=== PATIENT | male | born 1995 | race Caucasian/White ===

== ENCOUNTER 2019-11-20 17:00 | Emergency (ER) | payer OTHER, SELFPAY ==
[2019-11-20 17:14] VITALS: BP 125/78; PULSE 105; RESP 16; TEMP 36.4; O2SAT 99
--- NOTE | 2019-11-20 18:19 | ED.WOUNDLAC ---
HPI - Wound/Laceration General Chief Complaint: Wound/Laceration Stated Complaint: Infection Source: patient and RN notes reviewed Mode of arrival: ambulatory Limitations: no limitations History of Present Illness HPI narrative: The patient, on several medications for mood, presents with skin eruption. Patient states he has a shorter, couple day history of inflamed macule at the top of his gluteal crease. No prior rash, fever, discharge, tenesmus; symptoms are mild and improved partially after he tried to express fluid from it. Discussed possible causes including superficial folliculitis versus a deeper pilonidal cyst and will treat conservatively without incising at this early time. Related Data Home Medications Medication Instructions Recorded Confirmed clonazepam 0.5 mg PO DAILY 11/20/19 11/20/19 quetiapine 100 mg PO DAILY 11/20/19 11/20/19 venlafaxine 75 mg PO DAILY 11/20/19 11/20/19 zolpidem 10 mg PO DAILY 11/20/19 11/20/19 Allergies Allergy/AdvReac Type Severity Reaction Status Date / Time No Known Allergies Allergy Unknown Unverified 11/03/18 12:18 Review of Systems Review of Systems: Narrative: General/Constitutional: No weight loss,fever Eyes: N0: Redness,discharge Ears/Nose/Throat: No: Epistaxis,ear discharge Respiratory: Denies: Hemoptysis Gastrointestinal: No Vomiting, Bleeding-rectal Skin: No Lumps, eruption Neurologic: No Focal Weakness,Sz Hematologic: Denies: Petechiae/Purpura Psychiatric: No: Suicida ideationl All Other Systems: Reviewed and Negative PMFSH Comments At time of signature, agree with nursing past medical, surgical, social and family history. There is no relevant family history pertinent to the presenting complaint Exam Narrative: Exam Narrative: General Appearance: Well-nourished, Normocephalic Eye: PERRLA, Conjunctiva clear Mouth/Throat: Normal appearing, Supple Respiratory: Airway patent, No respiratory distress Musculoskeletal: Moves all extremities, Non tender Skin: Warm, Dry smaller rhiannon-sized macule at top of gluteal crease with slight surrounding redness; no abscess/fluctuance/induration Neurological: A&O x3, Normal affect Course Vital Signs Vital signs: Vital Signs Temperature 97.5 F L 11/20/19 17:14 Pulse Rate 105 H 11/20/19 17:14 Respiratory Rate 16 11/20/19 17:14 Blood Pressure 125/78 11/20/19 17:14 Pulse Oximetry 99 11/20/19 17:14 Temperature 97.5 F L 11/20/19 17:14 Pulse Rate 105 H 11/20/19 17:14 Respiratory Rate 16 11/20/19 17:14 Blood Pressure 125/78 11/20/19 17:14 Pulse Oximetry 99 11/20/19 17:14 Discharge Plan Discharge Clinical Impression: Folliculitis Patient Disposition: Home, Self-Care Condition: Stable Instructions: Antibiotic Form, Pilonidal Cyst (ED), Folliculitis (ED) Prescriptions: New mupirocin 2 % ointment 1 applic TOPICAL TID Qty: 30 RF: 0 clindamycin HCl 300 mg capsule 300 mg PO Q6H Qty: 21 RF: 0 No Action venlafaxine 75 mg capsule,extended release 24hr 75 mg PO DAILY RF: 0 clonazepam 0.5 mg tablet 0.5 mg PO DAILY RF: 0 quetiapine 100 mg tablet 100 mg PO DAILY RF: 0 zolpidem 10 mg tablet 10 mg PO DAILY RF: 0 Interventions: Discharge Disposition Last Done: 11/20/19 17:25 Follow-up/Referrals: PHYSICIAN NOT ON STAFF,NONSTAFF [Primary Care Provider] - Discharge Date/Time: 11/20/19 17:25
== END 2019-11-20 17:25 | disposition home or self-care (01) ==
PROVIDERS: Emergency Provider Emergency Medicine
DX: L73.9 Follicular disorder, unspecified (principal); F31.9 Bipolar disorder, unspecified; F41.9 Anxiety disorder, unspecified
CPT/HCPCS: 99213; G0463

== ENCOUNTER 2019-11-24 17:35 | Emergency (ER) | payer OTHER, SELFPAY ==
[2019-11-24 17:40] VITALS: BP 113/81; PULSE 106; RESP 16; TEMP 36.9; O2SAT 99
--- NOTE | 2019-11-24 17:46 | ED.EYEPROB ---
HPI - Eye Problem General Chief complaint: Eye Problems Stated complaint: redness left eye Time Seen by Provider: 11/24/19 17:46 Source: patient and RN notes reviewed Mode of arrival: ambulatory Limitations: no limitations History of Present Illness HPI Narrative: 24-year-old male presents with concern for left eye redness, discharge, irritation. Denies wearing contact lenses, denies eye pain or vision changes. Denies any intervention for his problem chief complaint: eye redness Related Data Home Medications Medication Instructions Recorded Confirmed clonazepam 0.5 mg PO DAILY 11/20/19 11/24/19 quetiapine 100 mg PO DAILY 11/20/19 11/24/19 venlafaxine 75 mg PO DAILY 11/20/19 11/24/19 zolpidem 10 mg PO DAILY 11/20/19 11/24/19 Allergies Allergy/AdvReac Type Severity Reaction Status Date / Time No Known Allergies Allergy Unknown Verified 11/24/19 17:48 Review of Systems Review of Systems: Narrative: CONSTITUTIONAL: Denies malaise, chills, sweats, or fever. EYES: Denies visual changes. Reports left eye redness, purulent discharge. ENT: Denies rhinorrhea, congestion, sinus pain, otalgia or sore throat. RESPIRATORY: Denies cough or dyspnea. SKIN: Denies rash or itching. NEUROLOGIC: Denies headache. All systems reviewed & are unremarkable except as noted in HPI and below PMFSH Comments At time of signature, agree with nursing past medical, surgical, social and family history. There is no relevant family history pertinent to the presenting complaint Exam Narrative: Exam Narrative: GENERAL: Well-appearing, well-nourished, and in no acute distress. HEAD: Normocephalic, atraumatic. EYES: PERRLA and EOMI. No nystagmus. Left eye conjunctive and sclera clear. Right eye conjunctive and sclera injected, drainage noted ENT: Nares clear. Mucous membranes moist. Oropharynx without erythema or lesions. Tonsils not enlarged and without exudate. NECK: Supple. CHEST: No respiratory distress. Speaks in full sentences. HEART: Regular rate and rhythm SKIN: Warm, dry, no rash. NEURO: Alert and oriented x3. PSYCH: Normal mood and affect Course Course Emergency Course: Patient is aware of diagnosis, understands and agrees to treatment plan. Anticipatory guidance given. Patient agrees to follow-up as directed and is aware of reasons to seek care at the emergency department. Portions of this record may have been created with voice recognition software Vital Signs Vital signs: Vital Signs Temperature 98.5 F 11/24/19 17:40 Pulse Rate 106 H 11/24/19 17:40 Respiratory Rate 16 11/24/19 17:40 Blood Pressure 113/81 11/24/19 17:40 Pulse Oximetry 99 11/24/19 17:40 Temperature 98.5 F 11/24/19 17:40 Pulse Rate 106 H 11/24/19 17:40 Respiratory Rate 16 11/24/19 17:40 Blood Pressure 113/81 11/24/19 17:40 Pulse Oximetry 99 11/24/19 17:40 Reviewed. MDM - Eye Problem MDM Narrative Medical decision making narrative: Consideration of the following conditions may be warranted for the presenting problem, they are not final diagnoses: Bacterial conjunctivitis, allergic conjunctivitis, viral conjunctivitis, foreign body, blepharitis, chalazion, hordeolum, corneal abrasion. Exam findings show no acute concerns or changes; patient is non-toxic appearing and is in no distress. Patient is appropriate for outpatient treatment and follow-up. Critical Care Time Critical Care Time Critical Care Time: No Discharge Plan Discharge Clinical Impression: Conjunctivitis Qualifiers: Conjunctivitis type: acute Acute conjunctivitis type: bacterial Laterality: left Qualified Code(s): H10.32 - Unspecified acute conjunctivitis, left eye Patient Disposition: Home, Self-Care Condition: Stable Instructions: Conjunctivitis (ED) Additional Instructions: Do not touch or rub your eye. Use a warm or cool washcloth on your eye for comfort Use eyedrops as directed Practice good handwashing and hygiene to prevent spread
== END 2019-11-24 18:01 | disposition home or self-care (01) ==
PROVIDERS: Emergency Provider Nurse Practitioner
DX: H10.32 Unspecified acute conjunctivitis, left eye (principal); F41.9 Anxiety disorder, unspecified; F31.9 Bipolar disorder, unspecified
CPT/HCPCS: 99213; G0463

== ENCOUNTER 2020-06-03 11:10 | Emergency (ER) | payer OTHER, SELFPAY ==
[2020-06-03 11:40] VITALS: BP 112/90; PULSE 91; RESP 12; TEMP 36.8; O2SAT 97
--- NOTE | 2020-06-03 12:06 | ED.URI ---
HPI - URI/Sore Throat General Chief Complaint: Upper Respiratory Infection Stated Complaint: sore throat Source: patient and RN notes reviewed Limitations: no limitations History of Present Illness HPI Narrative: The patient, who is on several medications for mood, presents with sore throat. Patient states he has half week history of mild scratchy sore throat. No fever measured, CP, loss of taste/smell, S OB, earache, rash, V/D. Symptoms are mild, worse with swallowing Related Data Home Medications Medication Instructions Recorded Confirmed clonazepam 0.5 mg PO DAILY 11/20/19 06/03/20 quetiapine 100 mg PO DAILY 11/20/19 06/03/20 Allergies Allergy/AdvReac Type Severity Reaction Status Date / Time No Known Allergies Allergy Unknown Verified 06/03/20 11:34 Review of Systems Review of Systems: Narrative: General/Constitutional: No weight loss,fever Eyes: N0: Redness,discharge Ears/Nose/Throat: No: Epistaxis,ear discharge Respiratory: Denies: Hemoptysis Gastrointestinal: No Vomiting, Bleeding-rectal Skin: No Lumps, eruption Neurologic: No Focal Weakness,Sz Hematologic: Denies: Petechiae/Purpura Psychiatric: No: Suicida ideationl All Other Systems: Reviewed and Negative PMFSH Comments At time of signature, agree with nursing past medical, surgical, social and family history. There is no relevant family history pertinent to the presenting complaint Exam Narrative: Exam Narrative: General Appearance: Well appearing, Well nourished EYE: PERRLA, Conjunctiva clear Ears: Auditory canal normal, TM normal Nose: Rhinorrhea, Mucousal erythema Mouth/Throat: MM moist, Uvula midline, Pharyngeal erythema Neck: Supple, No adenopathy Respiratory: No respiratory distress, Breath sounds equal, Clear to auscultation Cardiovascular: No JVD Musculoskeletal: Non tender, Normal strength Skin: Warm, Dry Neurological: A&O x3, CN II-XII intact Psychiatric: Normal mood, Normal affect Course Vital Signs Vital signs: Vital Signs Temperature 98.2 F 06/03/20 11:40 Pulse Rate 91 06/03/20 11:40 Respiratory Rate 12 06/03/20 11:40 Blood Pressure 112/90 06/03/20 11:40 Pulse Oximetry 97 06/03/20 11:40 Temperature 98.2 F 06/03/20 11:40 Pulse Rate 91 06/03/20 11:40 Respiratory Rate 12 06/03/20 11:40 Blood Pressure 112/90 06/03/20 11:40 Pulse Oximetry 97 06/03/20 11:40 MDM - URI/Sore Throat Lab Data Labs: Lab Results 06/03/20 Range/Units 12:07 POC SARS CoV-2 Ag Negative (Negative) Strep Screen Presumptive Negative *(Reference Range: Negative)* Discharge Plan Discharge Clinical Impression: Pharyngitis Qualifiers: Pharyngitis/tonsillitis etiology: unspecified etiology Qualified Code(s): J02.9 - Acute pharyngitis, unspecified Patient Disposition: Home, Self-Care Condition: Stable Instructions: Antibiotic Form, Pharyngitis (ED) Prescriptions: New azithromycin 250 mg tablet See Rx Instructions .ROUTE .COMPLEX Qty: 6 RF: 0 Lidocaine Viscous 2 % solution 5 ml MUCOUS MEM QID PRN (Reason: pain) Qty: 100 RF: 0 No Action clonazepam 0.5 mg tablet 0.5 mg PO DAILY RF: 0 quetiapine 100 mg tablet 100 mg PO DAILY RF: 0 Follow-up/Referrals: PHYSICIAN,[facility] [Primary Care Provider] -
== END 2020-06-03 12:27 | disposition home or self-care (01) ==
PROVIDERS: Emergency Provider Emergency Medicine
DX: J02.9 Acute pharyngitis, unspecified (principal); Z20.822 Contact with and (suspected) exposure to COVID-19; F31.9 Bipolar disorder, unspecified; F41.9 Anxiety disorder, unspecified
CPT/HCPCS: 87081; 87426; 87880; 99213; C9803; G0463

== ENCOUNTER 2020-07-27 17:53 | Emergency (ER) | payer OTHER, SELFPAY ==
--- NOTE | ~2020-07-27 | XR_ITS ---
EXAMINATION: XR chest 2V DATE: 07/27/2020 18:08 INDICATION: Shortness of breath. Difficulty sleeping. TECHNIQUE: PA and lateral views of the chest were obtained. COMPARISON: None FINDINGS: The lungs are clear with no focal airspace opacities, pulmonary edema, pleural effusion or pneumothor ax. The cardiomediastinal silhouette is normal. Mild thoracic spondylosis. IMPRESSION: 1. No acute cardiopulmonary disease. Reviewed, dictated and finalized at location A.
[2020-07-27 17:56] VITALS: BP 105/70; PULSE 77; RESP 18; TEMP 36.7; O2SAT 98
--- NOTE | 2020-07-27 17:56 | ED.GENADULT ---
HPI - General Adult General Chief complaint: Unspecified Stated complaint: not able to sleep/difficulty breathing Source: patient Limitations: no limitations History of Present Illness HPI narrative: The patient, who has a history of substance abuse and bipolar disorder, presents with insomnia. Patient states and records review indicates he is received prescriptions for Seroquel, Suboxone, Zyprexa this month. Patient states he has had insomnia the last couple days associated with mild evening shortness of breath, and specifically requests refill for Seroquel and something for sleep. He comments his last use was over a month ago, primarily hydrocodone tablets [though he has used heroin in the remote past]. Insomnia symptoms are mild, unrelieved with OTC preparations like melatonin, he s out of clonazepam. No suicidal/homicidal ideation, flight of ideas, guilt, weight loss. Patient advised to see his regular doctors, and a small dose will be provided till then Related Data Home Medications Medication Instructions Recorded Confirmed clonazepam 0.5 mg PO DAILY 11/20/19 06/03/20 quetiapine 100 mg PO DAILY 11/20/19 06/03/20 buprenorphine-naloxone film 07/27/20 olanzapine mg 07/27/20 Allergies Allergy/AdvReac Type Severity Reaction Status Date / Time No Known Allergies Allergy Unknown Verified 06/03/20 11:34 Review of Systems Review of Systems: Narrative: General/Constitutional: No weight loss,fever Eyes: N0: Redness,discharge Ears/Nose/Throat: No: Epistaxis,ear discharge Respiratory: Denies: Hemoptysis Gastrointestinal: No Vomiting, Bleeding-rectal Skin: No Lumps, eruption Neurologic: No Focal Weakness,Sz Hematologic: Denies: Petechiae/Purpura Psychiatric: No: Suicida ideationl All Other Systems: Reviewed and Negative [facility] Comments At time of signature, agree with nursing past medical, surgical, social and family history. There is no relevant family history pertinent to the presenting complaint Exam Narrative: Exam Narrative: General Appearance: Well appearing, No distress EYE: PERRLA, Conjunctiva clear Ears: External ear normal Nose: Normal nose Mouth/Throat: Normal appearing, Normal lips Neck: Supple Respiratory: Airway patent, No respiratory distress, CTA Cardiovascular: RRR Abdomen: Soft, Non-tender, Musculoskeletal: Full ROM Skin: Warm, Dry Neurological: A&O x3, CN II-X intact Psychiatric: Normal mood, Normal affect Course Vital Signs Vital signs: Vital Signs Temperature 98.1 F 07/27/20 17:56 Pulse Rate 77 07/27/20 17:56 Respiratory Rate 18 07/27/20 17:56 Blood Pressure 105/70 07/27/20 17:56 Pulse Oximetry 98 07/27/20 17:56 Temperature 98.1 F 07/27/20 18:01 Pulse Rate 77 07/27/20 18:01 Respiratory Rate 18 07/27/20 18:01 Blood Pressure 105/70 07/27/20 18:01 Pulse Oximetry 98 07/27/20 18:01 Medical Decision Making Vital Signs Vital Signs: Vital Signs Temperature 98.1 F 07/27/20 17:56 Pulse Rate 77 07/27/20 17:56 Respiratory Rate 18 07/27/20 17:56 Blood Pressure 105/70 07/27/20 17:56 Pulse Oximetry 98 07/27/20 17:56 Temperature 98.1 F 07/27/20 18:01 Pulse Rate 77 07/27/20 18:01 Respiratory Rate 18 07/27/20 18:01 Blood Pressure 105/70 07/27/20 18:01 Pulse Oximetry 98 07/27/20 18:01 Discharge Plan Discharge Clinical Impression: Insomnia, Hx of bipolar disorder Patient Disposition: Home, Self-Care Condition: Stable Instructions: Insomnia (ED) Prescriptions: New quetiapine [Seroquel] 100 mg tablet 100 mg PO DAILY Qty: 30 RF: 1 temazepam [Restoril] 7.5 mg capsule 7.5 mg PO HS Qty: 14 RF: 0 No Action clonazepam 0.5 mg tablet 0.5 mg PO DAILY RF: 0 quetiapine 100 mg tablet 100 mg PO DAILY RF: 0 olanzapine 10 mg tablet RF: 0 buprenorphine-naloxone 8-2 mg film RF: 0 Follow-up/Referrals: UNKNOWN,DOCTOR [Primary Care Provider]
[2020-07-27 18:01] VITALS: BP 105/70; PULSE 77; RESP 18; TEMP 36.7; O2SAT 98
== END 2020-07-27 18:22 | disposition home or self-care (01) ==
PROVIDERS: Emergency Provider Emergency Medicine
DX: G47.00 Insomnia, unspecified (principal); F31.9 Bipolar disorder, unspecified; F41.9 Anxiety disorder, unspecified
CPT/HCPCS: 71046; 99213; G0463

== ENCOUNTER 2020-08-10 10:25 | Observation (INO) | payer BC, MEDICAID, SELFPAY ==
[2020-08-10] VITALS (17 sets, daily range): BP systolic 109–142; BP diastolic 68–101; PULSE 71–90; RESP 7–11; TEMP 36.2–36.6; O2SAT 98–100; BMI 20.2
--- NOTE | ~2020-08-10 | CT_ITS ---
EXAMINATION: CT brain wo con DATE: 08/10/2020 12:04 INDICATION: Dysarthria. TECHNIQUE: Computed tomography (CT) of the head was performed without intravenous contrast. The mA wa s adjusted according to patient size. Iterative reconstruction technique was employed. The dose-lengt h product was 681.00 mGy-cm. COMPARISON: None FINDINGS: There is no intracranial hemorrhage, acute infarction, or abnormal intracranial mass lesion . The ventricles are normal in size. The paranasal sinuses are clear. The orbits are normal. The mast oid air cells are normal. IMPRESSION: 1. Normal brain. Reviewed, dictated and finalized at location B. IMPRESSION: 1. Normal brain.
--- NOTE | 2020-08-10 10:38 | ECG_ITS ---
Measurements Intervals [place] Rate: 88 P: 19 MD: 173 QRS: 72 QRSD: 93 T: 28 QT: 330 QTc: 399 Interpretive Statements SINUS RHYTHM BASELINE ARTIFACT- III, V4-V5 NORMAL ECG Electronically Signed On 08-10-2020 10:59:57 CDT by Dugra Kirk D.O.
--- NOTE | 2020-08-10 10:45 | PC.NURSE ---
Pt had emesis of greenish liquid with IV initiation. No pill fragments observed.
[2020-08-10 10:54] LABS: Alveolar/Arterial O2 Gradient 17.9 mmHg; Base Excess ABG -0.7 mEq/l (+/-2.0); Fractional Inspired Oxygen 21 %; HCO3 ABG 25.3 mEq/l (22.0-26.0); Oxygen Content ABG 19.4 %vol (16.0-22.0); Oxygen Saturation ABG 94.6 % (95.0-100.0); Oxyhemoglobin 93.1 % THb (90.0-100.0); PCO2 ABG 46.6 mmHg (35.0-45.0); PO2 FiO2 Ratio Arterial Blood 3.62 %; Total Hemoglobin 14.8 g/dL (12.0-18.0); pH ABG 7.352 (7.350-7.450)
[2020-08-10 10:55] LABS: Device ROOM AIR; Modified Allen's Test Pass; Site Drawn RIGHT RADIAL
[2020-08-10 10:56] LABS: Basophils Percent Auto 0.7 % (0.2-1.2); Eosinophils Absolute Auto 0.1 K/mm3 (0-0.3); Hematocrit 41.7 % (42.0-52.0); Hemoglobin 14.2 g/dL (14.0-18.0); Immature Granulocyte Absolute 0.02 K/mm3 (0.00-0.031); Immature Granulocyte Percent A 0.3 % (0-0.5); Lymphocytes Absolute Auto 1.84 K/mm3 (0.9-3.2); Lymphocytes Percent Auto 30.7 % (18.3-44.2); Mean Corpuscular HGB Conc 34.1 g/dl (32-36); Mean Corpuscular Hemoglobin 30.7 pg (26-34); Mean Corpuscular Volume 90.1 fl (80-100); Monocytes Absolute Auto 0.5 K/mm3 (0.1-0.6); Monocytes Percent Auto 8.5 % (2.6-8.5); Neutrophils Absolute Auto 3.5 K/mm3 (1.3-6.7); Neutrophils Percent Auto 57.8 % (45.5-73.1); Platelet Count Result 293 k/mm3 (150-375); Red Blood Count 4.63 M/mm3 (4.6-6.20); Red Cell Distribution Width 12.6 % (11.5-14.5)
--- NOTE | 2020-08-10 11:00 | PC.NURSE ---
Spoke with Shira from Poison Control - treat symptoms. Peak may go as high as 72 hours
--- NOTE | 2020-08-10 11:00 | ED.OVERDOSE ---
HPI - Overdose General Chief Complaint: Overdose Stated Complaint: OD History of Present Illness HPI Narrative: Patient is a 24-year-old male who presents ER after ingesting approximately 32 tablets of carbamazepine 200 mg extended release. Reports about 2 AM he started taking 5 pills every hour. Reports he wanted to get high. Reports he is never taken pills like this to get high previously. Patient has history of bipolar disorder. He reports that his grandmother is currently dying and on hospice he is very anxious about this and that is another reason he began to take the pills. Denies any attempt to take his own life or any previous attempt to take his own life. Patient contacted family who called 911 because he was slurring his speech this morning and could not move his left leg. He is not able to move his leg but is still very slurry when he speaks. Related Data Home Medications Medication Instructions Recorded Confirmed quetiapine 100 mg PO DAILY 11/20/19 08/10/20 acamprosate 333 mg PO TID 08/10/20 08/10/20 buprenorphine-naloxone 1 film BUCCAL BID 08/10/20 08/11/20 carbamazepine 200 mg PO BID 08/10/20 08/10/20 gabapentin 300 mg PO TID 08/10/20 08/10/20 hydroxyzine HCl 25 mg PO BID 08/10/20 08/10/20 olanzapine 15 mg PO DAILY 08/10/20 08/10/20 propranolol 20 mg PO TID 08/10/20 08/10/20 Allergies Allergy/AdvReac Type Severity Reaction Status Date / Time No Known Allergies Allergy Unknown Verified 08/10/20 11:06 Review of Systems Review of Systems: All systems reviewed & are unremarkable except as noted in HPI and below Constitutional: Constitutional: Denies chills and Denies fever(s) ENT: Denies nasal congestion and Denies sore throat Cardiovascular: Cardiovascular: Denies chest pain and Denies radiating jaw, neck or arm pain Respiratory: Respiratory: Denies cough, Denies dyspnea and Denies wheezing Psychiatric: Psychiatric: Reports anxiety, Reports depression, Denies homicidal ideation and Denies suicidal ideation [facility] Past Medical History Medical History (Updated 08/11/20 @ 23:12 by Aleksander Galarza MD) Alcoholism Bipolar 1 disorder Polysubstance abuse Schizoaffective disorder Surgical History Surgical History (Updated 08/10/20 @ 15:08 by Britany Radford NP) History of facial surgery Jaw reconstruction No pertinent past surgical history Family History Family History (Updated 08/10/20 @ 15:09 by Britany Radford NP) Father Drug abuse Mother Depression Social History Social History (Updated 08/10/20 @ 15:12 by Britany Radford NP) Social History: The patient is single. The patient was back and forth between his mom and dad's house. The patient is disabled due to his mental illness. The patient does not smoke is lifelong nonsmoker. The patient is a full code. He does not have any children. The patient has a history of alcohol abuse. He has a history of polysubstance abuse. The patient last drank approximately 1 week ago. Smoking packs per day: 1 Smoking cigarettes per day: 20.0 Smoking status: Current every day smoker Alcohol intake: unknown Substance use: unknown Gender identity (if verbalized by the patient): Male Spiritual care concerns: No Exam Narrative: Exam Narrative: GENERAL: Well-appearing, well-nourished, and in no acute distress. HEAD: Normocephalic, atraumatic. EYES: PERRL and EOMI. ENT: Mucous membranes moist. CHEST: Clear to auscultation. No respiratory distress. HEART: Regular rate and rhythm. Normal peripheral pulses. ABDOMEN: Soft, nontender, nondistended. EXTREMITIES: Normal range of motion. No edema. SKIN: Warm, dry, no rash. NEURO: Slurred speech. Cranial nerves II through XII otherwise intact. Normal strength and movement of upper and lower extremities. Alert and oriented x3. PSYCH: Denies SI/HI. Patient is forthcoming with information. Not responding to internal stimuli.. Course Vital Signs Vital signs: Vital Signs
[2020-08-10] MEDS: PROMETHAZINE HCL 25 MG/ML AMPUL 12.5 MG IV PUSH ×3 (11:01→21:42)
[2020-08-10] MEDS: SODIUM CHLORIDE 0.9% IV 1,000 ML 999 ML IV CONT (11:04)
[2020-08-10 11:06] LABS: Acetaminophen < 10 ug/mL (10-30); Alanine Aminotransferase 16 U/L (4-50); Albumin Level 4.7 g/dL (3.5-5.1); Alkaline Phosphatase 89 U/L (38-126); Anion Gap 5 mmol/L (8-16); Aspartate Amino Transferase 26 U/L (17-59); Bilirubin,Total 0.3 mg/dL (0.2-1.3); Blood Urea Nitrogen 17 mg/dL (9-20); Calcium 9.5 mg/dL (8.4-10.2); Carbon Dioxide 32 mmol/L (22-30); Chloride 99 mmol/L (98-107); Estimated CRCL calculation 138 ml/min; Estimated Glomerular Filt Rate > 60; Ethanol < 10 mg/dL (<10); Glucose 127 mg/dL (75-110); INR 0.9; Potassium 4.2 mmol/L (3.4-5.0); Prothrombin Time 12.8 Seconds (11.1-14.7); Salicylate < 1.0 mg/dL (2-20); Sodium 136 mmol/L (137-145)
[2020-08-10 11:07] LABS: Partial Thromboplastin Time 29.9 SECONDS (22.3-36.8)
--- NOTE | 2020-08-10 11:17 | PC.NURSE ---
Per Poison Control personnel, do not suggest activated charcoal at this time. Recommend awaiting tegretol level.
[2020-08-10 11:52] LABS: Add Urine Microscopic? YES; Appearance Urine Clear (Clear); Bilirubin Urine Negative (Negative); Blood Urine 1+ (Negative); Color Urine Yellow (Yellow); Glucose Urine UA Negative (Negative); Ketones Urine Negative (Negative); Leukocyte Esterase Ur Negative LEU/UL (Negative); Mucus Urine Rare /lpf; Nitrate Urine Negative (Negative); Protein Urine Negative (Negative); RBC Urine 21-50 /hpf (0-2); Specific Grav Ur 1.024 (1.001-1.035); Urobilinogen Urine Negative mg/dL (<2.0); WBC Urine 0-3 /hpf
--- NOTE | 2020-08-10 12:19 | PC.NURSE ---
Pt returns from CT. Easily arousable but remains extremely drowsy. Awakens himself with snoring occasionally. Denies nausea. Mother at bedside updated on care.
[2020-08-10 12:25] LABS: Amphetamine Screen Urine Negative (Negative); Barbiturate Screen Urine Negative (Negative); Benzodiazepines Screen Urine Negative (Negative); Cannabinoid Screen Urine Negative (Negative); Cocaine Screen Urine Negative (Negative); Methadone Screen Urine Negative (Negative); Opiate Screen Urine Negative (Negative); Phencyclidine Screen Urine Negative (Negative)
--- NOTE | 2020-08-10 12:33 | PC.NURSE ---
Admission orders received. Awaiting bed assignment.
--- NOTE | 2020-08-10 12:47 | PC.NURSE ---
Continue to await bed assignment. Pt asleep on stretcher. Easily arousable, but unable to stay awake for more than a few minutes. Pt's speech becoming more slurred and difficult to understand.
[2020-08-10] MEDS: LACTATED RINGERS 1,000 ML 125 ML IV CONT ×2 (12:50→19:57)
--- NOTE | 2020-08-10 13:30 | PC.NURSE ---
MAYA Garg for Hospitalist, at bedside for evaluation.
--- NOTE | 2020-08-10 13:55 | PC.NURSE ---
Per MAYA Garg, mother does not wish crisis contacted for personal reasons and relationship with them.
--- NOTE | 2020-08-10 14:43 | PC.NURSE ---
Per [facility], monitor sodium, as overdose can cause hyponatremia. Monitor BUN and Creatinine as levels can be altered as well with tegretol overdoses.
--- NOTE | 2020-08-10 14:53 | PM.IMHP ---
H&P: HPI History of Present Illness Date/Time: 08/10/20 14:53Thiosito is a 24-year-old female patient who has a history of alcoholism, narotic abuse, schizoaffective bipolar disorder, generalized anxiety, and methamphetamine abuse. The patient has had multiple medication changes over the last few months. The patient has gone to [facility] in the past for drugs and alcohol rehab. The patient was on Seroquel then taken off and then he was placed back on Seroquel. The patient has been dealing with a very ill grandmother that has been upsetting him and the patient has not been sleeping very well over the last couple nights. The patient is disabled due to his mental diseases. The patient resides with his parents. The patient stays with his mom some days and then lives with his dad other days. His mother noticed that he started drinking alcohol again this past week ,she noticed that some of the bottles were empty. The patient's mother made him his get rid of the alcohol bottles. The patient's mother was giving him his medications daily and he around her trust so she allowed him to take his own medication once again. The patient had overdosed on and diazepam in the past and is no longer prescribe this. Looks like the patient may be on hydroxyzine for his anxiety. The mother noticed that he has been more anxious recently due to his grandmother's illness. The patient had been ingesting approximately 32 tablets of carbamazepine 200 mg extended release. He started taking them at 2:00 a.m. and took 5 pills every hour. The patient told his mother that he was just trying to get high and get some sleep. The family contacted 911 because he was slurring speech this morning and could move his left leg. Carbamazepine level was drawn and sent out. I spoke with Dr. Guillaume the psychiatrist who stated if the patient is willing to be admitted to to she inpatient when he is medically stable he will accept the patient I spoke with the mother who is in agreement. The patient is too lethargic to answer questions at this time. The patient is being admitted to ICU as observation status on 08/10/2020. Chief Complaint: Overdose Review of Systems Review of Systems: All systems reviewed & are unremarkable except as noted in HPI and below Constitutional: Constitutional: Reports as per HPI and Reports no additional constitutional complaints Eyes: Eyes: Reports as per HPI and Reports no additional eye complaints ENT: Reports system reviewed and no additional complaints, except as documented and Reports Normal hearing present Cardiovascular: Cardiovascular: Reports no additional cardiovascular complaints Respiratory: Respiratory: Reports no additional respiratory complaints and Reports no additional respiratory complaints Gastrointestinal: Gastrointestinal: Reports as per HPI and Reports no additional gastrointestinal complaints Musculoskeletal: Musculoskeletal: Reports no additional musculoskeletal complaints Integumentary/Breasts: Skin/Breast: Reports system reviewed and no additional complaints, except as docu and Reports as per HPI Neurologic: Reports system reviewed and no additional complaints, except as documented, Reports as per HPI and Reports Normal hearing present Psychiatric: Psychiatric: Reports no additional psychiatric complaints and Reports as per HPI Endocrine: Endocrine: Reports no additional endocrine complaints Hematologic/Lymphatic: Hematologic/Lymphatic: Reports no additional hematologic/lymphatic complaints Allergic/Immunologic: Allergic/Immunologic: Reports no additional allergic/immunologic complaints [facility] Past Medical History Medical History (Updated 08/10/20 @ 15:08 by Britany Radford NP) Alcoholism Bipolar 1 disorder Polysubstance abuse Schizoaffective disorder Surgical History Surgical History (Updated 08/10/20 @ 15:08 by Britany Radford NP) History of facial surgery Jaw reconstruction No pertinent past surgical history
--- NOTE | 2020-08-10 15:29 | ADMGEN ---
This patient, Sidney Gold, was admitted to Intensive Care Unit-11 at 1510. Patient/family oriented to hospital policies and general routines including ID bracelet, bed and alarms, visiting hours, pain management, procedures, bathroom and other care routines, personal items, smoking policy, room service/diet, and visiting hours. Information on how to activate the Rapid Response Team has been discussed. Patient/Family are encouraged to report perceived risks to care and to ask questions if they do not understand what they are told or what they should do.
--- NOTE | 2020-08-10 16:11 | PC.NURSE ---
Gave patients mom Ana Maria bottle of carbamazepime bottle to take home.
--- NOTE | 2020-08-10 18:20 | PC.NURSE ---
Poison control called at 1814, talked to Stephanie, gave lab values over phone and vital signs. Poison control has no interventions to be done at this time.
--- NOTE | 2020-08-10 23:07 | PC.NURSE ---
Call from poison control center at 2244 pm. Spoke to Stephanie who was requesting updates on patient status. Vitals and labs reviewed. To continue monitoring symptoms as well as serum sodium and BUN/ creatinine. Carbamazepine/ Tegretol levels still pending in toxicology. Stephanie recommends obtaining a second serum Tegretol level to compare level trends.
--- NOTE | 2020-08-10 23:20 | PC.NURSE ---
Spoke with Britany Radford NP at 2300 about poison controls recommendation for repeat Tegretol level. Tegretol level order and to be collected.
[2020-08-11] VITALS (8 sets, daily range): BP systolic 96–102; BP diastolic 39–71; PULSE 60–71; RESP 8–18; TEMP 36.3–36.8; O2SAT 91–100
[2020-08-11] MEDS: LACTATED RINGERS 1,000 ML 125 ML IV CONT ×2 (03:12→12:38)
[2020-08-11 04:35] LABS: Basophils Percent Auto 0.6 % (0.2-1.2); Eosinophils Absolute Auto 0.1 K/mm3 (0-0.3); Hematocrit 35.1 % (42.0-52.0); Immature Granulocyte Absolute 0.01 K/mm3 (0.00-0.031); Immature Granulocyte Percent A 0.2 % (0-0.5); Lymphocytes Absolute Auto 1.35 K/mm3 (0.9-3.2); Mean Corpuscular HGB Conc 34.2 g/dl (32-36); Mean Corpuscular Hemoglobin 30.5 pg (26-34); Mean Corpuscular Volume 89.1 fl (80-100); Mean Platelet Volume 8.9 fl (7.4-10.4); Monocytes Absolute Auto 0.4 K/mm3 (0.1-0.6); Monocytes Percent Auto 7.2 % (2.6-8.5); Platelet Count Result 204 k/mm3 (150-375); Red Blood Count 3.94 M/mm3 (4.6-6.20); Red Cell Distribution Width 12.1 % (11.5-14.5); White Blood Count 4.8 K/mm3 (4.5-10.0)
[2020-08-11 04:45] LABS: Alanine Aminotransferase 12 U/L (4-50); Albumin Level 3.9 g/dL (3.5-5.1); Alkaline Phosphatase 64 U/L (38-126); Anion Gap 3 mmol/L (8-16); Aspartate Amino Transferase 19 U/L (17-59); Bilirubin,Total 0.3 mg/dL (0.2-1.3); Blood Urea Nitrogen 12 mg/dL (9-20); Calcium 8.8 mg/dL (8.4-10.2); Carbon Dioxide 29 mmol/L (22-30); Chloride 102 mmol/L (98-107); Estimated CRCL calculation 139 ml/min; Estimated Glomerular Filt Rate > 60; Glucose 92 mg/dL (75-110); Magnesium 1.8 mg/dL (1.6-2.3); Potassium 3.9 mmol/L (3.4-5.0); Sodium 134 mmol/L (137-145)
[2020-08-11 05:51] LABS: Thyroid Stimulating Hormone Reflex 0.201 uIU/mL (0.465-4.68)
[2020-08-11 08:19] LABS: Free T4 Free Thyroxine Reflex 0.63 ng/dL (0.78-2.19)
[2020-08-11] MEDS: ENOXAPARIN 40 MG/0.4 ML SYRINGE SUB-Q (08:53)
--- NOTE | 2020-08-11 10:47 | PCNSR ---
On 08/11/20, the student, Anita Asencio, provided care and completed [facility] documentation on this patient. I have reviewed the student's documentation and agree with the findings.
--- NOTE | 2020-08-11 13:18 | PC.NURSE ---
[place] Poison control called at 914, update given, they stated when doctor states pt is medically stable to transfer to other facility that that is ok with them
--- NOTE | 2020-08-11 14:35 | PM.TDS ---
Transfer Discharge Sum: Prov Provider Date of admission: 08/10/20 12:33 Primary care physician: Maranda Carlos, PA Admitting clinician: Danis Mckeon MD Consults: 08/10/20 Care Coordination Consult Routine Comment: accepted to [facility] and patient when stable Reason for Consult:: Other Attending physician on discharge: Brent Mckeon Discharging clinician: Brent Mckeon Anticipated date of transfer: 08/11/20 Receiving physician/facility: [facility] DS: Admitting Diagnosis Admitting Diagnosis Admitting Diagnosis: Carbamazepine overdose DS: Discharge Diagnosis Discharge Diagnosis (1) Overdose: Code(s): T50.901A - Poisoning by unspecified drugs, medicaments and biological substances, accidental (unintentional), initial encounter Status: Acute (2) Schizoaffective disorder: Code(s): F25.9 - Schizoaffective disorder, unspecified Status: Chronic (3) Alcoholism: Code(s): F10.20 - Alcohol dependence, uncomplicated Status: Chronic (4) Polysubstance abuse: Code(s): F19.10 - Other psychoactive substance abuse, uncomplicated Status: Chronic (5) Bipolar 1 disorder: Code(s): F31.9 - Bipolar disorder, unspecified Status: Acute Transfer Discharge Sum: Med Medications Active and Home Medications: Home Medications quetiapine 100 mg PO DAILY 11/20/19 [History Confirmed 08/10/20] temazepam [Restoril] 7.5 mg PO HS #14 cap 07/27/20 [Rx Confirmed 08/10/20] acamprosate 333 mg PO TID 08/10/20 [History Confirmed 08/10/20] buprenorphine-naloxone 1 film BUCCAL BID 08/10/20 [History Confirmed 08/11/20] carbamazepine 200 mg PO BID 08/10/20 [History Confirmed 08/10/20] gabapentin 300 mg PO TID 08/10/20 [History Confirmed 08/10/20] hydroxyzine HCl 25 mg PO BID 08/10/20 [History Confirmed 08/10/20] olanzapine 15 mg PO DAILY 08/10/20 [History Confirmed 08/10/20] propranolol 20 mg PO TID 08/10/20 [History Confirmed 08/10/20] Active Medications Acetaminophen (Acetaminophen 325 Mg Tablet) 650 mg PO Q4H PRN PRN Reason: Mild Pain (1-3) or Fever Enoxaparin Sodium (Enoxaparin 40 Mg/0.4 Ml Syringe) 40 mg SUB-Q DAILY [facility] Last Admin: 08/11/20 08:53 Dose: 40 mg Documented by: Lactated Ringer's (Lr - Lactated Ringers Iv) 1,000 mls @ 125 mls/hr IV CONT .Q8H [facility] Last Admin: 08/11/20 12:38 Dose: 125 mls/hr Documented by: Promethazine HCl (Promethazine Hcl 25 Mg/Ml Ampul) 12.5 mg IV PUSH Q6H PRN PRN Reason: Nausea Last Admin: 08/10/20 21:42 Dose: 12.5 mg Documented by: Transfer Discharge Sum: Hosp Hospital Course Hospital course: Sidney Gold is a 24 year old male who presents ED after ingesting approximately 32 tablets of carbamazepine 200 mg extended release. Reports about 2 AM he started taking 5 pills every hour. Reports he wanted to get high. He reports that his grandmother is currently dying and on hospice he is very anxious about this and that is another reason he began to take the pills. Denies any attempt to take his own life or any previous attempt to take his own life. Patient contacted family who called 911 because he was slurring his speech. In the ED, he was hemodynamically stable. EKG was normal. CBC, PT/PTT, and CMP were within normal limits with the exception elevated bicarb 32, glucose 127 and sodium 136. ABG showed 7.35/46.6/76 on RA. UA showed 1+ blood in 21-50 red cells but this was a catheter specimen., acetaminophen and alcohol level are negative. Carbamazepine level is pending. Brain CT was read as normal. Patient was started on IV fluids. He was admitted for further care to the ICU. Poison control was contacted. Patient remained hemodynamically stable. Sodium dropped to 134 but his bicarb and glucose levels normalized. LFTs remain normal. His TSH was low at 0.2 with a free T4 low at 0.63 of unclear significance. This will need to be repeated as an outpatient. Patient had clinical improvement. He had some
--- NOTE | 2020-08-11 16:30 | PC.NURSE ---
Pt transferred via with [employer] transporting to [facility]', report given to RN there, personal belongings sent with pt's mother, mother ledt same time pt did, 161
[2020-08-11 17:04] LABS: SARS-CoV-2 RNA PCR Negative
--- NOTE | 2020-08-12 11:19 | PC.NURSE ---
COVID negative. Dr. Mckeon aware.
[2020-08-12 20:34] LABS: GGT 40 U/L (3-70)
[2020-08-15 09:21] LABS: Carbamazepine Tegretol 15.3 mcg/mL (4.0-12.0)
[2020-08-15 09:21] LABS: Carbamazepine Tegretol 24.4 mcg/mL (4.0-12.0)
--- NOTE | 2020-08-16 15:20 | PC.NURSE ---
Carbamezpine- 15.3. NML is 4-12.
--- NOTE | 2020-08-20 12:40 | PC.NURSE ---
GGT is 40. Dr. Mckeon aware.
--- NOTE | 2020-08-24 14:58 | PC.NURSE ---
Carbamezapine Levels faxed to PCP- PORTILLO Dalton.
== END 2020-08-11 16:22 ==
LOC: ANHED 11:00 → ANHICU 13:57
PROVIDERS: Nurse Practitioner; Admitting Provider Internal Medicine; Emergency Provider Emergency Medicine; PCP Physician Assistant; Visit Provider Internal Medicine
DX: T50.901A Poisoning by unspecified drugs, medicaments and biological substances, accidental (unintentional), initial encounter (principal); F25.9 Schizoaffective disorder, unspecified; F10.20 Alcohol dependence, uncomplicated; F31.9 Bipolar disorder, unspecified; R47.81 Slurred speech; Z20.822 Contact with and (suspected) exposure to COVID-19; R53.83 Other fatigue; F41.8 Other specified anxiety disorders; F17.210 Nicotine dependence, cigarettes, uncomplicated
CPT/HCPCS: 36415; 36600; 51701; 70450; 80053; 80156; 80307; 81001; 82805; 82977; 83605; 83735; 84439; 84443; 85025; 85610; 85730; 93005; 96361; 96372; 96374; 96376; 99285; C9803; G0378; J1650; J2405; J2550; J7030; J7120; U0003; U0005

== ENCOUNTER 2020-11-16 18:28 | Emergency (ER) | payer BC, MEDICAID, SELFPAY ==
--- NOTE | 2020-11-16 18:32 | ED.GENADULT ---
HPI - General Adult General Chief complaint: Unspecified Stated complaint: cardenas/nausea/fatigue Time Seen by Provider: 11/16/20 18:36 Source: patient and RN notes reviewed Mode of arrival: ambulatory Limitations: no limitations History of Present Illness HPI narrative: 25-year-old male with history of substance abuse, overdose, bipolar disorder, schizoaffective disorder presents with concern for 1 week history of headache, nausea, fatigue. Reports he had been taking Suboxone for narcotic and alcohol withdrawal. Reports he stopped taking the medication without the advice of his doctor. Reports he does not have any of the medication remaining. He reports since he stopped the medication he has been having headache, nausea, fatigue. He denies abdominal pain, vomiting, diarrhea, body aches, chills, sweats, fever. Reports he has a prescribing doctor, however does not have a current appointment. He denies any suicidal thoughts or ideations. MD complaint: Nausea, headache, fatigue Related Data Home Medications Medication Instructions Recorded Confirmed quetiapine 100 mg PO DAILY 11/20/19 08/10/20 acamprosate 333 mg PO TID 08/10/20 08/10/20 buprenorphine-naloxone 1 film BUCCAL BID 08/10/20 08/11/20 carbamazepine 200 mg PO BID 08/10/20 08/10/20 gabapentin 300 mg PO TID 08/10/20 08/10/20 hydroxyzine HCl 25 mg PO BID 08/10/20 08/10/20 olanzapine 15 mg PO DAILY 08/10/20 08/10/20 propranolol 20 mg PO TID 08/10/20 08/10/20 Allergies Allergy/AdvReac Type Severity Reaction Status Date / Time No Known Allergies Allergy Unknown Verified 08/10/20 11:06 Review of Systems Review of Systems: CONSTITUTIONAL: Denies malaise, chills, sweats, or fever. Reports fatigue EYES: Denies visual changes, redness, or discharge. ENT: Denies rhinorrhea, congestion, sinus pain, otalgia or sore throat. CARDIOVASCULAR: Denies chest pain, palpitations, or edema. RESPIRATORY: Denies cough or dyspnea. GASTROINTESTINAL: Denies abdominal pain, vomiting, diarrhea. Reports nausea SKIN: Denies rash or itching. MUSCULOSKELETAL: Denies back pain, joint pain, or myalgia. NEUROLOGIC: Denies numbness, weakness. Reports headache. PSYCHIATRIC: Denies suicidal thoughts or ideations All systems reviewed & are unremarkable except as noted in HPI and below PMFSH Past Medical History Medical History (Updated 11/16/20 @ 18:44 by Parul Toledo NP) Alcoholism Bipolar 1 disorder Polysubstance abuse Schizoaffective disorder Surgical History Surgical History (Updated 08/10/20 @ 15:08 by Britany Radford NP) History of facial surgery Jaw reconstruction No pertinent past surgical history Family History Family History (Updated 08/10/20 @ 15:09 by Britany Radford NP) Father Drug abuse Mother Depression Social History Social History (Updated 08/10/20 @ 15:12 by Britany Radford NP) Social History: The patient is single. The patient was back and forth between his mom and dad's house. The patient is disabled due to his mental illness. The patient does not smoke is lifelong nonsmoker. The patient is a full code. He does not have any children. The patient has a history of alcohol abuse. He has a history of polysubstance abuse. The patient last drank approximately 1 week ago. Smoking packs per day: 1 Smoking cigarettes per day: 20.0 Smoking status: Current every day smoker Alcohol intake: unknown Substance use: unknown Gender identity (if verbalized by the patient): Male Spiritual care concerns: No Comments At time of signature, agree with nursing past medical, surgical, social and family history. There is no relevant family history pertinent to the presenting complaint Exam Narrative: GENERAL: Well-appearing, well-nourished, and in no acute distress. HEAD: Normocephalic, atraumatic. EYES: PERRLA, conjunctivae clear, and EOMI. No nystagmus. ENT: Nares clear. Mucous membranes moist. TM pearly jones with sharp light reflex bilaterally;
[2020-11-16 18:33] VITALS: BP 110/63; PULSE 92; RESP 16; TEMP 36.6; O2SAT 98
[2020-11-16 18:37] VITALS: BP 110/63; PULSE 92; RESP 16; TEMP 36.6; O2SAT 98
== END 2020-11-16 18:49 | disposition home or self-care (01) ==
PROVIDERS: Emergency Provider Nurse Practitioner
DX: R11.2 Nausea with vomiting, unspecified (principal); F31.9 Bipolar disorder, unspecified; F25.9 Schizoaffective disorder, unspecified; F17.210 Nicotine dependence, cigarettes, uncomplicated
CPT/HCPCS: 99213; G0463

== ENCOUNTER 2020-12-19 18:51 | Emergency (ER) | payer BC, MEDICAID, SELFPAY ==
--- NOTE | ~2020-12-19 | XR_ITS ---
XR chest 1V portable DATE: 12/19/2020 21:11 INDICATION: Chest pain. Heroin overdose. TECHNIQUE: Portable supine AP view on 12/19/2020 at 2107 hours COMPARISON: 07/27/2020 PA and lateral chest FINDINGS: Heart size is normal. There are patchy infiltrates scattered throughout both lung montoya suggesting bilateral pneumonia. No pleural effusion or pneumothorax. IMPRESSION: Scattered patchy bilateral pulmonary infiltrates suggesting extensive bilateral pneumonia Reviewed, dictated and finalized at location A. IMPRESSION: Scattered patchy bilateral pulmonary infiltrates suggesting extensi ve bilateral pneumonia
--- NOTE | 2020-12-19 18:53 | ECG_ITS ---
Measurements Intervals [place] Rate: 92 P: 12 IN: 149 QRS: 62 QRSD: 89 T: 43 QT: 342 QTc: 425 Interpretive Statements SINUS RHYTHM BASELINE ARTIFACT- I, III, AVR, AVL, AVF NORMAL ECG Electronically Signed On 12-20-2020 6:03:05 CDT by Durga Kirk D.O.
[2020-12-19 18:54] VITALS: BP 111/82; PULSE 102; RESP 20; TEMP 36.4; O2SAT 95
[2020-12-19 19:11] LABS: Basophils Percent Auto 0.4 % (0.2-1.2); Eosinophils Percent Auto 0.3 % (0-4.4); Hematocrit 40.1 % (42.0-52.0); Hemoglobin 13.5 g/dL (14.0-18.0); Immature Granulocyte Absolute 0.03 K/mm3 (0.00-0.031); Immature Granulocyte Percent A 0.3 % (0-0.5); Lymphocytes Absolute Auto 0.62 K/mm3 (0.9-3.2); Lymphocytes Percent Auto 6.1 % (18.3-44.2); Mean Corpuscular HGB Conc 33.7 g/dl (32-36); Mean Corpuscular Hemoglobin 31.1 pg (26-34); Mean Corpuscular Volume 92.4 fl (80-100); Mean Platelet Volume 8.7 fl (7.4-10.4); Monocytes Absolute Auto 0.4 K/mm3 (0.1-0.6); Monocytes Percent Auto 4.3 % (2.6-8.5); Neutrophils Absolute Auto 9.1 K/mm3 (1.3-6.7); Neutrophils Percent Auto 88.6 % (45.5-73.1); Platelet Count Result 318 k/mm3 (150-375); Red Blood Count 4.34 M/mm3 (4.6-6.20); Red Cell Distribution Width 12.4 % (11.5-14.5); White Blood Count 10.2 K/mm3 (4.5-10.0)
[2020-12-19 19:12] VITALS: RESP 16
[2020-12-19 19:29] LABS: Alanine Aminotransferase 16 U/L (4-50); Alkaline Phosphatase 102 U/L (38-126); Anion Gap 11 mmol/L (8-16); Aspartate Amino Transferase 22 U/L (17-59); Bilirubin,Total 0.3 mg/dL (0.2-1.3); Blood Urea Nitrogen 7 mg/dL (9-20); Calcium 9.7 mg/dL (8.4-10.2); Carbon Dioxide 27 mmol/L (22-30); Chloride 96 mmol/L (98-107); Estimated CRCL calculation 181 ml/min; Estimated Glomerular Filt Rate > 60; Glucose 163 mg/dL (65-110); Potassium 3.5 mmol/L (3.4-5.0); Sodium 134 mmol/L (137-145)
[2020-12-19 19:30] LABS: Acetaminophen < 10 ug/mL (10-30); Ethanol < 10 mg/dL (<10); Salicylate < 1.0 mg/dL (2-20)
[2020-12-19 19:35] LABS: Add Urine Microscopic? NO; Appearance Urine Clear (Clear); Bilirubin Urine Negative (Negative); Blood Urine Negative (Negative); Color Urine Straw (Yellow); Glucose Urine UA Negative (Negative); Ketones Urine Negative (Negative); Leukocyte Esterase Ur Negative LEU/UL (Negative); Nitrate Urine Negative (Negative); Protein Urine Negative (Negative); Specific Grav Ur 1.005 (1.001-1.035); Urobilinogen Urine Negative mg/dL (<2.0)
[2020-12-19 19:50] LABS: Amphetamine Screen Urine Negative (Negative); Barbiturate Screen Urine Negative (Negative); Benzodiazepines Screen Urine Negative (Negative); Cannabinoid Screen Urine Negative (Negative); Cocaine Screen Urine Negative (Negative); Methadone Screen Urine Negative (Negative); Opiate Screen Urine Negative (Negative); Phencyclidine Screen Urine Negative (Negative)
--- NOTE | 2020-12-19 20:41 | ED.GENADULT ---
HPI - General Adult General Chief complaint: Overdose <Ingrid Montgomery PA-C - Last Filed: 12/19/20 22:02> Stated complaint: chest pain, sob <Ingrid Montgomery PA-C - Last Filed: 12/19/20 22:02> Time Seen by Provider: 12/19/20 19:13 <Ingrid Montgomery PA-C - Last Filed: 12/19/20 22:02> Source: patient <Ingrid Montgomery PA-C - Last Filed: 12/19/20 22:02> Mode of arrival: ambulatory <Ingrid Montgomery PA-C - Last Filed: 12/19/20 22:02> Limitations: no limitations <Ingrid Montgomery PA-C - Last Filed: 12/19/20 22:02> History of Present Illness HPI narrative: Patient presents to the emergency department for evaluation after using heroin and speed over the past 3 days. Patient states it has been multiple hours since his last usage. Patient states that he normally takes Suboxone but has not taken it today. He denies using alcohol. Patient states earlier today he felt as if his heart was squeezing. Patient denies any symptoms at this time besides feeling anxious. Patient came to the emergency department stating that he feared he would from using heroin via intranasally and speED. Patient cannot give exact time primarily he used the drugs however he states it has been many hours ago. Patient denies any chest pain at this time. Patient denies any short of breath. <Ingrid Montgomery PA-C - Last Filed: 12/19/20 22:02> Related Data Home medications: Home Medications Medication Instructions Recorded Confirmed quetiapine 100 mg PO DAILY 11/20/19 08/10/20 acamprosate 333 mg PO TID 08/10/20 08/10/20 buprenorphine-naloxone 1 film BUCCAL BID 08/10/20 08/11/20 carbamazepine 200 mg PO BID 08/10/20 08/10/20 gabapentin 300 mg PO TID 08/10/20 08/10/20 hydroxyzine HCl 25 mg PO BID 08/10/20 08/10/20 olanzapine 15 mg PO DAILY 08/10/20 08/10/20 propranolol 20 mg PO TID 08/10/20 08/10/20 <Ingrid Montgomery PA-C - Last Filed: 12/19/20 22:02> Allergies/adverse reactions: Allergies Allergy/AdvReac Type Severity Reaction Status Date / Time No Known Allergies Allergy Unknown Verified 08/10/20 11:06 <Ingrid Montgomery PA-C - Last Filed: 12/19/20 22:02> Review of Systems Review of Systems: CONSTITUTIONAL: Denies fever, chills, or sweats. EYES: Denies visual changes, redness, or discharge. ENT: Denies rhinorrhea, congestion, sore throat, or otalgia. CARDIOVASCULAR: Denies chest pain, palpitations, or edema. RESPIRATORY: Denies cough or dyspnea. GASTROINTESTINAL: Denies abdominal pain, nausea, vomiting, or diarrhea. GENITOURINARY: Denies dysuria or hematuria. SKIN: Denies rash or itching. MUSCULOSKELETAL: Denies back pain, joint pain, or myalgia. NEUROLOGIC: Denies headache, numbness, dizziness, or weakness. PSYCHIATRIC: Reports anxiety and fear denies depression. <Ingrid Montgomery PA-C - Last Filed: 12/19/20 22:02> [facility] Past Medical History Medical History: Medical History (Updated 12/19/20 @ 21:36 by Ingrid Montgomery PA-C) Alcoholism Bipolar 1 disorder Polysubstance abuse Schizoaffective disorder <Ingrid Montgomery PA-C - Last Filed: 12/19/20 22:02> Surgical History Surgical History: Surgical History (Updated 08/10/20 @ 15:08 by Britany Radford NP) History of facial surgery Jaw reconstruction No pertinent past surgical history <Ingrid Montgomery PA-C - Last Filed: 12/19/20 22:02> Family History Family History: Family History (Updated 08/10/20 @ 15:09 by Britany Radford NP) Father Drug abuse Mother Depression <Ingrid Montgomery PA-C - Last Filed: 12/19/20 22:02> Social History Social History: Social History (Updated 08/10/20 @ 15:12 by Britany Radford NP) Social History: The patient is single. The patient was back and forth between his mom and dad's house. The patient is disabled due to his mental illness. The patient does not smoke is lifelong nonsmoker. The patient is a full code. He does not have any children. The patient has a history of alc
--- NOTE | 2020-12-19 20:46 | ECG_ITS ---
Measurements Intervals [place] Rate: 104 P: ND: 0 QRS: 73 QRSD: 89 T: 39 QT: 313 QTc: 413 Interpretive Statements SINUS TACHYCARDIA BASELINE ARTIFACT- I, II, III, AVR, AVL, AVF, V5-V6 BORDERLINE ECG Electronically Signed On 12-20-2020 10:55:15 CDT by Durga Kirk D.O.
[2020-12-19 21:17] VITALS: BP 126/88; PULSE 81; RESP 16; O2SAT 99
[2020-12-19] MEDS: DOXYCYCLINE HYCLATE 100 MG TABLET PO (22:46)
[2020-12-19 22:56] VITALS: BP 122/93; PULSE 97; RESP 16; O2SAT 100
[2020-12-20 19:00] LABS: SARS-CoV-2 RNA PCR Negative
== END 2020-12-19 23:03 | disposition home or self-care (01) ==
PROVIDERS: Family Medicine; Physician Assistant; Emergency Provider General Practice
DX: F19.10 Other psychoactive substance abuse, uncomplicated (principal); J18.9 Pneumonia, unspecified organism; F31.9 Bipolar disorder, unspecified; F25.9 Schizoaffective disorder, unspecified; Z20.822 Contact with and (suspected) exposure to COVID-19; Z79.899 Other long term (current) drug therapy
CPT/HCPCS: 36415; 71045; 80053; 80307; 81003; 84443; 85025; 93005; 99283; A9270; C9803; U0003; U0005

== ENCOUNTER 2020-12-22 19:14 | Emergency (ER) | payer BC, MEDICAID, SELFPAY ==
[2020-12-22 19:24] VITALS: BP 112/84; PULSE 93; RESP 16; TEMP 36.4; O2SAT 100
--- NOTE | 2020-12-22 19:39 | ED.GENADULT ---
HPI - General Adult General Chief complaint: Nausea/Vomiting/Diarrhea Stated complaint: SICK Source: patient Mode of arrival: ambulatory Limitations: no limitations History of Present Illness HPI narrative: Patient is a 25-year-old male who presents to the ER via POV for evaluation of nausea and vomiting that has been present for 3 days. Additionally, he reports chills, shortness of breath, and decreased appetite. He states he has had 4-5 episodes of 2 days of vomiting undigested food. He reports nausea to be mild. Denies taking OTC meds for symptoms. Nothing improves or worsen symptoms. Of note, patient reports he was diagnosed with pneumonia. 3 days ago at [facility]. He states he was getting antibiotics at that time and has been taking them as prescribed. Related Data Home Medications Medication Instructions Recorded Confirmed quetiapine 100 mg PO DAILY 11/20/19 08/10/20 acamprosate 333 mg PO TID 08/10/20 08/10/20 buprenorphine-naloxone 1 film BUCCAL BID 08/10/20 08/11/20 carbamazepine 200 mg PO BID 08/10/20 08/10/20 gabapentin 300 mg PO TID 08/10/20 08/10/20 hydroxyzine HCl 25 mg PO BID 08/10/20 08/10/20 olanzapine 15 mg PO DAILY 08/10/20 08/10/20 propranolol 20 mg PO TID 08/10/20 08/10/20 Allergies Allergy/AdvReac Type Severity Reaction Status Date / Time No Known Allergies Allergy Unknown Verified 08/10/20 11:06 Review of Systems Review of Systems: Denies past abdominal medical history. Pertinent negatives fever, sweats, malaise, poor p.o. intake, change in appetite, recent weight loss, lymphadenopathy, headache, sore throat, cough, nasal congestion, nasal drainage, negative sinus problems, dizziness, LOC, urinary sxs, back/flank pain, extremity paresthesias, blood in stool, diarrhea, constipation, belching, bloating, dry mouth, heartburn, jaundice, vomiting blood, and testicular pain. [facility] Past Medical History Medical History Alcoholism Bipolar 1 disorder Polysubstance abuse Schizoaffective disorder Surgical History Surgical History History of facial surgery Jaw reconstruction No pertinent past surgical history Family History Family History Father Drug abuse Mother Depression Social History Social History Social History: The patient is single. The patient was back and forth between his mom and dad's house. The patient is disabled due to his mental illness. The patient does not smoke is lifelong nonsmoker. The patient is a full code. He does not have any children. The patient has a history of alcohol abuse. He has a history of polysubstance abuse. The patient last drank approximately 1 week ago. Smoking packs per day: 1 Smoking cigarettes per day: 20.0 Smoking status: Current every day smoker Alcohol intake: unknown Substance use: unknown Gender identity (if verbalized by the patient): Male Spiritual care concerns: No Comments I have reviewed and agree with the patient's past medical, surgical, social, and family hx as documented by the RN. There is no relevant family history pertinent to the presenting complaint. Exam Narrative: GENERAL: Well-appearing, well-nourished, and in no acute distress. HEAD: Normocephalic, atraumatic. No sinus tenderness or facial swelling appreciated. EYES: PERRLA and EOMI. No evidence of erythema, swelling, or drainage. ENT: Bilateral external ears and ear canals normal. Bilateral TMs are normal.No TM perforation. Nares clear, no rhinorrhea or epistaxis. Bilateral turbinates without erythema/ swelling. Mucous membranes moist and pink. Uvula is midline without erythema and swelling. No evidence of petechial rash, cobblestoning, lesions, ulcers, erythema, swelling, exudates, peritonsillar abscess, tent
== END 2020-12-22 19:39 | disposition short-term general hospital (02) ==
PROVIDERS: Emergency Provider Nurse Practitioner Family
DX: R11.2 Nausea with vomiting, unspecified (principal); F17.210 Nicotine dependence, cigarettes, uncomplicated; F31.9 Bipolar disorder, unspecified; F20.9 Schizophrenia, unspecified
CPT/HCPCS: 99213; G0463

== ENCOUNTER 2021-03-02 17:42 | Emergency (ER) | payer BC, MEDICAID, SELFPAY ==
--- NOTE | 2021-03-02 18:03 | ED.MALEGU ---
HPI - Male Genitourinary General Chief complaint: Urogenital-Male Stated complaint: SWELLING Time Seen by Provider: 03/02/21 18:29 Source: patient and RN notes reviewed Mode of arrival: ambulatory Limitations: no limitations History of Present Illness HPI Narrative: 25-year-old male presents with concern for swelling of the shaft of the penis. He reports it started yesterday. He reports he used a lotion on the area yesterday that he has never used before. He denies any painful urination, burning with urination, difficulty urinating, testicular redness, pain, swelling, fever, body aches, chills, sweats. Denies discharge from the penis. Denies similar problems like this in the past. He denies injury or trauma to the penis. Reports it is not painful unless he touches it. MD Complaint: other (Penile swelling) Related Data Home Medications Medication Instructions Recorded Confirmed quetiapine 100 mg PO DAILY 11/20/19 08/10/20 acamprosate 333 mg PO TID 08/10/20 08/10/20 buprenorphine-naloxone 1 film BUCCAL BID 08/10/20 08/11/20 carbamazepine 200 mg PO BID 08/10/20 08/10/20 gabapentin 300 mg PO TID 08/10/20 08/10/20 hydroxyzine HCl 25 mg PO BID 08/10/20 08/10/20 olanzapine 15 mg PO DAILY 08/10/20 08/10/20 propranolol 20 mg PO TID 08/10/20 08/10/20 Allergies Allergy/AdvReac Type Severity Reaction Status Date / Time No Known Allergies Allergy Unknown Verified 03/02/21 17:59 Review of Systems Review of Systems: CONSTITUTIONAL: Denies malaise, chills, sweats, or fever. GASTROINTESTINAL: Denies abdominal pain, nausea, vomiting, diarrhea, bloody, or mucous stools. GENITOURINARY: Denies dysuria, frequency, urgency or hematuria. Denies testicular swelling, pain, redness. Reports swelling of the shaft of the penis SKIN: Denies rash or itching. MUSCULOSKELETAL: Denies myalgia. All systems reviewed & are unremarkable except as noted in HPI and below PMFSH Past Medical History Medical History Alcoholism Bipolar 1 disorder Polysubstance abuse Schizoaffective disorder Surgical History Surgical History History of facial surgery Jaw reconstruction No pertinent past surgical history Family History Family History Father Drug abuse Mother Depression Social History Social History Social History: The patient is single. The patient was back and forth between his mom and dad's house. The patient is disabled due to his mental illness. The patient does not smoke is lifelong nonsmoker. The patient is a full code. He does not have any children. The patient has a history of alcohol abuse. He has a history of polysubstance abuse. The patient last drank approximately 1 week ago. Smoking packs per day: 1 Smoking cigarettes per day: 20.0 Smoking status: Current every day smoker Alcohol intake: unknown Substance use: unknown Gender identity (if verbalized by the patient): Male Spiritual care concerns: No Comments At time of signature, agree with nursing past medical, surgical, social and family history. There is no relevant family history pertinent to the presenting complaint Exam Narrative: GENERAL: Well-appearing, well-nourished, and in no acute distress. HEAD: Normocephalic EYES: PERRLA, sclera clear ENT: Mucous membranes moist. NECK: Supple. No lymphadenopathy. CHEST: No respiratory distress. Speaks in full sentences. HEART: Regular rate and rhythm. ABDOMEN: Soft, nontender, nondistended, normal active bowel sounds, no palpable masses. SKIN: Warm, dry, no visible rash. NEURO: Alert and oriented x3. PSYCH: Normal mood and affect : Penis: Yes circumcised and Yes edematous Meatus: meatus normal Scrotum: scrotum normal Testes: Testes normal Male genitals images: 1. Pe
[2021-03-02 18:08] VITALS: BP 102/66; PULSE 122; RESP 18; TEMP 36.2; O2SAT 98
== END 2021-03-02 19:00 | disposition home or self-care (01) ==
PROVIDERS: Emergency Provider Nurse Practitioner; PCP Family Medicine
DX: N48.89 Other specified disorders of penis (principal); F17.210 Nicotine dependence, cigarettes, uncomplicated
CPT/HCPCS: 99213; G0463

== ENCOUNTER 2021-05-06 01:46 | Emergency (ER) | payer BC, MEDICAID, SELFPAY ==
--- NOTE | ~2021-05-06 | XR_ITS ---
EXAMINATION: XR chest 2V DATE: 05/06/2021 02:22 INDICATION: Cough. Anxiety. TECHNIQUE: Frontal and lateral views of the chest were obtained. COMPARISON: Chest single view 12/19/2020 FINDINGS: The chest demonstrates clear lungs without pneumonia, pleural effusion, or pneumothorax. Th e heart size is normal. IMPRESSION: 1. No acute cardiopulmonary disease. Reviewed, dictated and finalized at location [facility]. [employer]
[2021-05-06 01:50] VITALS: BP 138/100; PULSE 110; RESP 18; TEMP 36.9; O2SAT 99
--- NOTE | 2021-05-06 01:57 | ECG_ITS ---
Measurements Intervals [place] Rate: 107 P: 13 [place]: 144 QRS: 81 QRSD: 88 T: 45 QT: 310 QTc: 415 Interpretive Statements SINUS TACHYCARDIA ABNORMAL ECG Electronically Signed On 05-06-2021 6:50:09 INFECTIOUS DISEASE TECHNICIAN by Durga Kirk D.O.
--- NOTE | 2021-05-06 02:02 | ED.CHESTPAIN ---
HPI - Chest Pain General Chief Complaint: Anxiety Stated Complaint: Anxiety, chest pain Time Seen by Provider: 05/06/21 02:00 Source: patient Mode of arrival: ambulatory Limitations: no limitations History of Present Illness HPI narrative: Patient is a 25-year-old male complaining of left-sided chest pain, sharp, 7 out of 10, nonradiating accompanied by shortness of breath started 1 hour prior to arrival. Patient admits to feeling anxious tonight, sudden onset. Patient states that he has a history of anxiety and takes Klonopin for it, but did not take any tonight. Patient denies any abdominal pain, nausea, vomiting, diaphoresis, fever or chills. Related Data Home Medications Medication Instructions Recorded Confirmed quetiapine 100 mg PO DAILY 11/20/19 08/10/20 acamprosate 333 mg PO TID 08/10/20 08/10/20 buprenorphine-naloxone 1 film BUCCAL BID 08/10/20 08/11/20 carbamazepine 200 mg PO BID 08/10/20 08/10/20 gabapentin 300 mg PO TID 08/10/20 08/10/20 hydroxyzine HCl 25 mg PO BID 08/10/20 08/10/20 olanzapine 15 mg PO DAILY 08/10/20 08/10/20 propranolol 20 mg PO TID 08/10/20 08/10/20 Allergies Allergy/AdvReac Type Severity Reaction Status Date / Time No Known Allergies Allergy Unknown Verified 05/06/21 02:06 Review of Systems Review of Systems: All systems reviewed & are unremarkable except as noted in HPI and below Constitutional: Constitutional: Denies body ache(s), Denies chills, Denies excessive sweating, Denies fatigue, Denies fever(s), Denies headache(s), Denies lethargy, Denies malaise, Denies weakness and Denies weight loss Eyes: Eyes: Denies blurry vision, Denies change in vision and Denies loss of vision ENT: Denies dizziness, Denies ear discharge, Denies headache(s), Denies lip swelling, Denies epistaxis, Denies nasal congestion, Denies neck pain, Denies throat swelling and Denies tongue swelling Cardiovascular: Cardiovascular: Denies chest pain, Denies chest pain at rest, Denies chest pain with activity, Denies diaphoresis, Denies rapid heart rate, Denies edema, Denies irregular heart rhythm, Denies lightheadedness, Denies palpitations, Denies dyspnea and Denies dyspnea on exertion Respiratory: Respiratory: Denies chest congestion, Denies cough, Denies hemoptysis, Denies dyspnea and Denies dyspnea on exertion Gastrointestinal: Gastrointestinal: Denies abdominal pain, Denies melena, Denies hematochezia, Denies diarrhea, Denies nausea, Denies vomiting and Denies hematemesis Musculoskeletal: Musculoskeletal: Denies abnormal gait, Denies deformity, Denies joint swelling, Denies limited range of motion, Denies neck pain and Denies numbness Neurologic: Denies Abnormal speech present, Denies abnormal gait, Denies confusion, Denies dizziness, Denies headache(s), Denies focal weakness, Denies loss of vision, Denies numbness, Denies Other visual disturbances, Denies Sensory deficit (Neuro) and Denies weakness Psychiatric: Psychiatric: Denies confusion, Denies depression, Denies auditory hallucinations, Denies homicidal ideation and Denies suicidal ideation Endocrine: Endocrine: Denies cold intolerance, Denies excessive sweating, Denies fatigue, Denies heat intolerance and Denies palpitations Hematologic/Lymphatic: Hematologic/Lymphatic: Denies easy bleeding and Denies easy bruising Allergic/Immunologic: Allergic/Immunologic: Denies lip swelling, Denies throat swelling and Denies tongue swelling PMFSH Past Medical History Medical History Alcoholism Bipolar 1 disorder Polysubstance abuse Schizoaffective disorder Surgical History Surgical History History of facial surgery Jaw reconstruction No pertinent past surgical history Family History Family History Father Drug abuse Mother Depression Social History Social History (Reviewed 05/06/21 @ 02:0
[2021-05-06 02:19] LABS: Basophils Absolute Auto 0.1 K/mm3 (0.0-0.1); Basophils Percent Auto 0.6 % (0.2-1.2); Eosinophils Absolute Auto 0.2 K/mm3 (0-0.3); Eosinophils Percent Auto 1.7 % (0-4.4); Hematocrit 37.7 % (42.0-52.0); Hemoglobin 12.7 g/dL (14.0-18.0); Immature Granulocyte Absolute 0.04 K/mm3 (0.00-0.031); Immature Granulocyte Percent A 0.4 % (0-0.5); Lymphocytes Absolute Auto 1.66 K/mm3 (0.9-3.2); Lymphocytes Percent Auto 14.6 % (18.3-44.2); Mean Corpuscular HGB Conc 33.7 g/dl (32-36); Mean Corpuscular Hemoglobin 30.1 pg (26-34); Mean Corpuscular Volume 89.3 fl (80-100); Mean Platelet Volume 8.4 fl (7.4-10.4); Monocytes Absolute Auto 0.9 K/mm3 (0.1-0.6); Monocytes Percent Auto 7.7 % (2.6-8.5); Neutrophils Absolute Auto 8.5 K/mm3 (1.3-6.7); Platelet Count Result 284 k/mm3 (150-375); Red Blood Count 4.22 M/mm3 (4.6-6.20); Red Cell Distribution Width 12.9 % (11.5-14.5); White Blood Count 11.4 K/mm3 (4.5-10.0)
[2021-05-06 02:43] LABS: Anion Gap 7 mmol/L (8-16); Blood Urea Nitrogen 12 mg/dL (9-20); Calcium 9.2 mg/dL (8.4-10.2); Carbon Dioxide 27 mmol/L (22-30); Chloride 101 mmol/L (98-107); Estimated CRCL calculation 176 ml/min; Estimated Glomerular Filt Rate > 60; Glucose 112 mg/dL (65-110); Sodium 135 mmol/L (137-145)
[2021-05-06 02:48] LABS: D Dimer 0.27 ug/mL (<0.48)
[2021-05-06 02:55] LABS: Troponin I < 0.012 ng/mL (0.000-0.034)
[2021-05-06 03:27] VITALS: BP 144/99; PULSE 105; RESP 14; O2SAT 100
== END 2021-05-06 03:53 | disposition home or self-care (01) ==
PROVIDERS: Emergency Provider Emergency Medicine; PCP Family Medicine
DX: R07.89 Other chest pain (principal); F41.9 Anxiety disorder, unspecified; F31.9 Bipolar disorder, unspecified; F25.9 Schizoaffective disorder, unspecified; R00.0 Tachycardia, unspecified
CPT/HCPCS: 36415; 71046; 80048; 84484; 85025; 85380; 93005; 99284

== ENCOUNTER 2021-06-03 18:46 | Emergency (ER) | payer BC, OTHER, SELFPAY ==
--- NOTE | 2021-06-03 19:08 | ED.GENADULT ---
HPI - General Adult General Chief complaint: Headache Stated complaint: HEADACHE/L FACIAL NUMBNESS Time Seen by Provider: 06/03/21 18:54 Source: patient and RN notes reviewed Mode of arrival: ambulatory Limitations: no limitations History of Present Illness HPI narrative: Patient presents today complaining of left-sided facial numbness and states that his head feels weird. Symptoms have been present for the past 2 hours. States that the numbness on his face is to the left side of his mouth. The numbness is intermittent. He also states that he has intermittent numbness to this area at baseline due to previous jaw reconstruction surgery after it was broken. Patient denies any headache or pain to his head right now, but states he is unable to describe the sensation that he is feeling. He denies any numbness or tingling to any other part of his body. Denies dizziness, vision changes, nausea or vomiting, chest pain or shortness of breath, abdominal pain, chills or sweats, recent illness, weakness. Patient does have significant mental health history that is significant for anxiety. He has tried no treatment or medications prior to arrival. MD complaint: Left facial numbness Related Data Home Medications Medication Instructions Recorded Confirmed quetiapine 100 mg PO DAILY 11/20/19 08/10/20 acamprosate 333 mg PO TID 08/10/20 08/10/20 buprenorphine-naloxone 1 film BUCCAL BID 08/10/20 08/11/20 carbamazepine 200 mg PO BID 08/10/20 08/10/20 gabapentin 300 mg PO TID 08/10/20 08/10/20 hydroxyzine HCl 25 mg PO BID 08/10/20 08/10/20 olanzapine 15 mg PO DAILY 08/10/20 08/10/20 propranolol 20 mg PO TID 08/10/20 08/10/20 Allergies Allergy/AdvReac Type Severity Reaction Status Date / Time No Known Allergies Allergy Unknown Verified 05/06/21 02:06 Review of Systems Review of Systems: CONSTITUTIONAL: Denies body aches, fever, chills, or sweats. EYES: Denies visual changes, redness, or discharge. ENT: Denies rhinorrhea, congestion, sore throat, or otalgia. CARDIOVASCULAR: Denies chest pain, palpitations, or edema. RESPIRATORY: Denies cough or dyspnea. GASTROINTESTINAL: Denies abdominal pain, nausea, vomiting, or diarrhea. GENITOURINARY: Denies dysuria or hematuria. SKIN: Denies rash, itching, or wounds. MUSCULOSKELETAL: Denies back pain, joint pain, or myalgia. NEUROLOGIC: Denies headache,tingling, or weakness.+ Intermittent numbness to left face PSYCH: Denies depression or anxiety. [facility] Past Medical History Medical History (Updated 06/03/21 @ 19:16 by Annmarie Joseph, MELISSA, ) Alcoholism Anxiety Bipolar 1 disorder Polysubstance abuse Schizoaffective disorder Surgical History Surgical History History of facial surgery Jaw reconstruction No pertinent past surgical history Family History Family History Father Drug abuse Mother Depression Social History Social History Social History: The patient is single. The patient was back and forth between his mom and dad's house. The patient is disabled due to his mental illness. The patient does not smoke is lifelong nonsmoker. The patient is a full code. He does not have any children. The patient has a history of alcohol abuse. He has a history of polysubstance abuse. The patient last drank approximately 1 week ago. Smoking packs per day: 1 Smoking cigarettes per day: 20.0 Smoking status: Current every day smoker Alcohol intake: unknown Substance use: unknown Gender identity (if verbalized by the patient): Male Spiritual care concerns: No Comments At time of signature, I have reviewed and agree with nursing past medical, surgical, social and family history unless otherwise noted. Please see nursing chart for further information. There is no relevant family history pertinent
[2021-06-03 19:09] VITALS: BP 116/93; PULSE 121; RESP 18; TEMP 36.1; O2SAT 97
== END 2021-06-03 19:16 | disposition home or self-care (01) ==
PROVIDERS: Emergency Provider Nurse Practitioner
DX: F41.9 Anxiety disorder, unspecified (principal); F31.9 Bipolar disorder, unspecified; F20.9 Schizophrenia, unspecified
CPT/HCPCS: 99211; G0463

== ENCOUNTER 2021-06-28 14:02 | Emergency (ER) | payer OTHER, SELFPAY ==
[2021-06-28 14:05] VITALS: BP 112/66; PULSE 81; RESP 16; TEMP 37; O2SAT 100
--- NOTE | 2021-06-28 14:21 | ED.WOUNDLAC ---
HPI - Wound/Laceration General Chief Complaint: Wound/Laceration Stated Complaint: left thumb lac Time Seen by Provider: 06/28/21 14:40 Source: patient and RN notes reviewed Mode of arrival: ambulatory Limitations: no limitations History of Present Illness HPI narrative: 25-year-old male presents concern for injury to the first digit of his left hand. He reports he cut himself with scissors just prior to arrival. He denies decree sensation, strength, range of motion in the hand. In a separate complaint he reports nasal congestion. Reports he is taken [id number] medications without relief. He denies fever, chills, body aches, sweats, cough, shortness of breath. Related Data Home Medications Medication Instructions Recorded Confirmed carbamazepine 200 mg PO BID 08/10/20 08/10/20 gabapentin 300 mg PO TID 08/10/20 08/10/20 olanzapine 15 mg PO DAILY 08/10/20 08/10/20 amitriptyline 06/28/21 clonazepam 06/28/21 trazodone 06/28/21 Allergies Allergy/AdvReac Type Severity Reaction Status Date / Time No Known Allergies Allergy Unknown Verified 06/28/21 14:24 Review of Systems Review of Systems: CONSTITUTIONAL: Denies malaise, chills, sweats, or fever. HEENT: Nasal congestion, rhinorrhea. Denies sore throat, sinus pain, ear pain. SKIN: Reports injury to the first digit of left hand MUSCULOSKELETAL: Denies muscle skeletal pain NEUROLOGIC: Denies numbness, weakness All systems reviewed & are unremarkable except as noted in HPI and below PMFSH Past Medical History Medical History (Updated 06/28/21 @ 14:59 by Parul Toledo NP) Alcoholism Anxiety Bipolar 1 disorder Polysubstance abuse Schizoaffective disorder Surgical History Surgical History History of facial surgery Jaw reconstruction No pertinent past surgical history Family History Family History Father Drug abuse Mother Depression Social History Social History Social History: The patient is single. The patient was back and forth between his mom and dad's house. The patient is disabled due to his mental illness. The patient does not smoke is lifelong nonsmoker. The patient is a full code. He does not have any children. The patient has a history of alcohol abuse. He has a history of polysubstance abuse. The patient last drank approximately 1 week ago. Smoking packs per day: 1 Smoking cigarettes per day: 20.0 Smoking status: Current every day smoker Alcohol intake: unknown Substance use: unknown Gender identity (if verbalized by the patient): Male Spiritual care concerns: No Comments At time of signature, agree with nursing past medical, surgical, social and family history. There is no relevant family history pertinent to the presenting complaint Exam Narrative: GENERAL: Well-appearing, well-nourished, and in no acute distress. HEAD: Normocephalic EYES: PERRLA, conjunctivae clear NECK: Supple. CHEST: Speaks in full sentences. No respiratory distress. HEART: Regular rate and rhythm. Normal and equal peripheral pulses. EXTREMITIES: First digit of left hand has normal strength and sensation. 5/5 strength with digit flexion, extension. Range of motion normal. Normal thumb opposition. Good capillary refill and radial pulse. Distal capillary refill less than 3 seconds. SKIN: Warn, dry, intact, pink. Skin avulsion of the first digit on the left hand approximately 2-1/2 cm x 0.5 cm NEURO: Alert and oriented x3. PSYCH: Normal mood and affect Course Course Emergency Course: Hemostasis achieved using Surgicel and pressure. Anticipatory guidance given. Patient is aware of diagnosis, understands and agrees to treatment plan. Anticipatory guidance given. Patient agrees to follow-up as directed and is aware of reasons to seek care at the emergency depar
== END 2021-06-28 16:42 | disposition home or self-care (01) ==
PROVIDERS: Emergency Provider Nurse Practitioner
DX: S61.002A Unspecified open wound of left thumb without damage to nail, initial encounter (principal); W27.2XXA Contact with scissors, initial encounter; F17.210 Nicotine dependence, cigarettes, uncomplicated; F20.9 Schizophrenia, unspecified; F31.9 Bipolar disorder, unspecified
CPT/HCPCS: 12001; 99212; G0463

== ENCOUNTER 2022-10-18 10:14 | Emergency (ER) | payer OTHER, SELFPAY ==
--- NOTE | 2022-10-18 10:22 | ED.URI ---
HPI - URI/Sore Throat General Chief Complaint: Unspecified Stated Complaint: CAN'T SLEEP/SOB Time Seen by Provider: 10/18/22 10:22 Source: patient and RN notes reviewed History of Present Illness HPI Narrative: Patient is a 27-year-old male who presents to urgent care with complaints of insomnia for approximately 2-3 days. Patient is bipolar and has schizophrenic disorder. Patient states that he has been out of his clonazepam for the last couple days and does not have an appointment with his psychologist until tomorrow afternoon. Patient has consistently filled his psych medications with his last fill of 90 day clonazepam and August. Patient does to appear very anxious and slightly manic. Complaining of some shortness of breath and high anxiety. Patient does not have thoughts of harming himself or others. No other acute complaints. Patient aware of the plan of care. Some parts of this dictation were generated by voice recognition software and may contain typographical and/or grammatical inaccuracies. Related Data Home Medications Medication Instructions Recorded Confirmed carbamazepine 200 mg 200 mg PO BID 08/10/20 10/18/22 tablet,extended release,12 hr gabapentin 300 mg capsule 300 mg PO TID 08/10/20 10/18/22 olanzapine 15 mg tablet 15 mg PO DAILY 08/10/20 10/18/22 amitriptyline 25 mg tablet 25 mg PO TID 06/28/21 10/18/22 clonazepam 0.5 mg tablet 0.5 mg PO TID 06/28/21 10/18/22 naloxone 4 mg/actuation nasal spray 4 mg intranasal PRN PRN Opioid 10/18/22 10/18/22 Reversal Allergies Allergy/AdvReac Type Severity Reaction Status Date / Time No Known Allergies Allergy Unknown Verified 10/18/22 10:18 Review of Systems Review of Systems: CONSTITUTIONAL: Denies fever, chills, or sweats. EYES: Denies visual changes, redness, or discharge. ENT: Denies rhinorrhea, congestion, sore throat, or otalgia. CARDIOVASCULAR: Reports palpitations and chest tightness RESPIRATORY: Denies cough or dyspnea. GASTROINTESTINAL: Denies abdominal pain, nausea, vomiting, or diarrhea. GENITOURINARY: Denies dysuria or hematuria. SKIN: Denies rash or itching. MUSCULOSKELETAL: Denies back pain, joint pain, or myalgia. NEUROLOGIC: Denies headache, numbness, or weakness. PYSCH: reports of increased anxiety and stress All other systems reviewed are negative, except as documented in HPI. [facility] Past Medical History Medical History (Updated 10/18/22 @ 10:31 by MELISSA Walker) Alcoholism Anxiety Bipolar 1 disorder Polysubstance abuse Schizoaffective disorder Surgical History Surgical History History of facial surgery Jaw reconstruction No pertinent past surgical history Family History Family History Father Drug abuse Mother Depression Social History Social History Social History: The patient is single. The patient was back and forth between his mom and dad's house. The patient is disabled due to his mental illness. The patient does not smoke is lifelong nonsmoker. The patient is a full code. He does not have any children. The patient has a history of alcohol abuse. He has a history of polysubstance abuse. The patient last drank approximately 1 week ago. Smoking packs per day: 1 Smoking cigarettes per day: 20.0 Smoking status: Current every day smoker Alcohol intake: unknown Substance use: unknown Gender identity (if verbalized by the patient): Male Spiritual care concerns: No Comments At the time of my signature, I reviewed and agree with the nursing past medical, surgical, social, and family history. There is no relevant family history pertinent to the patient complaint. Exam Narrative: GENERAL: This is a well-nourished, well-developed patient. Very anxious, flat affect HEAD: normocephalic, atraumatic. EYES: P
[2022-10-18 10:23] VITALS: BP 104/86; PULSE 111; RESP 16; TEMP 37.3; O2SAT 98
== END 2022-10-18 10:35 | disposition home or self-care (01) ==
PROVIDERS: Emergency Provider Nurse Practitioner Family
DX: G47.00 Insomnia, unspecified (principal); F31.9 Bipolar disorder, unspecified; F25.0 Schizoaffective disorder, bipolar type; F17.210 Nicotine dependence, cigarettes, uncomplicated
CPT/HCPCS: 99213; G0463

== ENCOUNTER 2022-11-29 13:20 | Emergency (ER) | payer OTHER, SELFPAY ==
--- NOTE | 2022-11-29 13:21 | ED.NAVMDI ---
HPI - Nausea/Vomiting/Diarrhea General Chief complaint: Nausea/Vomiting/Diarrhea Stated complaint: STOMACH PAIN/VOMITING/NAUSEA Time Seen by Provider: 11/29/22 13:21 Source: patient and RN notes reviewed History of Present Illness HPI Narrative: Patient is a 27-year-old male who presents to urgent care with complaints of nausea, vomiting, abdominal discomfort. Patient has severe anxiety and has taken his medications today. Patient states that it started 3 days ago and he has been unable to keep down anything this morning with his last episode of vomiting after eating an apple and drinking a protein shake. Patient denies any chronic abdominal issues. Denies any urinary symptoms. No other acute complaints. Patient is visibly anxious. Patient aware of the plan of care. Some parts of this dictation were generated by voice recognition software and may contain typographical and/or grammatical inaccuracies. Related Data Home Medications Medication Instructions Recorded Confirmed carbamazepine 200 mg 200 mg PO BID 08/10/20 11/29/22 tablet,extended release,12 hr gabapentin 300 mg capsule 300 mg PO TID 08/10/20 11/29/22 olanzapine 15 mg tablet 15 mg PO DAILY 08/10/20 11/29/22 clonazepam 0.5 mg tablet 0.5 mg PO TID 06/28/21 11/29/22 naloxone 4 mg/actuation nasal spray 4 mg intranasal PRN PRN Opioid 10/18/22 11/29/22 Reversal amitriptyline 25 mg tablet 25 mg PO TID 11/29/22 11/29/22 Allergies Allergy/AdvReac Type Severity Reaction Status Date / Time No Known Allergies Allergy Unknown Verified 11/29/22 13:22 Review of Systems Review of Systems: CONSTITUTIONAL: Denies fever, chills, or sweats. EYES: Denies visual changes, redness, or discharge. ENT: Denies rhinorrhea, congestion, sore throat, or otalgia. CARDIOVASCULAR: Denies chest pain, palpitations, or edema. RESPIRATORY: Denies cough or dyspnea. GASTROINTESTINAL: Reports without abdominal discomfort, nausea and vomiting GENITOURINARY: Denies dysuria or hematuria. SKIN: Denies rash or itching. MUSCULOSKELETAL: Denies back pain, joint pain, or myalgia. NEUROLOGIC: Denies headache, numbness, or weakness. PSYCHIATRIC: Chronic anxiety All other systems reviewed are negative, except as documented in HPI. [facility] Past Medical History Medical History (Updated 11/29/22 @ 13:31 by DASIA WalkerP) Alcoholism Anxiety Bipolar 1 disorder Polysubstance abuse Schizoaffective disorder Surgical History Surgical History History of facial surgery Jaw reconstruction No pertinent past surgical history Family History Family History Father Drug abuse Mother Depression Social History Social History Social History: The patient is single. The patient was back and forth between his mom and dad's house. The patient is disabled due to his mental illness. The patient does not smoke is lifelong nonsmoker. The patient is a full code. He does not have any children. The patient has a history of alcohol abuse. He has a history of polysubstance abuse. The patient last drank approximately 1 week ago. Smoking packs per day: 1 Smoking cigarettes per day: 20.0 Smoking status: Current every day smoker Alcohol intake: unknown Substance use: unknown Gender identity (if verbalized by the patient): Male Spiritual care concerns: No Comments At the time of my signature, I reviewed and agree with the nursing past medical, surgical, social, and family history. There is no relevant family history pertinent to the patient complaint. Exam Narrative: GENERAL: This is a well-nourished, well-developed patient, appears to be under extreme anxiety/stress HEAD: normocephalic, atraumatic. EYES: PERRL. Sclera clear/white. Vision is grossly intact. EARS: External ears normal NOSE: External
[2022-11-29 13:25] VITALS: BP 134/79; PULSE 115; RESP 20; TEMP 36.8; O2SAT 100
== END 2022-11-29 13:35 | disposition left against medical advice (07) ==
PROVIDERS: Emergency Provider Nurse Practitioner Family
DX: R10.30 Lower abdominal pain, unspecified (principal); F41.9 Anxiety disorder, unspecified; R11.2 Nausea with vomiting, unspecified; F17.210 Nicotine dependence, cigarettes, uncomplicated; F31.9 Bipolar disorder, unspecified; F25.9 Schizoaffective disorder, unspecified
CPT/HCPCS: 99213; G0463

== ENCOUNTER 2022-11-29 17:47 | Emergency (ER) | payer OTHER, SELFPAY ==
[2022-11-29] VITALS (7 sets, daily range): BP systolic 99–142; BP diastolic 60–89; PULSE 69–101; RESP 14–18; TEMP 36.3–36.8; O2SAT 95–100
--- NOTE | ~2022-11-29 | CT_ITS ---
EXAMINATION: CT abdomen pelvis w con DATE: 11/29/2022 19:39 INDICATION: abdominal pain TECHNIQUE: Computed tomography (CT) of the abdomen and pelvis was performed with 100 mL Omnipaque-350 intravenous contrast. Automated exposure control and iterative reconstruction technique were employe d. The dose-length product was 437.82 mGy-cm. COMPARISON: 12/27/2017. FINDINGS: Considerable motion artifact affecting the large and small bowel in the mid and lower abdomen. Lower thorax: Unremarkable Liver: Normal. Biliary/Gallbladder: Gallbladder is normal. No bile duct dilation. Pancreas: No mass or duct dilation. Spleen: Normal. Adrenals:No mass. Kidneys: No mass, stone, or hydronephrosis. GI tract: No small or large bowel dilation. Appendix not confidently visualized. However, no acute in flammatory process detected in the right lower quadrant. Mesentery/Peritoneum: No ascites, mass, or free air. Retroperitoneum: No mass. Pelvis: Pelvic organs are within normal limits. Soft Tissues: Soft tissues and body wall unremarkable. Bones: IMPRESSION: No acute abdominopelvic process detected. Reviewed, dictated and finalized at location K.
[2022-11-29 19:03] LABS: Basophils Percent Auto 0.2 % (0.2-1.2); Eosinophils Percent Auto 0.1 % (0-4.4); Hematocrit 45.3 % (42.0-52.0); Immature Granulocyte Absolute 0.08 K/mm3 (0.00-0.031); Immature Granulocyte Percent A 0.6 % (0-0.5); Lymphocytes Absolute Auto 0.94 K/mm3 (0.9-3.2); Lymphocytes Percent Auto 6.9 % (18.3-44.2); Mean Corpuscular HGB Conc 33.1 g/dl (32-36); Mean Corpuscular Hemoglobin 28.3 pg (26-34); Mean Corpuscular Volume 85.5 fl (80-100); Mean Platelet Volume 10.5 fl (7.4-10.4); Monocytes Absolute Auto 0.5 K/mm3 (0.1-0.6); Monocytes Percent Auto 3.6 % (2.6-8.5); Neutrophils Absolute Auto 12.2 K/mm3 (1.3-6.7); Neutrophils Percent Auto 88.6 % (45.5-73.1); Platelet Count Result 295 k/mm3 (150-375); Red Cell Distribution Width 14.2 % (11.5-14.5); White Blood Count 13.7 K/mm3 (4.5-10.0)
[2022-11-29 19:04] LABS: Appearance Urine Clear (Clear); Bacteria Urine None Seen /hpf; Bilirubin Urine Negative (Negative); Blood Urine Negative (Negative); Color Urine Dark Yellow (Yellow); Glucose Urine UA Negative (Negative); Ketones Urine 1+ mg/dL (Negative); Leukocyte Esterase Ur Negative LEU/UL (Negative); Nitrate Urine Negative (Negative); Non Pathogenic Casts 0-2; Protein Urine Trace mg/dL (Negative); RBC Urine 0-2 /hpf (0-2); Squamous Epithelial Cell Urine None seen /hpf (Few); Urobilinogen Urine 0.2 mg/dL (<2.0); WBC Urine 0-5 /hpf; pH Urine 6.5 (5.0-9.0)
[2022-11-29 19:13] LABS: Alanine Aminotransferase 22 U/L (6-50); Albumin Level 5.3 g/dL (3.5-5.1); Alkaline Phosphatase 80 U/L (38-126); Anion Gap 15 mmol/L (8-16); Aspartate Amino Transferase 24 U/L (17-59); Bilirubin,Total 0.7 mg/dL (0.2-1.3); Blood Urea Nitrogen 21 mg/dL (9-20); Calcium 10.1 mg/dL (8.4-10.2); Carbon Dioxide 26 mmol/L (22-30); Chloride 98 mmol/L (98-107); Estimated CRCL calculation 141 ml/min; Estimated Glomerular Filt Rate > 60; Glucose 118 mg/dL (65-110); Lipase 81 U/L (23-300); Sodium 139 mmol/L (137-145)
[2022-11-29 19:14] LABS: Add Urine Microscopic? YES; Specific Grav Ur 1.038 (1.001-1.035)
[2022-11-29] MEDS: SODIUM CHLORIDE 0.9% IV 1,000 ML 999 ML IV CONT ×2 (19:39→19:43)
[2022-11-29] MEDS: PROCHLORPERAZINE EDISYLATE 10 MG/2 ML VIAL IV PUSH (19:41)
--- NOTE | 2022-11-29 19:53 | ED.GENADULT ---
HPI - General Adult General Chief complaint: Nausea/Vomiting/Diarrhea Stated complaint: N/V Time Seen by Provider: 11/29/22 19:10 History of Present Illness HPI narrative: Patient 27-year-old gentleman who presents emergency department with chief complaint of nausea and vomiting and abdominal pain. Patient reports for the last 3 days he has had multiple episodes of nausea and vomiting patient reports he is unable to keep anything down the patient denies diarrhea and reports his last bowel movement was today patient reports he has pain throughout the abdomen reports aching-like pain. Related Data Home Medications Medication Instructions Recorded Confirmed carbamazepine 200 mg 200 mg PO BID 08/10/20 11/29/22 tablet,extended release,12 hr gabapentin 300 mg capsule 300 mg PO TID 08/10/20 11/29/22 olanzapine 15 mg tablet 15 mg PO DAILY 08/10/20 11/29/22 clonazepam 0.5 mg tablet 0.5 mg PO TID 06/28/21 11/29/22 naloxone 4 mg/actuation nasal spray 4 mg intranasal PRN PRN Opioid 10/18/22 11/29/22 Reversal amitriptyline 25 mg tablet 25 mg PO TID 11/29/22 11/29/22 Allergies Allergy/AdvReac Type Severity Reaction Status Date / Time No Known Allergies Allergy Unknown Verified 11/29/22 13:22 Review of Systems Review of Systems: A 10 system review of systems was completed on the patient and is negative except for what is stated in the HPI. Nursing and ancillary documentation was reviewed. [facility] Past Medical History Medical History Alcoholism Anxiety Bipolar 1 disorder Polysubstance abuse Schizoaffective disorder Surgical History Surgical History History of facial surgery Jaw reconstruction No pertinent past surgical history Family History Family History Father Drug abuse Mother Depression Social History Social History Social History: The patient is single. The patient was back and forth between his mom and dad's house. The patient is disabled due to his mental illness. The patient does not smoke is lifelong nonsmoker. The patient is a full code. He does not have any children. The patient has a history of alcohol abuse. He has a history of polysubstance abuse. The patient last drank approximately 1 week ago. Smoking packs per day: 1 Smoking cigarettes per day: 20.0 Smoking status: Current every day smoker Alcohol intake: unknown Substance use: unknown Gender identity (if verbalized by the patient): Male Spiritual care concerns: No Exam Narrative: GENERAL: Well-appearing, well-nourished, and in no acute distress. HEAD: Normocephalic, atraumatic. EYES: PERRLA and EOMI. ENT: Nares clear, no rhinorrhea or epistaxis. Dry mucous membranes. NECK: Supple. CHEST: Clear to auscultation. No respiratory distress. HEART: Regular rate and rhythm. No murmur heard. Normal peripheral pulses. ABDOMEN: Soft, diffusely tender to palpation, nondistended, normal active bowel sounds. EXTREMITIES: Normal range of motion. No edema. SKIN: Warm, dry, no rash. NEURO: No focal deficits. Alert and oriented x3. PSYCH: Normal mood and affect. Course Vital Signs Vital signs: Vital Signs Temperature 36.6 C 11/29/22 17:48 Pulse Rate 81 11/29/22 17:48 Respiratory Rate 18 11/29/22 17:48 Blood Pressure 117/78 11/29/22 17:48 Pulse Oximetry 95 11/29/22 17:48 Temperature 36.3 C L 11/29/22 19:20 Pulse Rate 96 11/29/22 20:39 Respiratory Rate 15 11/29/22 19:20 Blood Pressure 125/81 11/29/22 20:39 Pulse Oximetry 100 11/29/22 19:20 Medical Decision Making Vital Signs Vital Signs: Vital Signs Temperature 36.6 C 11/29/22 17:48 Pulse Rate 81 11/29/22 17:48 Respiratory Rate 18 11/29/22 17:48 Blood Pressu
[2022-11-29] MEDS: KETOROLAC 30 MG/ML VIAL (*BKC) IV PUSH (21:12)
== END 2022-11-29 22:38 | disposition home or self-care (01) ==
PROVIDERS: Emergency Medicine; Emergency Provider Emergency Medicine
DX: R11.2 Nausea with vomiting, unspecified (principal); R10.9 Unspecified abdominal pain; F17.210 Nicotine dependence, cigarettes, uncomplicated; Z79.899 Other long term (current) drug therapy
CPT/HCPCS: 36415; 74177; 80053; 81001; 83690; 85025; 85055; 96361; 96374; 96375; 99284; J0780; J1885; J7030; Q9967

== ENCOUNTER 2023-04-26 16:24 | Emergency (ER) | payer OTHER, SELFPAY ==
[2023-04-26 16:40] VITALS: BP 113/86; PULSE 92; RESP 16; TEMP 36.6; O2SAT 100
--- NOTE | 2023-04-26 16:41 | ED.GENADULT ---
HPI - General Adult General Chief complaint: Upper Respiratory Infection Stated complaint: Bodyache Time Seen by Provider: 04/26/23 16:41 Source: patient, RN notes reviewed and old records reviewed Mode of arrival: ambulatory Limitations: no limitations History of Present Illness HPI narrative: 27-year-old male presents to the [facility] with complaints of body aches for new unknown amount of time. Patient is a poor historian. Patient reporting that he is occasionally short of breath has been going on for approximately 4 days. Offered a chest x-ray, patient declined stating ?I just need my meds refilled. Patient requesting his Klonopin, explained to patient that we cannot write for this medication. Patient walked out of exam room, left clinic Patient has poor hygiene, appears very anxious. Has a history of bipolar disorder Onset (ago): day(s) (3-4) Treatments prior to arrival: none Related Data Home Medications Medication Instructions Recorded Confirmed clonazepam 0.5 mg tablet 0.5 mg PO TID 06/28/21 04/26/23 amitriptyline 25 mg tablet 25 mg PO TID 11/29/22 04/26/23 Allergies Allergy/AdvReac Type Severity Reaction Status Date / Time No Known Allergies Allergy Unknown Verified 04/26/23 16:35 Review of Systems Review of Systems: All systems reviewed & are unremarkable except as noted in HPI and below Constitutional: Constitutional: Reports as per HPI and Reports body ache(s) Eyes: Eyes: Reports no additional eye complaints ENT: Reports system reviewed and no additional complaints, except as documented Cardiovascular: Cardiovascular: Reports no additional cardiovascular complaints, Denies chest pain and Denies dyspnea Respiratory: Respiratory: Reports as per HPI, Reports no additional respiratory complaints, Denies chest congestion, Denies cough and Reports dyspnea Gastrointestinal: Gastrointestinal: Reports no additional gastrointestinal complaints, Denies abdominal pain, Denies nausea and Denies vomiting Musculoskeletal: Musculoskeletal: Reports no additional musculoskeletal complaints Integumentary/Breasts: Skin/Breast: Reports system reviewed and no additional complaints, except as docu Neurologic: Reports system reviewed and no additional complaints, except as documented Psychiatric: Psychiatric: Reports no additional psychiatric complaints Allergic/Immunologic: Allergic/Immunologic: Reports no additional allergic/immunologic complaints PMFSH Past Medical History Medical History Alcoholism Anxiety Bipolar 1 disorder Polysubstance abuse Schizoaffective disorder Surgical History Surgical History History of facial surgery Jaw reconstruction No pertinent past surgical history Family History Family History Father Drug abuse Mother Depression Social History Social History Social History: The patient is single. The patient was back and forth between his mom and dad's house. The patient is disabled due to his mental illness. The patient does not smoke is lifelong nonsmoker. The patient is a full code. He does not have any children. The patient has a history of alcohol abuse. He has a history of polysubstance abuse. The patient last drank approximately 1 week ago. Smoking packs per day: 1 Smoking cigarettes per day: 20.0 Smoking status: Current every day smoker Alcohol intake: unknown Substance use: unknown Gender identity (if verbalized by the patient): Male Spiritual care concerns: No Comments At the time of my signature, I reviewed and agree with the nursing past medical, surgical, social, and family history. There is no relevant family history pertinent to the patient complaint. Exam Const: General: cooperative, no acute distress, well developed, nasreen
== END 2023-04-26 17:05 | disposition left against medical advice (07) ==
PROVIDERS: Emergency Provider Nurse Practitioner
DX: R52 Pain, unspecified (principal); Z20.822 Contact with and (suspected) exposure to COVID-19; F41.9 Anxiety disorder, unspecified; F17.210 Nicotine dependence, cigarettes, uncomplicated
CPT/HCPCS: 87426; 87804; 99213; G0463

== ENCOUNTER 2023-11-07 19:52 | Inpatient (IN) | payer OTHER, SELFPAY ==
[2023-11-07] VITALS (15 sets, daily range): BP systolic 87–109; BP diastolic 56–82; PULSE 69–87; RESP 10–21; TEMP 36.6–36.8; O2SAT 85–98
--- NOTE | ~2023-11-07 | CT_ITS ---
CT brain wo con Ordering provider: Brent Borges MD History: 28 years Male with . altered mental status . Comparison: None. Technique: CT of the head without contrast. Radiation reduction technique utilized. DLP is 681 mGy-cm. FINDINGS: BRAIN PARENCHYMA AND CSF SPACES: No midline shift, mass effect or hemorrhage. The brain parenchyma a nd CSF spaces are otherwise normal. VISUALIZED PARANASAL SINUSES: Left maxillary sinus disease. MASTOIDS: Well aerated. BONES: The bones appear intact. SOFT TISSUES: Visualized nasopharynx is normal. Superficial soft tissues are normal. IMPRESSION: No acute intracranial findings. Reviewed, dictated and finalized at location A.
--- NOTE | ~2023-11-07 | US_ITS ---
EXAMINATION: US renal BI DATE: 11/08/2023 15:09 INDICATION: Acute renal failure. TECHNIQUE: Multiple ultrasound grayscale images of the kidneys were obtained. COMPARISON: CT abdomen and pelvis 11/07/23 FINDINGS: The right kidney measures 11.2 x 4.7 x 6.1 cm. The left kidney measures 14.0 x 5.5 x 4.6 cm. The kidn eys demonstrate normal parenchymal echogenicity. There is no hydronephrosis. There is bilateral perin ephric edema. The bladder is normal. There is echogenic urine in the bladder. IMPRESSION: 1. Normal kidney sizes. No hydronephrosis. Reviewed, dictated and finalized at location A.
--- NOTE | ~2023-11-07 | CT_ITS ---
CT abdomen pelvis wo con Ordering provider: Brent Borges MD History: 28 years Male with . abdominal pain . Comparison: November 29 2022 Technique: CT abdomen and pelvis without IV and without oral contrast. Automated exposure control and iterative reconstruction technique were employed. The dose-length product was 500.61 mGy-cm. Findings: VISUALIZED LOWER CHEST: Pneumonia in the left, lingula and right lower lobe more on the left. UPPER ABDOMINAL ORGANS: Liver: Normal. Gallbladder: Normal. Spleen: Normal. Stomach/duodenum: Normal. Pancreas: Normal. Adrenals: Normal. Kidneys: Normal. PELVIC ORGANS: The bladder is normal. BOWEL AND MESENTERY: Colon: No evidence of diverticulitis. No evidence of appendicitis. Small Bowel: Normal. No obstruction. Peritoneum/mesentery: No free air or free fluid. No mesenteric lymphadenopathy. RETROPERITONEUM: Normal aorta. No retroperitoneal lymphadenopathy. MUSCULOSKELETAL: Superficial soft tissues: The superficial soft tissues are normal. Bones: Normal spine. IMPRESSION: 1. No evidence of appendicitis, diverticulitis or intestinal obstruction. 2. Bilateral lower lobe pneumonia more on the left side. Reviewed, dictated and finalized at location A.
--- NOTE | ~2023-11-07 | XR_ITS ---
Portable chest x-ray Comparison: 11/07/2023 Clinical History: Pneumonia Findings: There is extensive patchy consolidation of the left lung, especially left lower lobe. Righ t lung clear. Cardiomediastinal silhouette is stable. Bones and soft tissues are unremarkable. Impression: Patchy pneumonia throughout the left lung, especially left lower lobe. Right lung clear. Reviewed, dictated and finalized at location . Impression: Patchy pneumonia throughout the left lung, especially left lower lobe. Right lung clear.
--- NOTE | ~2023-11-07 | XR_ITS ---
XR chest 1V portable Ordering provider: Brent Borges MD History: 28 years Male with . weakness . Comparison: May 06, 2021 FINDINGS: MEDIASTINUM: The cardiac silhouette is not enlarged. LUNGS: No effusions or pneumothorax. Multiple patchy opacities seen in the left lung upper and lower lobe and to a lesser extent in the right upper lobe suggestive of pneumonia. Follow-up advised. OTHER: No free air under the diaphragm. IMPRESSION: Left upper and lower lobe pneumonia. Atypical and viral pneumonia should be considered. Reviewed, dictated and finalized at location A. IMPRESSION: Left upper and lower lobe pneumonia. Atypical and viral pneumonia should be con sidered.
--- NOTE | 2023-11-07 19:57 | ECG_ITS ---
Test Date: 2023-11-07 20:17:35 Measurements Intervals [place] Rate: 73 P: 262 MD: 158 QRS: 100 QRSD: 87 T: 55 QT: 337 QTc: 373 Interpretive Statements SINUS RHYTHM WITHIN NORMAL LIMITS No previous ECG available for comparison Electronically Signed On 11-08-2023 07:14:01 CDT by Ousmane Talamantes M.D.
--- NOTE | 2023-11-07 20:00 | ED.GENADULT ---
HPI - General Adult General Chief complaint: Altered Mental Status Stated complaint: drug use Time Seen by Provider: 11/07/23 19:56 History of Present Illness HPI narrative: Patient 28-year-old gentleman who presents emergency department with chief complaint of weakness. Patient was on the bike trail trying to go from [facility] to [facility] feel patient states that he got very weak and had a difficult time walking and called EMS when EMS arrived they thought he was drowsy and gave him Narcan the patient reports that he feels weak all over Related Data Home Medications Medication Instructions Recorded Confirmed clonazepam 0.5 mg tablet 0.5 mg PO TID 06/28/21 11/08/23 gabapentin 300 mg capsule 300 mg PO TID 11/08/23 11/08/23 olanzapine 15 mg tablet 15 mg PO DAILY 11/08/23 11/08/23 trazodone 50 mg tablet 50 mg PO DAILY 11/08/23 11/08/23 Allergies Allergy/AdvReac Type Severity Reaction Status Date / Time No Known Allergies Allergy Unknown Verified 04/26/23 16:35 Review of Systems Review of Systems: A 10 system review of systems was completed on the patient and is negative except for what is stated in the HPI. Nursing and ancillary documentation was reviewed. [facility] Past Medical History Medical History (Updated 11/08/23 @ 07:10 by Brent Borges MD) Alcoholism Anxiety Bipolar 1 disorder Heroin abuse Methamphetamine abuse Polysubstance abuse Schizoaffective disorder Surgical History Surgical History (Updated 11/08/23 @ 00:50 by Na Malone DO) History of facial surgery Jaw reconstruction Family History Family History Father Drug abuse Mother Depression Social History Social History (Updated 11/08/23 @ 00:57 by Na Malone DO) Social History: The patient is single. The patient was back and forth between his mom and dad's house. The patient is disabled due to his mental illness. He does not have any children. The patient has a history of alcohol abuse. He has a history of polysubstance abuse. Code status: Full code With surrogate decision maker: Parents Smoking packs per day: 1 Smoking cigarettes per day: 20.0 Smoking status: Never smoker Alcohol intake: current Substance use: current Substance use type: amphetamines Gender identity (if verbalized by the patient): Male Spiritual care concerns: No Exam Narrative: GENERAL: Well-appearing, well-nourished, and in no acute distress. HEAD: Normocephalic, atraumatic. EYES: PERRLA and EOMI. ENT: Nares clear, no rhinorrhea or epistaxis. Mucous membranes moist. NECK: Supple. CHEST: Clear to auscultation. No respiratory distress. HEART: Regular rate and rhythm. No murmur heard. Normal peripheral pulses. ABDOMEN: Soft, nontender, nondistended, normal active bowel sounds. EXTREMITIES: Normal range of motion. No edema. SKIN: Warm, diaphoretic, no rash. NEURO: No focal deficits. Alert and oriented x3. PSYCH: Normal mood and affect. Course Vital Signs Vital signs: Vital Signs Temperature 36.6 C 11/07/23 19:54 Pulse Rate 79 11/07/23 19:54 Respiratory Rate 20 11/07/23 19:54 Blood Pressure 89/74 L 11/07/23 19:54 Pulse Oximetry 86 L 11/07/23 19:54 Oxygen Delivery Room Air 11/07/23 19:54 Oxygen Flow Rate 3 11/07/23 19:54 Temperature 36.3 C L 11/08/23 06:11 Pulse Rate 94 11/08/23 06:11 Respiratory Rate 18 11/08/23 06:11 Blood Pressure 101/64 11/08/23 06:11 Pulse Oximetry 98 11/08/23 06:11 Oxygen Delivery Nasal Cannula 11/08/23 04:00 Oxygen Flow Rate 2 11/08/23 04:00 Medical Decision Making Vital Signs Vital Signs: Vital Signs Temperature 36.6 C 11/07/23 19:54 Pulse Rate 79 11/07/23 19:54 Respiratory Rate 20 11/07/23 19:54 Blood Pressure 89/74 L 11/07/23 19:54 Pulse Oximetry 86 L 11/07/23 19:54 Oxygen Delivery Room Air 11/07/23 19:54 Oxy
[2023-11-07 21:00] LABS: Basophils Percent Auto 0.2 % (0.2-1.2); Eosinophils Absolute Auto 3.6 K/mm3 (0-0.3); Eosinophils Percent Auto 19.6 % (0-4.4); Hematocrit 52.1 % (42.0-52.0); Hemoglobin 16.6 g/dL (14.0-18.0); Immature Granulocyte Absolute 0.07 K/mm3 (0.00-0.031); Immature Granulocyte Percent A 0.4 % (0-0.5); Lymphocytes Absolute Auto 0.65 K/mm3 (0.9-3.2); Lymphocytes Percent Auto 3.5 % (18.3-44.2); Mean Corpuscular HGB Conc 31.9 g/dl (32-36); Mean Corpuscular Hemoglobin 29.3 pg (26-34); Mean Corpuscular Volume 91.9 fl (80-100); Mean Platelet Volume 9.2 fl (7.4-10.4); Monocytes Absolute Auto 0.9 K/mm3 (0.1-0.6); Neutrophils Absolute Auto 13.3 K/mm3 (1.3-6.7); Neutrophils Percent Auto 71.3 % (45.5-73.1); Platelet Count Result 387 k/mm3 (150-375); Red Blood Count 5.67 M/mm3 (4.6-6.20); Red Cell Distribution Width 13.4 % (11.5-14.5); White Blood Count 18.6 K/mm3 (4.5-10.0)
[2023-11-07] MEDS: SODIUM CHLORIDE 0.9% IV 1,000 ML 999 ML IV CONT ×3 (21:02→21:45)
--- NOTE | 2023-11-07 21:07 | ECG_ITS ---
Test Date: 2023-11-07 21:10:25 Measurements Intervals [place] Rate: 67 P: 0 AK: 0 QRS: 101 QRSD: 94 T: 50 QT: 361 QTc: 382 Interpretive Statements ECTOPIC ATRIAL RHYTHM WITH PACS RIGHT AXIS DEVIATION [QRS AXIS > 100] ABNORMAL ECG Compared to ECG 11/07/2023 20:17:35 ECTOPIC, NON SINUS ATRIAL RHYTHM REPLACES SINUS RHYTHM Electronically Signed On 11-08-2023 07:16:56 CDT by Ousmane Talamantes M.D.
[2023-11-07 21:15] LABS: Ethanol < 10 mg/dL (<10)
[2023-11-07 21:16] LABS: Lactic Acid Reflex 6.1 mmol/L (0.7-2.0)
[2023-11-07 21:17] LABS: Albumin Level 5.2 g/dL (3.5-5.1); Alkaline Phosphatase 69 U/L (38-126); Anion Gap 20 mmol/L (4-12); Bilirubin,Total 0.7 mg/dL (0.2-1.3); Blood Urea Nitrogen 29 mg/dL (9-20); Calcium 7.7 mg/dL (8.4-10.2); Carbon Dioxide 22 mmol/L (22-30); Chloride 98 mmol/L (98-107); Estimated CRCL calculation 34 ml/min; Estimated Glomerular Filt Rate 26; Glucose 97 mg/dL (65-110); Magnesium 2.1 mg/dL (1.6-2.3); Potassium 7.2 mmol/L (3.4-5.0); Sodium 140 mmol/L (137-145)
[2023-11-07 21:18] LABS: Alanine Aminotransferase 752 U/L (6-50); Aspartate Amino Transferase 1235 U/L (17-59); INR 1.1; Prothrombin Time 14.2 Seconds (11.1-14.7)
[2023-11-07 21:19] LABS: Partial Thromboplastin Time 28.9 Seconds (22.3-36.8)
[2023-11-07] MEDS: NALOXONE HCL 0.4 MG/ML VIAL IV PUSH (21:22)
[2023-11-07 21:32] LABS: NT Pro B Type Natriuretic Pept 6260 pg/mL (19.9-100); Troponin I 0.154 ng/mL (0.000-0.034)
[2023-11-07] MEDS: SODIUM ZIRCONIUM CYCLOSILICATE 10 GM POWD.PACK PO (21:35)
[2023-11-07 21:44] LABS: Creatine Kinase > 16000 U/L (55-170)
[2023-11-07 21:46] LABS: Add Urine Microscopic? YES; Appearance Urine Cloudy (Clear); Bacteria Urine None Seen /hpf; Bilirubin Urine Negative (Negative); Blood Urine 3+ (Negative); Color Urine Dark Yellow (Yellow); Glucose Urine UA Negative (Negative); Ketones Urine Negative (Negative); Leukocyte Esterase Ur Negative LEU/UL (Negative); Need Manual Microscopic Reviewed; Nitrate Urine Negative (Negative); Protein Urine 2+ mg/dL (Negative); Specific Grav Ur 1.022 (1.001-1.035); Squamous Epithelial Cell Urine None Seen /hpf (Few); WBC Urine 0-5 /hpf (0-3); pH Urine 5.5 (5.0-9.0)
[2023-11-07] MEDS: SODIUM BICARBONATE 8.4% 50 MEQ/50 ML SYRINGE IV PUSH (21:46)
[2023-11-07 21:48] LABS: Alveolar/Arterial O2 Gradient 223.7 mmHg; Base Excess ABG -9.8 mEq/l (+/-2.0); Fractional Inspired Oxygen 48 %; HCO3 ABG 17.1 mEq/l (22.0-26.0); Oxygen Content ABG 17.1 %vol (16.0-22.0); Oxygen Saturation ABG 91.9 % (95.0-100.0); PCO2 ABG 40.9 mmHg (35.0-45.0); PO2 ABG 72.3 mmHg (80.0-100.0); PO2 FiO2 Ratio Arterial Blood 1.51 %; Total Hemoglobin 14.1 g/dL (12.0-18.0)
[2023-11-07 21:50] LABS: Device HIGH FLOW NASAL CANN; Modified Allen's Test Pass; Oxyhemoglobin 86.1 % THb (90.0-100.0); Site Drawn RIGHT RADIAL; pH ABG 7.239 (7.350-7.450)
[2023-11-07 21:56] LABS: Barbiturate Screen Urine Negative (Negative); Benzodiazepines Screen Urine Negative (Negative)
[2023-11-07] MEDS: CALCIUM GLUCONATE 1,000 MG/10 ML VIAL 1000 MG IV PUSH (21:56)
[2023-11-07 21:59] LABS: Cannabinoid Screen Urine Negative (Negative); Cocaine Screen Urine Negative (Negative); Methadone Screen Urine Negative (Negative); Opiate Screen Urine Negative (Negative); Phencyclidine Screen Urine Negative (Negative)
[2023-11-07 22:19] LABS: Amphetamine Screen Urine Positive (Negative)
[2023-11-07] MEDS: SODIUM BICARBONATE 8.4% 150 MEQ in DEXTROSE 5% 1,000 ML 950 ML 100 MEQ IV CONT (22:42)
[2023-11-07] MEDS: INSULIN HUMAN REGULAR (*BKC) 100 UNITS/ML 10 UNITS IV PUSH (23:12)
[2023-11-07] MEDS: DEXTROSE 50% 25 GM/50 ML SYRINGE IV PUSH (23:13)
[2023-11-07] MEDS: cefTRIAXone 2 GM/NS 100 ML 2 GM/100 ML BAG IVPB (23:41)
[2023-11-07 23:43] LABS: Influenza A QL RT-PCR Negative (Negative); Influenza B QL RT-PCR Negative (Negative); RSV RNA, RT-PCR Negative (Negative); SARS-CoV-2 RNA PCR Negative (Negative)
[2023-11-07 23:55] LABS: Reflex Lactic Acid Yes or No Add Lactic
[2023-11-07 23:56] LABS: Anion Gap 11 mmol/L (4-12); Blood Urea Nitrogen 28 mg/dL (9-20); Calcium 6.5 mg/dL (8.4-10.2); Carbon Dioxide 23 mmol/L (22-30); Chloride 102 mmol/L (98-107); Estimated CRCL calculation 39 ml/min; Estimated Glomerular Filt Rate 30; Glucose 185 mg/dL (65-110); Potassium 6.3 mmol/L (3.4-5.0); Sodium 136 mmol/L (137-145)
[2023-11-08] VITALS (14 sets, daily range): BP systolic 97–137; BP diastolic 62–111; PULSE 84–108; RESP 10–22; TEMP 36.2–36.6; O2SAT 92–98; BMI 21.5; BMI 20.9
--- NOTE | 2023-11-08 | ECHO_ITS ---
Patient Info Name: Sidney Gold Age: 28 years : 1995 Gender: Male Ht: 74 in Wt: 163 lbs BSA: 1.96 m2 HR: 94 bpm BP: 106 / 79 mmHg Heart Rhythm: Sinus Rhythm Technical Quality: Good Exam Date: 11/08/2023 9:11 AM Exam Location: Echo Lab Patient Status: Inpatient Admit Date: 11/07/2023 Staff Ordering Physician: Na Malone DO Features Editor: Tamiko Kimble RDCS Attending Provider: Na Malone DO Referring Physician: Faisal DOVER; Exam Type: CA echo doppler color flow Study Info Indications - elevated troponin Complete two-dimensional, color flow and Doppler transthoracic echocardiogram is performed. Summary 1. Complete two-dimensional, color flow and Doppler transthoracic echocardiogram is performed. 2. Normal 2D/Doppler echocardiogram. Left Ventricle Left ventricular chamber dimension is normal. Left ventricular systolic function is normal, estimated at 55-60%. The left ventricular diastolic function is normal. Right Ventricle Right ventricular chamber dimension is normal. Left Atria Left atrial chamber dimension is normal. Right Atria Right atrial chamber dimension is normal. Aortic Valve The aortic valve is normal. Pulmonic Valve The pulmonic valve is normal. Mitral Valve The mitral valve has normal leaflets. Tricuspid Valve The tricuspid valve leaflets are normal. Pericardium/Pleural The pericardium appears normal. Aorta The aortic root size at the sinus of Valsalva is normal. Left Ventricular Outflow Tract Name Value Normal LVOT 2D LVOT Diameter 1.8 cm LVOT Doppler LVOT Peak Gradient 5 mmHg LVOT Mean Gradient 4 mmHg LVOT VTI 27 cm LVOT VTI/AV VTI Ratio 1.2 LVOT Stroke Volume 73 ml LVOT CO 6.3 l/min LVOT CI 3.2 l/min/m2 Pulmonic Valve Name Value Normal PV Doppler PV Peak Gradient 3 mmHg Mitral Valve Name Value Normal MV Doppler MV Decel [place] 412 cm/s2 MV PHT 58 ms MV Area (PHT) 3.8 cm2 4.0-5.0 MV Regurgitation Doppler MR Peak Gradient 18 mmHg MV Diastolic Function MV E Peak Velocity 82 cm/s MV A Peak Velocity 59 cm/s MV E/A 1.4 MV Decel Time
[2023-11-08 00:03] LABS: MRSA (PCR) DETECTED (NOT DETECTE)
[2023-11-08] MEDS: AZITHROMYCIN 500 MG/NS 250 ML 500 MG/250 ML BAG 250 MG IVPB ×2 (00:07→20:47)
--- NOTE | 2023-11-08 00:44 | PM.IMHP ---
H&P: HPI History of Present Illness Date/Time: 11/08/23 02:30 Chief Complaint: Altered mental status Narrative: 28-year-old male with past medical history of alcoholism, a narcotic abuse, methamphetamine abuse, schizoaffective disorder, bipolar disorder and generalized anxiety who presented to the ER after being found altered on a local bike trail. The patient was found sitting on a bench by the bike trail with pinpoint pupils. He received 0.4 of Narcan in the field without improvement in his level of confusion. The patient admitted to using fentanyl or heroin yesterday. The patient's urine drug screen positive for amphetamines. The patient is alert oriented x3 currently. Speech is slow. He has a flat affect. He reports that he does not know when he last used drugs. He is restless in scratching at his skin. He has multiple areas of pinpoint lesions on his extremities. He reports that he lost some time and does not know the exact events of what happened today. He reports that his legs hurt terribly. He states that he was walking in [place] and tripped and broke his legs. However the patient is able to pick his legs up off the bed in kicks them up and down freely. He is requesting pain medications for his severe leg pain. On exam patient bladder was markedly distended. The patient had greater than 650 mL on bladder scan and was able to void about 550 mL. He denies any dysuria. He is a poor historian. Source of information obtained from ER physician report, review of past medical records and patient report. The patient received 3 L normal saline in the ER. He was started on a sodium bicarb drip at 150 mL an hour. He also received Rocephin, azithromycin, vancomycin and Flagyl was added. CT of the abdomen pelvis demonstrated bilateral lower lobe pneumonias, chest x-ray demonstrated upper lobe pneumonia, blood cultures were obtained. MRSA screen was positive. Labs demonstrated acute kidney injury, marked rhabdomyolysis, transaminitis and acute hyperkalemia. The patient received low, sodium bicarb, calcium in the ER due to hyperkalemia. Repeat labs demonstrated persistent hyperkalemia and I subsequently ordered repeat hyperkalemia treatment protocol. Patient was hypoxic on arrival to the ER and initially was requiring 6 L of oxygen. Oxygen has subsequently been weaned down to 2 L. Review of Systems Review of Systems: 12 systems were reviewed with pertinent positives and negatives per HPI. Except as documented in the HPI, all other systems were reviewed and are negative. [facility] Past Medical History Medical History (Updated 11/08/23 @ 03:54 by Na Malone DO) Alcoholism Anxiety Bipolar 1 disorder Heroin abuse Methamphetamine abuse Polysubstance abuse Schizoaffective disorder Surgical History Surgical History (Updated 11/08/23 @ 00:50 by Na Malone DO) History of facial surgery Jaw reconstruction Family History Family History Father Drug abuse Mother Depression Social History Social History (Updated 11/08/23 @ 00:57 by Na Malone DO) Social History: The patient is single. The patient was back and forth between his mom and dad's house. The patient is disabled due to his mental illness. He does not have any children. The patient has a history of alcohol abuse. He has a history of polysubstance abuse. Code status: Full code With surrogate decision maker: Parents Smoking packs per day: 1 Smoking cigarettes per day: 20.0 Smoking status: Never smoker Alcohol intake: current Substance use: current Substance use type: amphetamines Gender identity (if verbalized by the patient): Male Spiritual care concerns: No Meds Home Medications and Allergies Home Medications Medication Instructions Recorded Confirmed Type clonazepam 0.5 mg tablet 0.5 mg PO TID 06/28/21 11/08/23 History gabapentin 300 m
[2023-11-08] MEDS: ALBUTEROL SULFATE NEB 2.5 MG/3 ML INH 15 MG INHALATION (00:53)
[2023-11-08 01:19] LABS: Lactic Acid 1.6 mmol/L (0.7-2.0)
[2023-11-08] MEDS: INSULIN HUMAN REGULAR (*BKC) 100 UNITS/ML 10 UNITS IV PUSH (01:31)
[2023-11-08] MEDS: DEXTROSE 50% 25 GM/50 ML SYRINGE IV PUSH (01:32)
[2023-11-08] MEDS: CALCIUM GLUCONATE 1,000 MG/10 ML VIAL 1000 MG IV PUSH (01:32)
[2023-11-08] MEDS: SODIUM BICARBONATE 8.4% 50 MEQ/50 ML SYRINGE IV PUSH (01:32)
[2023-11-08 01:44] LABS: Troponin I 0.068 ng/mL (0.000-0.034)
--- NOTE | 2023-11-08 02:00 | ADMGEN ---
This patient, Sidney Gold, was admitted to Intensive Care Unit-5. Patient/family oriented to hospital policies and general routines including ID bracelet, bed and alarms, visiting hours, pain management, procedures, bathroom and other care routines, personal items, smoking policy, room service/diet, and visiting hours. Information on how to activate the Rapid Response Team has been discussed. Patient/Family are encouraged to report perceived risks to care and to ask questions if they do not understand what they are told or what they should do.
[2023-11-08] MEDS: VANCOMYCIN 1,250 MG/NS 250 ML 1,250 MG/250 ML BAG 166.67 MG IVPB (02:19)
[2023-11-08] MEDS: metroNIDAZOLE 500 MG/ISO 100ML 500 MG/100 ML BAG 100 MG IVPB ×2 (02:33→09:34)
[2023-11-08 04:53] LABS: Basophils Percent Auto 0.1 % (0.2-1.2); Hematocrit 36.8 % (42.0-52.0); Hemoglobin 12.2 g/dL (14.0-18.0); Immature Granulocyte Absolute 0.07 K/mm3 (0.00-0.031); Immature Granulocyte Percent A 0.4 % (0-0.5); Lymphocytes Absolute Auto 0.61 K/mm3 (0.9-3.2); Lymphocytes Percent Auto 3.7 % (18.3-44.2); Mean Corpuscular HGB Conc 33.2 g/dl (32-36); Mean Corpuscular Hemoglobin 29.8 pg (26-34); Mean Corpuscular Volume 89.8 fl (80-100); Mean Platelet Volume 9.6 fl (7.4-10.4); Monocytes Absolute Auto 0.8 K/mm3 (0.1-0.6); Neutrophils Absolute Auto 15.1 K/mm3 (1.3-6.7); Neutrophils Percent Auto 90.8 % (45.5-73.1); Platelet Count Result 244 k/mm3 (150-375); Red Cell Distribution Width 13.7 % (11.5-14.5); White Blood Count 16.7 K/mm3 (4.5-10.0)
[2023-11-08 05:14] LABS: Alanine Aminotransferase 553 U/L (6-50); Albumin Level 3.1 g/dL (3.5-5.1); Alkaline Phosphatase 49 U/L (38-126); Anion Gap 8 mmol/L (4-12); Bilirubin,Total 0.3 mg/dL (0.2-1.3); Blood Urea Nitrogen 28 mg/dL (9-20); Calcium 7.3 mg/dL (8.4-10.2); Carbon Dioxide 28 mmol/L (22-30); Chloride 102 mmol/L (98-107); Estimated CRCL calculation 51 ml/min; Estimated Glomerular Filt Rate 39; Glucose 139 mg/dL (65-110); Potassium 4.3 mmol/L (3.4-5.0); Sodium 138 mmol/L (137-145)
[2023-11-08 05:15] LABS: Lactic Acid Reflex 2.4 mmol/L (0.7-2.0)
[2023-11-08 05:22] LABS: Aspartate Amino Transferase 988 U/L (17-59)
[2023-11-08 05:38] LABS: Creatine Kinase > 16000 U/L (55-170)
[2023-11-08 05:49] LABS: Hepatitis B Surface Antigen Negative (Negative); Thyroid Stimulating Hormone Reflex 0.442 uIU/mL (0.465-4.68)
[2023-11-08 05:55] LABS: HAV RESULT Negative (Negative); Hepatitis B Core IgM Result Negative (Negative)
[2023-11-08 06:07] LABS: Hepatitis C Virus Antibody Negative (Negative)
[2023-11-08 06:38] LABS: Free T4 Free Thyroxine Reflex 1.08 ng/dL (0.78-2.19)
[2023-11-08] MEDS: OLANZapine 5 MG TABLET 15 MG PO (09:34)
[2023-11-08] MEDS: THIAMINE HCL 200 MG/2 ML VIAL 100 MG IV PUSH (09:34)
[2023-11-08] MEDS: GABAPENTIN 300 MG CAPSULE PO ×3 (09:34→17:42)
[2023-11-08] MEDS: SODIUM BICARBONATE 8.4% 150 MEQ in DEXTROSE 5% 1,000 ML 950 ML 100 MEQ IV CONT ×2 (09:35→17:41)
[2023-11-08] MEDS: PIPERACILLIN/TAZ 4.5G/NS 100ML 4.5 GM/100 ML BAG IVPB ×2 (11:49→17:49)
--- NOTE | 2023-11-08 12:32 | P.CONNP_ITS ---
Assessment and Plan Assessment and plan (1) Acute kidney injury: Code(s): N17.9 - Acute kidney failure, unspecified Status: Acute Assessment and Plan: * due to several issues: * rhabdomyolysis * possible prerenal factors * polysubstance abuse * relative hypotension * improvement in renal function/creatinine noted * s/p aggressive IVF resuscitation * reasonable urine output noted * follow trend of repeat labs and UOP (2) Acute hyperkalemia: Code(s): E87.5 - Hyperkalemia Status: Acute Assessment and Plan: * better at this time * secondary to metabolic acidosis, MAURO/ARF and rhabdomyolysis * s/p medical management * follow repeat K+ levels (3) Rhabdomyolysis: Code(s): M62.82 - Rhabdomyolysis Status: Acute Assessment and Plan: * as noted by serial CPKs > 16,000 * on IVFs * follow CPK levels * consider switching to normal saline if CO2 levels continue to rise (4) Pneumonia: Code(s): J18.9 - Pneumonia, unspecified organism Status: Acute Assessment and Plan: * as noted by admission imaging * suspicion falls on possible aspiration given admission history * follow culture data * on antibiotics * respiratory status relatively stable (5) Lactic acidosis: Code(s): E87.20 - Acidosis, unspecified Status: Acute Assessment and Plan: * due to hypovolemia, hypotension, and rhabo * trending down with IVFs * follow repeat levels (6) Transaminitis: Code(s): R74.01 - Elevation of levels of liver transaminase levels Status: Acute Assessment and Plan: * due to hypovolemia/hypotension, polysubstance abuse, alcoholism, shock liver * appear to be trending down * follow repeat labs (7) Polysubstance abuse: Code(s): F19.10 - Other psychoactive substance abuse, uncomplicated Status: Chronic Assessment and Plan: * urine tox screen was positive for amphetamines * known history of heroin and opiate abuse * responded to Narcan when givenby EMS as well as in ER * stable mentation I will continue follow patient with you while he remains hospitalized and make further recommendations as deemed necessary. Thank you for allowing me to participate in the care of this patient. History of Present Illness Reason for Consult Consult date: 11/08/23 Reason for consult: acute renal failure Chief Complaint Chief complaint: Rhabdomyolysis, Pneumonia, Hyperkalemia History of Present Illness Narrative: All the information that I obtained is from review of the electronic medical record as well as discussion with the physicians/nurses involved in the patient's care as the patient is unable to provide me much history as to the events that led to his admission to the hospital. The patient is a 28-year-old male with a past medical history as outlined below who presented to [facility] Emergency room with altered mental status. The patient apparently was [place] He was noted to have altered mental status as well and is unclear how long he was on the bench before he was noticed. EMS was called and on their arrival, administer Narcan given the patient's history with some improvement in his level of consciousness. The patient reported that he recently used Fentanyl and or heroin. He was subsequently transported to the emergency room for further assessment. Upon arrival to the emergency room, his mental status was still fluctuating and he wa
--- NOTE | 2023-11-08 12:32 | PM.CNNEP ---
Assessment and Plan Assessment and plan (1) Acute kidney injury: Code(s): N17.9 - Acute kidney failure, unspecified Status: Acute Assessment and Plan: due to several issues: rhabdomyolysis possible prerenal factors polysubstance abuse relative hypotension improvement in renal function/creatinine noted s/p aggressive IVF resuscitation reasonable urine output noted follow trend of repeat labs and UOP (2) Acute hyperkalemia: Code(s): E87.5 - Hyperkalemia Status: Acute Assessment and Plan: better at this time secondary to metabolic acidosis, MAURO/ARF and rhabdomyolysis s/p medical management follow repeat K+ levels (3) Rhabdomyolysis: Code(s): M62.82 - Rhabdomyolysis Status: Acute Assessment and Plan: as noted by serial CPKs > 16,000 on IVFs follow CPK levels consider switching to normal saline if CO2 levels continue to rise (4) Pneumonia: Code(s): J18.9 - Pneumonia, unspecified organism Status: Acute Assessment and Plan: as noted by admission imaging suspicion falls on possible aspiration given admission history follow culture data on antibiotics respiratory status relatively stable (5) Lactic acidosis: Code(s): E87.20 - Acidosis, unspecified Status: Acute Assessment and Plan: due to hypovolemia, hypotension, and rhabo trending down with IVFs follow repeat levels (6) Transaminitis: Code(s): R74.01 - Elevation of levels of liver transaminase levels Status: Acute Assessment and Plan: due to hypovolemia/hypotension, polysubstance abuse, alcoholism, shock liver appear to be trending down follow repeat labs (7) Polysubstance abuse: Code(s): F19.10 - Other psychoactive substance abuse, uncomplicated Status: Chronic Assessment and Plan: urine tox screen was positive for amphetamines known history of heroin and opiate abuse responded to Narcan when givenby EMS as well as in ER stable mentation I will continue follow patient with you while he remains hospitalized and make further recommendations as deemed necessary. Thank you for allowing me to participate in the care of this patient. History of Present Illness Reason for Consult Consult date: 11/08/23 Reason for consult: acute renal failure Chief Complaint Chief complaint: Rhabdomyolysis, Pneumonia, Hyperkalemia History of Present Illness Narrative: All the information that I obtained is from review of the electronic medical record as well as discussion with the physicians/nurses involved in the patient's care as the patient is unable to provide me much history as to the events that led to his admission to the hospital. The patient is a 28-year-old male with a past medical history as outlined below who presented to [facility] Emergency room with altered mental status. The patient apparently was found sitting/[place]. He was noted to have altered mental status as well and is unclear how long he was on the bench before he was noticed. EMS was called and on their arrival, administer Narcan given the patient's history with some improvement in his level of consciousness. The patient reported that he recently used Fentanyl and or heroin. He was subsequently transported to the emergency room for further assessment. Upon arrival to the emergency room, his mental status was still fluctuating and he was given another dose of Narcan with further subsequent improvement in his mentation. His initial blood pressure was somewhat soft in the high 80s to 90 systolic but improved with IV fluid resuscitation. Routine blood test demonstrated an elevated white blood cell count of 18.6, and elevated hemoglobin 16.6, an ABG with significant metabolic acidosis. His chemistry showed an elevated potassium of 7.2, CO2 of 20, and evidence of acute kidney injury with a
--- NOTE | 2023-11-08 12:45 | WPDCNINT ---
Assessment and Plan Assessment and plan (1) Acute kidney injury: Code(s): N17.9 - Acute kidney failure, unspecified Status: Acute Assessment and Plan: Acute kidney injury likely related to rhabdomyolysis, hypokalemia, substance abuse -patient has been adequately fluid-resuscitated -continue bicarb infusion for now, will obtain BMP later this evening and may switch to LR or normal saline -urine output has been adequate, creatinine trending down -continue to monitor renal function, electrolytes, CK levels, urine output -CT scan abdomen and pelvis did not show any hydronephrosis -appreciate nephrology following the patient (2) Acute hyperkalemia: Code(s): E87.5 - Hyperkalemia Status: Acute Assessment and Plan: Acute hyperkalemia likely a to metabolic acidosis, acute kidney injury, rhabdomyolysis -hyperkalemia was treated aggressively as his potassium level was 7.1 on admission -potassium levels this morning have normalized -, continue maintenance IV fluids - (3) Pneumonia: Code(s): J18.9 - Pneumonia, unspecified organism Status: Acute Assessment and Plan: Chest x-ray showed left upper and lower lobe pneumonia, atypical versus Viral pneumonia should be considered -likely aspiration pneumonia [place] had responsive -continue azithromycin and will start Zosyn -will discontinue vancomycin, ceftriaxone and Flagyl -currently on 2 L nasal cannula with adequate O2 sats (4) Rhabdomyolysis: Code(s): M62.82 - Rhabdomyolysis Status: Acute Assessment and Plan: Adequately fluid-resuscitated, continue maintenance IV fluids with sodium bicarb -obtained BMP later this evening and will switch to LR or normal saline if his CO2 is significantly elevated -continue to monitor CK level (5) Polysubstance abuse: Code(s): F19.10 - Other psychoactive substance abuse, uncomplicated Status: Chronic Assessment and Plan: Urine tox screen was positive for amphetamines -patient does take heroin, opiates -responded to Narcan when he was found by EMS. Was again given Narcan in the ER to which he responded. -currently is awake, alert, oriented (6) Schizoaffective disorder: Qualifiers: Schizoaffective disorder type: bipolar Qualified Code(s): F25.0 - Schizoaffective disorder, bipolar type Code(s): F25.9 - Schizoaffective disorder, unspecified Status: Chronic Assessment and Plan: Continue olanzapine, clonazepam (7) Lactic acidosis: Code(s): E87.20 - Acidosis, unspecified Status: Acute Assessment and Plan: Adequately fluid-resuscitated most likely related to rhabdomyolysis, possible hypovolemia/hypotension -trending down, will continue to monitor (8) Alcoholism: Code(s): F10.20 - Alcohol dependence, uncomplicated Status: Chronic Assessment and Plan: Patient with history of alcoholism, alcohol levels on admission were within normal limits -will watch for withdrawal (9) Transaminitis: Code(s): R74.01 - Elevation of levels of liver transaminase levels Status: Acute Assessment and Plan: Significantly elevated LFTs likely related to hypovolemia/hypotension, polysubstance abuse, alcoholism, shock liver -adequately fluid-resuscitated, maintain MAP of greater than 65 mmHg for adequate end organ perfusion -LFTs trending down, continue to monitor Bilirubin is within normal limits (10) Elevated troponin: Code(s): R79.89 - Other specified abnormal findings of blood chemistry Status: Acute Assessment and Plan: Elevated troponin could be related to polysubstance abuse -will trend troponin -check echocardiogram Plan DVT prophylaxis: SCDs Stress ulcer prophylaxis: Not indicated Nutrition: Regular diet Code Status: Full code Critical Care Time Spent: 47 minutes Due to a high probability of clinically significant, life threatening det
[2023-11-08 18:22] LABS: Lactic Acid Reflex 2.5 mmol/L (0.7-2.0)
[2023-11-08 18:43] LABS: Alanine Aminotransferase 432 U/L (6-50); Albumin Level 2.8 g/dL (3.5-5.1); Alkaline Phosphatase 56 U/L (38-126); Anion Gap 4 mmol/L (4-12); Aspartate Amino Transferase 718 U/L (17-59); Bilirubin,Total 0.3 mg/dL (0.2-1.3); Blood Urea Nitrogen 24 mg/dL (9-20); Calcium 7.3 mg/dL (8.4-10.2); Carbon Dioxide 38 mmol/L (22-30); Chloride 92 mmol/L (98-107); Estimated CRCL calculation 64 ml/min; Estimated Glomerular Filt Rate 51; Glucose 133 mg/dL (65-110); Magnesium 1.9 mg/dL (1.6-2.3); Phosphorus 2.6 mg/dL (2.5-4.5); Potassium 3.2 mmol/L (3.4-5.0); Sodium 134 mmol/L (137-145); Troponin I 0.086 ng/mL (0.000-0.034)
[2023-11-08 19:09] LABS: Creatine Kinase > 16000 U/L (55-170)
[2023-11-08] MEDS: SODIUM CHLORIDE 0.9% IV 1,000 ML 125 ML IV CONT (20:46)
[2023-11-08] MEDS: traZODone HCL 50 MG TABLET PO (20:47)
[2023-11-08 21:10] LABS: Reflex Lactic Acid Yes or No Add Lactic
[2023-11-08 22:15] LABS: Lactic Acid 2.9 mmol/L (0.7-2.0)
[2023-11-08 23:06] LABS: Vancomycin Random 5.6 ug/mL (10-20)
[2023-11-09] MEDS: PIPERACILLIN/TAZ 4.5G/NS 100ML 4.5 GM/100 ML BAG IVPB ×4 (00:12→17:31)
[2023-11-09] MEDS: SODIUM CHLORIDE 0.9% IV 1,000 ML 125 ML IV CONT ×2 (05:34→17:31)
[2023-11-09 05:58] LABS: Basophils Percent Auto 0.3 % (0.2-1.2); Eosinophils Absolute Auto 0.1 K/mm3 (0-0.3); Eosinophils Percent Auto 1.1 % (0-4.4); Hematocrit 37.4 % (42.0-52.0); Hemoglobin 12.1 g/dL (14.0-18.0); Immature Granulocyte Absolute 0.06 K/mm3 (0.00-0.031); Immature Granulocyte Percent A 0.5 % (0-0.5); Lymphocytes Absolute Auto 1.34 K/mm3 (0.9-3.2); Lymphocytes Percent Auto 10.9 % (18.3-44.2); Mean Corpuscular HGB Conc 32.4 g/dl (32-36); Mean Corpuscular Hemoglobin 29.2 pg (26-34); Mean Corpuscular Volume 90.3 fl (80-100); Mean Platelet Volume 9.4 fl (7.4-10.4); Monocytes Absolute Auto 0.6 K/mm3 (0.1-0.6); Monocytes Percent Auto 5.2 % (2.6-8.5); Neutrophils Absolute Auto 10.1 K/mm3 (1.3-6.7); Platelet Count Result 225 k/mm3 (150-375); Red Blood Count 4.14 M/mm3 (4.6-6.20); Red Cell Distribution Width 13.4 % (11.5-14.5); White Blood Count 12.3 K/mm3 (4.5-10.0)
[2023-11-09 06:05] LABS: Lactic Acid Reflex 2.2 mmol/L (0.7-2.0)
[2023-11-09 06:09] LABS: INR 1.2; Prothrombin Time 15.2 Seconds (11.1-14.7)
[2023-11-09 06:10] LABS: Partial Thromboplastin Time 33.2 Seconds (22.3-36.8)
[2023-11-09 06:26] VITALS: BP 124/79; PULSE 102; RESP 20; TEMP 36.6; O2SAT 96
[2023-11-09 06:49] LABS: Alanine Aminotransferase 415 U/L (6-50); Alkaline Phosphatase 67 U/L (38-126); Anion Gap 6 mmol/L (4-12); Aspartate Amino Transferase 593 U/L (17-59); Bilirubin,Total 0.4 mg/dL (0.2-1.3); Blood Urea Nitrogen 19 mg/dL (9-20); Calcium 7.7 mg/dL (8.4-10.2); Carbon Dioxide 35 mmol/L (22-30); Chloride 97 mmol/L (98-107); Estimated CRCL calculation 64 ml/min; Estimated Glomerular Filt Rate 51; Glucose 98 mg/dL (65-110); Phosphorus 1.6 mg/dL (2.5-4.5); Potassium 3.5 mmol/L (3.4-5.0); Sodium 138 mmol/L (137-145)
--- NOTE | 2023-11-09 06:56 | P.PNNP_ITS ---
Progress Note: A&P Assessment and Plan (1) Acute kidney injury: Code(s): N17.9 - Acute kidney failure, unspecified Status: Acute Assessment and Plan: * Acute kidney injury. * Renal sonogram is normal. * due to several issues: * rhabdomyolysis * possible prerenal factors * polysubstance abuse * relative hypotension * Creatinine is improving * Continuing some IV fluids. He is on normal saline now because of the high bicarb * He made a little more than a Liter of urine yesterday * Will check another creatinine tomorrow (2) Acute hyperkalemia: Code(s): E87.5 - Hyperkalemia Status: Acute Assessment and Plan: * Probably due to rhabdo acidosis and MAURO * Resolved (3) Rhabdomyolysis: Code(s): M62.82 - Rhabdomyolysis Status: Acute Assessment and Plan: * as noted by serial CPKs > 16,000 * on IVFs * follow CPK levels * Since these are so high we can use liver enzymes as a surrogate because these are probably high because of the rhabdo * Liver enzymes are improved (4) Pneumonia: Code(s): J18.9 - Pneumonia, unspecified organism Status: Acute Assessment and Plan: * as noted by admission imaging * suspicion falls on possible aspiration given admission history * follow culture data * on antibiotics * No shortness of breath. (5) Lactic acidosis: Code(s): E87.20 - Acidosis, unspecified Status: Acute Assessment and Plan: * due to hypovolemia, hypotension, and rhabo * Lactic acid down to 2.2 * Anion gap improved to normal * Check another lactate tomorrow (6) Transaminitis: Code(s): R74.01 - Elevation of levels of liver transaminase levels Status: Acute Assessment and Plan: * due to hypovolemia/hypotension, polysubstance abuse, alcoholism, shock liver but most likely rhabdo * appear to be trending down * Check in the morning (7) Polysubstance abuse: Code(s): F19.10 - Other psychoactive substance abuse, uncomplicated Status: Chronic Assessment and Plan: * urine tox screen was positive for amphetamines * known history of heroin and opiate abuse * responded to Narcan when givenby EMS as well as in ER * stable mentation Subjective Date/time seen: 11/09/23 06:56 Interval history: Weight is feeling better today. He has some aches but better than on admission. He is somewhat drowsy today. Review of Systems Cardiovascular: Cardiovascular: Reports no additional cardiovascular complaints Respiratory: Respiratory: Reports no additional respiratory complaints Gastrointestinal: Gastrointestinal: Reports no additional gastrointestinal complaints Genitourinary: Genitourinary: Reports no additional male genitourinary complaints Exam Narrative: WDWN in NAD skin no rash head ncat lungs clear cor reg no rub abd BS+ nontender and soft ext no edema. Objective Data Vital Signs Vital Signs: Vital Signs - 24 hr 11/08/23 08:00 11/08/23 08:00 11/08/23 08:00 Temperature 97.6 F Pulse Rate 99 99 Respiratory Rate 17 Blood Pressure 122/111 H Pulse Oximetry 98 97 Oxygen Delivery Nasal Cannula Oxygen Flow Rate 2 11/08/23 10:00 11/08/23 10:00 11/08/23 18:5
--- NOTE | 2023-11-09 06:56 | PM.PNNEP ---
Progress Note: A&P Assessment and Plan (1) Acute kidney injury: Code(s): N17.9 - Acute kidney failure, unspecified Status: Acute Assessment and Plan: Acute kidney injury. Renal sonogram is normal. due to several issues: rhabdomyolysis possible prerenal factors polysubstance abuse relative hypotension Creatinine is improving Continuing some IV fluids. He is on normal saline now because of the high bicarb He made a little more than a Liter of urine yesterday Will check another creatinine tomorrow (2) Acute hyperkalemia: Code(s): E87.5 - Hyperkalemia Status: Acute Assessment and Plan: Probably due to rhabdo acidosis and MAURO Resolved (3) Rhabdomyolysis: Code(s): M62.82 - Rhabdomyolysis Status: Acute Assessment and Plan: as noted by serial CPKs > 16,000 on IVFs follow CPK levels Since these are so high we can use liver enzymes as a surrogate because these are probably high because of the rhabdo Liver enzymes are improved (4) Pneumonia: Code(s): J18.9 - Pneumonia, unspecified organism Status: Acute Assessment and Plan: as noted by admission imaging suspicion falls on possible aspiration given admission history follow culture data on antibiotics No shortness of breath. (5) Lactic acidosis: Code(s): E87.20 - Acidosis, unspecified Status: Acute Assessment and Plan: due to hypovolemia, hypotension, and rhabo Lactic acid down to 2.2 Anion gap improved to normal Check another lactate tomorrow (6) Transaminitis: Code(s): R74.01 - Elevation of levels of liver transaminase levels Status: Acute Assessment and Plan: due to hypovolemia/hypotension, polysubstance abuse, alcoholism, shock liver but most likely rhabdo appear to be trending down Check in the morning (7) Polysubstance abuse: Code(s): F19.10 - Other psychoactive substance abuse, uncomplicated Status: Chronic Assessment and Plan: urine tox screen was positive for amphetamines known history of heroin and opiate abuse responded to Narcan when givenby EMS as well as in ER stable mentation Subjective Date/time seen: 11/09/23 06:56 Interval history: Weight is feeling better today. He has some aches but better than on admission. He is somewhat drowsy today. Review of Systems Cardiovascular: Cardiovascular: Reports no additional cardiovascular complaints Respiratory: Respiratory: Reports no additional respiratory complaints Gastrointestinal: Gastrointestinal: Reports no additional gastrointestinal complaints Genitourinary: Genitourinary: Reports no additional male genitourinary complaints Exam Narrative: WDWN in NAD skin no rash head ncat lungs clear cor reg no rub abd BS+ nontender and soft ext no edema. Objective Data Vital Signs Vital Signs: Vital Signs - 24 hr 11/08/23 08:00 11/08/23 08:00 11/08/23 08:00 Temperature 97.6 F Pulse Rate 99 99 Respiratory Rate 17 Blood Pressure 122/111 H Pulse Oximetry 98 97 Oxygen Delivery Nasal Cannula Oxygen Flow Rate 2 11/08/23 10:00 11/08/23 10:00 11/08/23 18:54 Temperature 97.2 F L Pulse Rate 90 87 90 Respiratory Rate 13 18 Blood Pressure 121/83 111/62 Pulse Oximetry 96 92 Oxygen Delivery Oxygen Flow Rate 11/08/23 23:42 11/08/23 20:00 11/09/23 06:26 Temperature 97.7 F 97.8 F Pulse Rate 108 H 102 H Respiratory Rate 22 H 20 Blood Pressure 137/92 H 124/79 Pulse Oximetry 95 96 Oxygen Delivery Room Air Oxygen Flow Rate Intake/Output Intake/Output: Intake & Output 11/06/23 11/07/23 11/08/23 11/09/23 23:59 23:59 23:59 23:59 Intake Total 3000 3988.3 1720 Output Total 1250 1000 Balance 3000 2738.3 720 Meds/Results Medications: Active Medications Generic Name Dose Route Start Last Admin Trade Name Freq PRN Reason Stop Dose Admin Clona
[2023-11-09 07:14] LABS: Creatine Kinase 15780 U/L (55-170)
[2023-11-09] MEDS: GABAPENTIN 300 MG CAPSULE PO ×3 (09:24→17:31)
[2023-11-09 09:25] VITALS: O2SAT 97
[2023-11-09] MEDS: THIAMINE HCL 200 MG/2 ML VIAL 100 MG IV PUSH (09:25)
[2023-11-09] MEDS: OLANZapine 5 MG TABLET 15 MG PO (09:25)
[2023-11-09 13:26] LABS: Add Urine Microscopic? YES; Appearance Urine Clear (Clear); Bacteria Urine None Seen /hpf; Bilirubin Urine Negative (Negative); Blood Urine Trace (Negative); Color Urine Yellow (Yellow); Glucose Urine UA Negative (Negative); Ketones Urine Negative (Negative); Leukocyte Esterase Ur Negative LEU/UL (Negative); Nitrate Urine Negative (Negative); Protein Urine Negative (Negative); RBC Urine 0-2 /hpf (0-2); Specific Grav Ur 1.008 (1.001-1.035); Squamous Epithelial Cell Urine None Seen /hpf (Few); Urobilinogen Urine 0.2 mg/dL (<2.0); WBC Urine 0-5 /hpf (0-3)
--- NOTE | 2023-11-09 15:17 | PM.IMPN ---
Progress Note: A&P Assessment and Plan (1) Acute kidney injury: Code(s): N17.9 - Acute kidney failure, unspecified Status: Acute Assessment and Plan: Acute kidney injury likely related to rhabdomyolysis, hypokalemia, substance abuse -patient has been adequately fluid-resuscitated -continue bicarb infusion for now, will obtain BMP later this evening and may switch to LR or normal saline -urine output has been adequate, creatinine trending down -continue to monitor renal function, electrolytes, CK levels, urine output -CT scan abdomen and pelvis did not show any hydronephrosis -appreciate nephrology following the patient (2) Acute hyperkalemia: Code(s): E87.5 - Hyperkalemia Status: Acute Assessment and Plan: Acute hyperkalemia likely a to metabolic acidosis, acute kidney injury, rhabdomyolysis -hyperkalemia was treated aggressively as his potassium level was 7.1 on admission -potassium levels this morning have normalized -, continue maintenance IV fluids continue monitoring - (3) Pneumonia: Code(s): J18.9 - Pneumonia, unspecified organism Status: Acute Assessment and Plan: Chest x-ray showed left upper and lower lobe pneumonia, atypical versus Viral pneumonia should be considered -likely aspiration pneumonia [place] had responsive -continue azithromycin and will start Zosyn -will discontinue vancomycin, ceftriaxone and Flagyl -currently on room air Continue Zosyn and Azithromycin monitor cultures (4) Rhabdomyolysis: Code(s): M62.82 - Rhabdomyolysis Status: Acute Assessment and Plan: Adequately fluid-resuscitated, continue maintenance IV fluids with sodium bicarb -obtained BMP later this evening and will switch to LR or normal saline if his CO2 is significantly elevated -CK 92601 down from >97090 Contineu IVF and continue monitoring (5) Polysubstance abuse: Code(s): F19.10 - Other psychoactive substance abuse, uncomplicated Status: Chronic Assessment and Plan: Urine tox screen was positive for amphetamines -patient does take heroin, opiates -responded to Narcan when he was found by EMS. Was again given Narcan in the ER to which he responded. -currently is awake, alert, oriented (6) Schizoaffective disorder: Qualifiers: Schizoaffective disorder type: bipolar Qualified Code(s): F25.0 - Schizoaffective disorder, bipolar type Code(s): F25.9 - Schizoaffective disorder, unspecified Status: Chronic Assessment and Plan: Continue olanzapine, clonazepam (7) Lactic acidosis: Code(s): E87.20 - Acidosis, unspecified Status: Acute Assessment and Plan: Adequately fluid-resuscitated most likely related to rhabdomyolysis, possible hypovolemia/hypotension -trending down, will continue to monitor (8) Alcoholism: Code(s): F10.20 - Alcohol dependence, uncomplicated Status: Chronic Assessment and Plan: Patient with history of alcoholism, alcohol levels on admission were within normal limits -will watch for withdrawal (9) Transaminitis: Code(s): R74.01 - Elevation of levels of liver transaminase levels Status: Acute Assessment and Plan: Significantly elevated LFTs likely related to hypovolemia/hypotension, polysubstance abuse, alcoholism, shock liver -adequately fluid-resuscitated, maintain MAP of greater than 65 mmHg for adequate end organ perfusion -LFTs trending down, continue to monitor Bilirubin is within normal limits (10) Elevated troponin: Code(s): R79.89 - Other specified abnormal findings of blood chemistry Status: Acute Assessment and Plan: Elevated troponin could be related to polysubstance abuse -will trend troponin -check echocardiogram Plan DVT prophylaxis: SCDs Stress ulcer prophylaxis: Not indicated Nutrition: Regular diet Code Status: Full code Critical Care Time Spent: 47 minut
[2023-11-09 15:49] VITALS: BP 127/78; PULSE 108; RESP 15; TEMP 36.8; O2SAT 97
[2023-11-09] MEDS: traZODone HCL 50 MG TABLET PO (20:51)
[2023-11-09] MEDS: AZITHROMYCIN 500 MG/NS 250 ML 500 MG/250 ML BAG 250 MG IVPB (20:51)
[2023-11-09 22:44] VITALS: BP 136/81; PULSE 106; RESP 20; TEMP 36.9; O2SAT 96
[2023-11-10] MEDS: PIPERACILLIN/TAZ 4.5G/NS 100ML 4.5 GM/100 ML BAG IVPB ×4 (00:12→17:37)
[2023-11-10 05:35] LABS: Basophils Absolute Auto 0.1 K/mm3 (0.0-0.1); Basophils Percent Auto 0.6 % (0.2-1.2); Eosinophils Absolute Auto 0.6 K/mm3 (0-0.3); Eosinophils Percent Auto 5.9 % (0-4.4); Hematocrit 37.8 % (42.0-52.0); Hemoglobin 12.3 g/dL (14.0-18.0); Immature Granulocyte Absolute 0.03 K/mm3 (0.00-0.031); Immature Granulocyte Percent A 0.3 % (0-0.5); Lymphocytes Absolute Auto 0.99 K/mm3 (0.9-3.2); Lymphocytes Percent Auto 10.6 % (18.3-44.2); Mean Corpuscular HGB Conc 32.5 g/dl (32-36); Mean Corpuscular Hemoglobin 29.4 pg (26-34); Mean Corpuscular Volume 90.4 fl (80-100); Monocytes Absolute Auto 0.7 K/mm3 (0.1-0.6); Monocytes Percent Auto 7.3 % (2.6-8.5); Neutrophils Percent Auto 75.3 % (45.5-73.1); Platelet Count Result 213 k/mm3 (150-375); Red Blood Count 4.18 M/mm3 (4.6-6.20); Red Cell Distribution Width 13.5 % (11.5-14.5); White Blood Count 9.4 K/mm3 (4.5-10.0)
[2023-11-10 05:42] LABS: Alanine Aminotransferase 353 U/L (6-50); Albumin Level 3.3 g/dL (3.5-5.1); Alkaline Phosphatase 69 U/L (38-126); Anion Gap 4 mmol/L (4-12); Aspartate Amino Transferase 327 U/L (17-59); Bilirubin,Total 0.8 mg/dL (0.2-1.3); Blood Urea Nitrogen 11 mg/dL (9-20); Calcium 8.5 mg/dL (8.4-10.2); Carbon Dioxide 33 mmol/L (22-30); Chloride 105 mmol/L (98-107); Estimated CRCL calculation 84 ml/min; Estimated Glomerular Filt Rate > 60; Glucose 100 mg/dL (65-110); Lactic Acid Reflex 0.6 mmol/L (0.7-2.0); Phosphorus 2.2 mg/dL (2.5-4.5); Potassium 3.9 mmol/L (3.4-5.0); Sodium 142 mmol/L (137-145)
[2023-11-10 05:43] LABS: INR 1.1; Prothrombin Time 14.9 Seconds (11.1-14.7)
[2023-11-10 06:15] LABS: Creatine Kinase 8100 U/L (55-170)
--- NOTE | 2023-11-10 08:45 | P.PNNP_ITS ---
Progress Note: A&P Assessment and Plan (1) Acute kidney injury: Code(s): N17.9 - Acute kidney failure, unspecified Status: Acute Assessment and Plan: * Acute kidney injury. * Renal sonogram is normal. * due to several issues: * rhabdomyolysis * possible prerenal factors * polysubstance abuse * relative hypotension * Creatinine is improved to normal * CPK and liver enzymes are both down. * Urine shows pH of 8. It also shows trace blood * He is getting fluids at 125an hour. We can decrease this to 75 and check things again tomorrow. (2) Acute hyperkalemia: Code(s): E87.5 - Hyperkalemia Status: Acute Assessment and Plan: * Probably due to rhabdo acidosis and MAURO * Resolved (3) Rhabdomyolysis: Code(s): M62.82 - Rhabdomyolysis Status: Acute Assessment and Plan: * as noted by serial CPKs > 16,000 * on IVFs * follow CPK levels * CK and ?LFTs? down (4) Pneumonia: Code(s): J18.9 - Pneumonia, unspecified organism Status: Acute Assessment and Plan: * as noted by admission imaging * suspicion falls on possible aspiration given admission history * follow culture data * on Zosyn * No shortness of breath. (5) Lactic acidosis: Code(s): E87.20 - Acidosis, unspecified Status: Acute Assessment and Plan: * due to hypovolemia, hypotension, and rhabo * Lactic acid is now normal * Anion gap improved to normal (6) Transaminitis: Code(s): R74.01 - Elevation of levels of liver transaminase levels Status: Acute Assessment and Plan: * due to hypovolemia/hypotension, polysubstance abuse, alcoholism, shock liver, but most likely rhabdo * appear to be trending down * Check in the morning (7) Polysubstance abuse: Code(s): F19.10 - Other psychoactive substance abuse, uncomplicated Status: Chronic Assessment and Plan: * urine tox screen was positive for amphetamines * known history of heroin and opiate abuse * responded to Narcan when givenby EMS as well as in ER * stable mentation Subjective Date/time seen: 11/10/23 08:45 Interval history: Patient is comfortable lying in bed. Eating okay. No shortness of breath Exam Narrative: WDWN gentleman in NAD skin no rash head ncat lungs clear cor reg no rub abd BS+ nontender and soft ext no edema. Objective Data Vital Signs Vital Signs: Vital Signs - 24 hr 11/09/23 15:49 11/09/23 09:25 11/09/23 20:00 Temperature 98.3 F Pulse Rate 108 H Respiratory Rate 15 Blood Pressure 127/78 Pulse Oximetry 97 97 Oxygen Delivery Room Air Room Air 11/09/23 22:44 Temperature 98.4 F Pulse Rate 106 H Respiratory Rate 20 Blood Pressure 136/81 Pulse Oximetry 96 Oxygen Delivery Intake/Output Intake/Output: Intake & Output 11/07/23 11/08/23 11/09/23 11/10/23 23:59 23:59 23:59 23:59 Intake Total 3000 4238.3 4470 340 Output Total 1250 4700 1400 Balance 3000 2988.3 -230 -1060 Meds/Results Medications: Active Medications Generic Name Dose Route Start
--- NOTE | 2023-11-10 08:45 | PM.PNNEP ---
Progress Note: A&P Assessment and Plan (1) Acute kidney injury: Code(s): N17.9 - Acute kidney failure, unspecified Status: Acute Assessment and Plan: Acute kidney injury. Renal sonogram is normal. due to several issues: rhabdomyolysis possible prerenal factors polysubstance abuse relative hypotension Creatinine is improved to normal CPK and liver enzymes are both down. Urine shows pH of 8. It also shows trace blood He is getting fluids at 125an hour. We can decrease this to 75 and check things again tomorrow. (2) Acute hyperkalemia: Code(s): E87.5 - Hyperkalemia Status: Acute Assessment and Plan: Probably due to rhabdo acidosis and MAURO Resolved (3) Rhabdomyolysis: Code(s): M62.82 - Rhabdomyolysis Status: Acute Assessment and Plan: as noted by serial CPKs > 16,000 on IVFs follow CPK levels CK and ?LFTs? down (4) Pneumonia: Code(s): J18.9 - Pneumonia, unspecified organism Status: Acute Assessment and Plan: as noted by admission imaging suspicion falls on possible aspiration given admission history follow culture data on Zosyn No shortness of breath. (5) Lactic acidosis: Code(s): E87.20 - Acidosis, unspecified Status: Acute Assessment and Plan: due to hypovolemia, hypotension, and rhabo Lactic acid is now normal Anion gap improved to normal (6) Transaminitis: Code(s): R74.01 - Elevation of levels of liver transaminase levels Status: Acute Assessment and Plan: due to hypovolemia/hypotension, polysubstance abuse, alcoholism, shock liver, but most likely rhabdo appear to be trending down Check in the morning (7) Polysubstance abuse: Code(s): F19.10 - Other psychoactive substance abuse, uncomplicated Status: Chronic Assessment and Plan: urine tox screen was positive for amphetamines known history of heroin and opiate abuse responded to Narcan when givenby EMS as well as in ER stable mentation Subjective Date/time seen: 11/10/23 08:45 Interval history: Patient is comfortable lying in bed. Eating okay. No shortness of breath Exam Narrative: WDWN gentleman in NAD skin no rash head ncat lungs clear cor reg no rub abd BS+ nontender and soft ext no edema. Objective Data Vital Signs Vital Signs: Vital Signs - 24 hr 11/09/23 15:49 11/09/23 09:25 11/09/23 20:00 Temperature 98.3 F Pulse Rate 108 H Respiratory Rate 15 Blood Pressure 127/78 Pulse Oximetry 97 97 Oxygen Delivery Room Air Room Air 11/09/23 22:44 Temperature 98.4 F Pulse Rate 106 H Respiratory Rate 20 Blood Pressure 136/81 Pulse Oximetry 96 Oxygen Delivery Intake/Output Intake/Output: Intake & Output 11/07/23 11/08/23 11/09/23 11/10/23 23:59 23:59 23:59 23:59 Intake Total 3000 4238.3 4470 340 Output Total 1250 4700 1400 Balance 3000 2988.3 -601 -9908 Meds/Results Medications: Active Medications Generic Name Dose Route Start Last Admin Trade Name Freq PRN Reason Stop Dose Admin Clonazepam 0.5 mg 11/08/23 03:03 Clonazepam (*Crx) 0.5 Mg Tablet PO TID PRN Anxiety Dextrose 12.5 gm 11/07/23 23:25 Dextrose 50% 25 Gm/50 Ml Syringe IV PUSH PRN PRN Hypoglycemia Protocol Gabapentin 300 mg 11/08/23 09:00 11/09/23 17:31 Gabapentin 300 Mg Capsule PO 300 mg TID MIGUEL Administration Glucose 15 gm 11/07/23 23:25 Glucose Oral Gel 15 Gm Of Glucse In 37.5 Gm Tube PO PRN PRN Hypoglycemia Protocol Azithromycin 500 mg in 250 mls @ 250 mls/hr 11/08/23 22:00 11/09/23 20:51 Zithromax IVPB 250 mls/hr Q24H MIGUEL Administration Dextrose 1,000 mls @ 100 mls/hr 11/07/23 23:25 Dextrose 5% 1,000 Ml IVPB PRN PRN Hypoglycemia Protocol Piperacillin Sod/Tazobactam Sod 4.5 gm in 100 mls @ 200 mls/hr 11/08/23 11:00 11/10/23 06:1
[2023-11-10 10:00] VITALS: O2SAT 96
[2023-11-10] MEDS: OLANZapine 5 MG TABLET 15 MG PO (10:12)
[2023-11-10] MEDS: GABAPENTIN 300 MG CAPSULE PO ×3 (10:12→17:37)
[2023-11-10] MEDS: POTASSIUM PHOS/SODIUM PHOS 250 MG TABLET PO (10:12)
[2023-11-10] MEDS: THIAMINE HCL 200 MG/2 ML VIAL 100 MG IV PUSH (10:12)
[2023-11-10] MEDS: SODIUM CHLORIDE 0.9% IV 1,000 ML 75 ML IV CONT ×2 (10:30→20:39)
--- NOTE | 2023-11-10 12:59 | PM.IMPN ---
Progress Note: A&P Assessment and Plan (1) Acute kidney injury: Code(s): N17.9 - Acute kidney failure, unspecified Status: Acute Assessment and Plan: Acute kidney injury likely related to rhabdomyolysis, hypokalemia, substance abuse -patient has been adequately fluid-resuscitated -continue bicarb infusion for now, will obtain BMP later this evening and may switch to LR or normal saline -urine output has been adequate, creatinine trending down -continue to monitor renal function, electrolytes, CK levels, urine output -CT scan abdomen and pelvis did not show any hydronephrosis -appreciate nephrology following the patient (2) Acute hyperkalemia: Code(s): E87.5 - Hyperkalemia Status: Acute Assessment and Plan: Acute hyperkalemia likely a to metabolic acidosis, acute kidney injury, rhabdomyolysis -hyperkalemia was treated aggressively as his potassium level was 7.1 on admission -potassium levels this morning have normalized -, continue maintenance IV fluids continue monitoring - (3) Pneumonia: Code(s): J18.9 - Pneumonia, unspecified organism Status: Acute Assessment and Plan: Chest x-ray showed left upper and lower lobe pneumonia, atypical versus Viral pneumonia should be considered -likely aspiration pneumonia [place] had responsive -continue Zosyn and Azithromycin -currently on room air monitor cultures (4) Rhabdomyolysis: Code(s): M62.82 - Rhabdomyolysis Status: Acute Assessment and Plan: Adequately fluid-resuscitated, continue maintenance IV fluids with sodium bicarb -obtained BMP later this evening and will switch to LR or normal saline if his CO2 is significantly elevated -CK 8100 down from >02062 Continue IVF and continue monitoring nephrology followin g (5) Polysubstance abuse: Code(s): F19.10 - Other psychoactive substance abuse, uncomplicated Status: Chronic Assessment and Plan: Urine tox screen was positive for amphetamines -patient does take heroin, opiates -responded to Narcan when he was found by EMS. Was again given Narcan in the ER to which he responded. -currently is awake, alert, oriented (6) Schizoaffective disorder: Qualifiers: Schizoaffective disorder type: bipolar Qualified Code(s): F25.0 - Schizoaffective disorder, bipolar type Code(s): F25.9 - Schizoaffective disorder, unspecified Status: Chronic Assessment and Plan: Continue olanzapine, clonazepam (7) Lactic acidosis: Code(s): E87.20 - Acidosis, unspecified Status: Acute Assessment and Plan: Adequately fluid-resuscitated most likely related to rhabdomyolysis, possible hypovolemia/hypotension -trending down, will continue to monitor (8) Alcoholism: Code(s): F10.20 - Alcohol dependence, uncomplicated Status: Chronic Assessment and Plan: Patient with history of alcoholism, alcohol levels on admission were within normal limits -will watch for withdrawal (9) Transaminitis: Code(s): R74.01 - Elevation of levels of liver transaminase levels Status: Acute Assessment and Plan: Significantly elevated LFTs likely related to hypovolemia/hypotension, polysubstance abuse, alcoholism, shock liver -adequately fluid-resuscitated, maintain MAP of greater than 65 mmHg for adequate end organ perfusion -LFTs trending down, continue to monitor Bilirubin is within normal limits (10) Elevated troponin: Code(s): R79.89 - Other specified abnormal findings of blood chemistry Status: Acute Assessment and Plan: Elevated troponin could be related to polysubstance abuse -will trend troponin -check echocardiogram Plan DVT prophylaxis: SCDs Stress ulcer prophylaxis: Not indicated Nutrition: Regular diet Code status full code This dictation may have been done utilizing a voice recognition system. Attempts have been made to correct error
[2023-11-10 14:01] VITALS: BP 131/80; PULSE 92; RESP 15; TEMP 36.4; O2SAT 97
[2023-11-10 15:56] LABS: Add Urine Microscopic? NO; Appearance Urine Clear (Clear); Bilirubin Urine Negative (Negative); Blood Urine Negative (Negative); Color Urine Yellow (Yellow); Glucose Urine UA Negative (Negative); Ketones Urine Negative (Negative); Leukocyte Esterase Ur Negative LEU/UL (Negative); Nitrate Urine Negative (Negative); Protein Urine Negative (Negative); Urobilinogen Urine 0.2 mg/dL (<2.0); pH Urine 8.5 (5.0-9.0)
[2023-11-10] MEDS: AZITHROMYCIN 500 MG/NS 250 ML 500 MG/250 ML BAG 250 MG IVPB (20:38)
[2023-11-11] VITALS: BP 126/85; PULSE 92; RESP 20; TEMP 36.6; O2SAT 97
[2023-11-11] MEDS: PIPERACILLIN/TAZ 4.5G/NS 100ML 4.5 GM/100 ML BAG IVPB ×4 (00:15→17:27)
[2023-11-11 05:29] LABS: Basophils Absolute Auto 0.1 K/mm3 (0.0-0.1); Basophils Percent Auto 0.8 % (0.2-1.2); Eosinophils Absolute Auto 0.8 K/mm3 (0-0.3); Eosinophils Percent Auto 12.6 % (0-4.4); Hematocrit 37.7 % (42.0-52.0); Hemoglobin 12.5 g/dL (14.0-18.0); Immature Granulocyte Absolute 0.02 K/mm3 (0.00-0.031); Immature Granulocyte Percent A 0.3 % (0-0.5); Lymphocytes Absolute Auto 1.35 K/mm3 (0.9-3.2); Lymphocytes Percent Auto 20.3 % (18.3-44.2); Mean Corpuscular HGB Conc 33.2 g/dl (32-36); Mean Corpuscular Hemoglobin 29.8 pg (26-34); Mean Platelet Volume 8.9 fl (7.4-10.4); Monocytes Absolute Auto 0.5 K/mm3 (0.1-0.6); Monocytes Percent Auto 7.7 % (2.6-8.5); Neutrophils Absolute Auto 3.9 K/mm3 (1.3-6.7); Neutrophils Percent Auto 58.3 % (45.5-73.1); Platelet Count Result 230 k/mm3 (150-375); Red Blood Count 4.19 M/mm3 (4.6-6.20); Red Cell Distribution Width 13.4 % (11.5-14.5); White Blood Count 6.7 K/mm3 (4.5-10.0)
[2023-11-11 05:43] LABS: Alanine Aminotransferase 268 U/L (6-50); Albumin Level 3.3 g/dL (3.5-5.1); Alkaline Phosphatase 60 U/L (38-126); Anion Gap 5 mmol/L (4-12); Aspartate Amino Transferase 180 U/L (17-59); Bilirubin,Total 0.6 mg/dL (0.2-1.3); Blood Urea Nitrogen 15 mg/dL (9-20); Calcium 8.6 mg/dL (8.4-10.2); Carbon Dioxide 28 mmol/L (22-30); Chloride 107 mmol/L (98-107); Estimated CRCL calculation 91 ml/min; Estimated Glomerular Filt Rate > 60; Glucose 91 mg/dL (65-110); Magnesium 1.9 mg/dL (1.6-2.3); Phosphorus 3.4 mg/dL (2.5-4.5); Potassium 3.9 mmol/L (3.4-5.0); Sodium 140 mmol/L (137-145)
[2023-11-11 06:54] VITALS: BP 132/92; PULSE 78; RESP 20; TEMP 36.6; O2SAT 97
[2023-11-11 08:29] LABS: Creatine Kinase 3091 U/L (55-170)
--- NOTE | 2023-11-11 09:06 | P.PNNP_ITS ---
Progress Note: A&P Assessment and Plan (1) Acute kidney injury: Code(s): N17.9 - Acute kidney failure, unspecified Status: Acute Assessment and Plan: * Acute kidney injury. * Renal sonogram is normal. * due to several issues: * rhabdomyolysis * possible prerenal factors * polysubstance abuse * relative hypotension * Creatinine is improved to normal * CPK and liver enzymes are both down. * Urine from yesterday showed pH of 8. It also shows trace blood but no red cells * He is getting fluids at 75cc an hour. If he eats today he can probably get this stopped. (2) Acute hyperkalemia: Code(s): E87.5 - Hyperkalemia Status: Acute Assessment and Plan: * Probably due to rhabdo acidosis and MAURO * Resolved (3) Rhabdomyolysis: Code(s): M62.82 - Rhabdomyolysis Status: Acute Assessment and Plan: * as noted by serial CPKs > 16,000 * on IVFs * CK improving (4) Pneumonia: Code(s): J18.9 - Pneumonia, unspecified organism Status: Acute Assessment and Plan: * as noted by admission imaging * suspicion falls on possible aspiration given admission history * follow culture data * on Zosyn * No shortness of breath. (5) Lactic acidosis: Code(s): E87.20 - Acidosis, unspecified Status: Acute Assessment and Plan: * due to hypovolemia, hypotension, and rhabo * Lactic acid is now normal * Anion gap improved to normal (6) Transaminitis: Code(s): R74.01 - Elevation of levels of liver transaminase levels Status: Acute Assessment and Plan: * due to hypovolemia/hypotension, polysubstance abuse, alcoholism, shock liver, but most likely rhabdo * AST and ALT are improving (7) Polysubstance abuse: Code(s): F19.10 - Other psychoactive substance abuse, uncomplicated Status: Chronic Assessment and Plan: * urine tox screen was positive for amphetamines * known history of heroin and opiate abuse * responded to Narcan when givenby EMS as well as in ER * Improved mentation Subjective Date/time seen: 11/11/23 09:06 Interval history: Weight is feeling better. He is more awake today. Exam Narrative: WDWN gentleman in NAD skin no rash or subQ nodules head ncat lungs clear bilateral cor reg no rub or gallop abd BS+ nontender and soft ext no edema. Objective Data Vital Signs Vital Signs: Vital Signs - 24 hr 11/10/23 10:00 11/10/23 14:01 11/11/23 00:00 Temperature 97.5 F L 97.9 F Pulse Rate 92 92 Respiratory Rate 15 20 Blood Pressure 131/80 126/85 Pulse Oximetry 96 97 97 Oxygen Delivery Room Air 11/10/23 20:00 11/11/23 06:54 Temperature 97.8 F Pulse Rate 78 Respiratory Rate 20 Blood Pressure 132/92 H Pulse Oximetry 97 Oxygen Delivery Room Air Intake/Output Intake/Output: Intake & Output 11/08/23 11/09/23 11/10/23 11/11/23 23:59 23:59 23:59 23:59 Intake Total 4238.3 4720 3341.3 860 Output Total 1250 4700 3000 1600 Balance 2988.3 20 341.3 -740 Meds/Results Medications: Active Medications Generic Name Dose
--- NOTE | 2023-11-11 09:06 | PM.PNNEP ---
Progress Note: A&P Assessment and Plan (1) Acute kidney injury: Code(s): N17.9 - Acute kidney failure, unspecified Status: Acute Assessment and Plan: Acute kidney injury. Renal sonogram is normal. due to several issues: rhabdomyolysis possible prerenal factors polysubstance abuse relative hypotension Creatinine is improved to normal CPK and liver enzymes are both down. Urine from yesterday showed pH of 8. It also shows trace blood but no red cells He is getting fluids at 75cc an hour. If he eats today he can probably get this stopped. (2) Acute hyperkalemia: Code(s): E87.5 - Hyperkalemia Status: Acute Assessment and Plan: Probably due to rhabdo acidosis and MAURO Resolved (3) Rhabdomyolysis: Code(s): M62.82 - Rhabdomyolysis Status: Acute Assessment and Plan: as noted by serial CPKs > 16,000 on IVFs CK improving (4) Pneumonia: Code(s): J18.9 - Pneumonia, unspecified organism Status: Acute Assessment and Plan: as noted by admission imaging suspicion falls on possible aspiration given admission history follow culture data on Zosyn No shortness of breath. (5) Lactic acidosis: Code(s): E87.20 - Acidosis, unspecified Status: Acute Assessment and Plan: due to hypovolemia, hypotension, and rhabo Lactic acid is now normal Anion gap improved to normal (6) Transaminitis: Code(s): R74.01 - Elevation of levels of liver transaminase levels Status: Acute Assessment and Plan: due to hypovolemia/hypotension, polysubstance abuse, alcoholism, shock liver, but most likely rhabdo AST and ALT are improving (7) Polysubstance abuse: Code(s): F19.10 - Other psychoactive substance abuse, uncomplicated Status: Chronic Assessment and Plan: urine tox screen was positive for amphetamines known history of heroin and opiate abuse responded to Narcan when givenby EMS as well as in ER Improved mentation Subjective Date/time seen: 11/11/23 09:06 Interval history: Weight is feeling better. He is more awake today. Exam Narrative: WDWN gentleman in NAD skin no rash or subQ nodules head ncat lungs clear bilateral cor reg no rub or gallop abd BS+ nontender and soft ext no edema. Objective Data Vital Signs Vital Signs: Vital Signs - 24 hr 11/10/23 10:00 11/10/23 14:01 11/11/23 00:00 Temperature 97.5 F L 97.9 F Pulse Rate 92 92 Respiratory Rate 15 20 Blood Pressure 131/80 126/85 Pulse Oximetry 96 97 97 Oxygen Delivery Room Air 11/10/23 20:00 11/11/23 06:54 Temperature 97.8 F Pulse Rate 78 Respiratory Rate 20 Blood Pressure 132/92 H Pulse Oximetry 97 Oxygen Delivery Room Air Intake/Output Intake/Output: Intake & Output 11/08/23 11/09/23 11/10/23 11/11/23 23:59 23:59 23:59 23:59 Intake Total 4238.3 4720 3341.3 860 Output Total 1250 4700 3000 1600 Balance 2988.3 20 341.3 -740 Meds/Results Medications: Active Medications Generic Name Dose Route Start Last Admin Trade Name Freq PRN Reason Stop Dose Admin Clonazepam 0.5 mg 11/08/23 03:03 Clonazepam (*Crx) 0.5 Mg Tablet PO TID PRN Anxiety Dextrose 12.5 gm 11/07/23 23:25 Dextrose 50% 25 Gm/50 Ml Syringe IV PUSH PRN PRN Hypoglycemia Protocol Gabapentin 300 mg 11/08/23 09:00 11/10/23 17:37 Gabapentin 300 Mg Capsule PO 300 mg TID MGIUEL Administration Glucose 15 gm 11/07/23 23:25 Glucose Oral Gel 15 Gm Of Glucse In 37.5 Gm Tube PO PRN PRN Hypoglycemia Protocol Azithromycin 500 mg in 250 mls @ 250 mls/hr 11/08/23 22:00 11/10/23 20:38 Zithromax IVPB 250 mls/hr Q24H MIGUEL Administration Dextrose 1,000 mls @ 100 mls/hr 11/07/23 23:25 Dextrose 5% 1,000 Ml IVPB PRN PRN Hypoglycemia Protocol Piperacillin Sod/Tazobactam Sod 4.5 gm in 100 mls @ 200 mls/hr 0
[2023-11-11 09:40] VITALS: O2SAT 95
[2023-11-11] MEDS: OLANZapine 5 MG TABLET 15 MG PO (09:42)
[2023-11-11] MEDS: THIAMINE HCL 200 MG/2 ML VIAL 100 MG IV PUSH (09:43)
[2023-11-11] MEDS: GABAPENTIN 300 MG CAPSULE PO ×3 (09:43→17:27)
--- NOTE | 2023-11-11 14:17 | P.PNIM_ITS ---
Progress Note: A&P Assessment and Plan (1) Acute kidney injury: Code(s): N17.9 - Acute kidney failure, unspecified Status: Acute Assessment and Plan: Acute kidney injury likely related to rhabdomyolysis, hypokalemia, substance abuse -patient has been adequately fluid-resuscitated -continue bicarb infusion for now, will obtain BMP later this evening and may switch to LR or normal saline -urine output has been adequate, creatinine trending down -continue to monitor renal function, electrolytes, CK levels, urine output -CT scan abdomen and pelvis did not show any hydronephrosis -appreciate nephrology following the patient (2) Acute hyperkalemia: Code(s): E87.5 - Hyperkalemia Status: Acute Assessment and Plan: Acute hyperkalemia likely a to metabolic acidosis, acute kidney injury, rhabdomyolysis -hyperkalemia was treated aggressively as his potassium level was 7.1 on admission -potassium levels this morning have normalized -, continue maintenance IV fluids continue monitoring - (3) Pneumonia: Code(s): J18.9 - Pneumonia, unspecified organism Status: Acute Assessment and Plan: Chest x-ray showed left upper and lower lobe pneumonia, atypical versus Viral pneumonia should be considered -likely aspiration pneumonia [place] had responsive -continue Zosyn and Azithromycin -currently on room air monitor cultures (4) Rhabdomyolysis: Code(s): M62.82 - Rhabdomyolysis Status: Acute Assessment and Plan: Adequately fluid-resuscitated, continue maintenance IV fluids with sodium bicarb -obtained BMP later this evening and will switch to LR or normal saline if his CO2 is significantly elevated -CK 3091 down from >73209 Continue IVF and continue monitoring nephrology following (5) Polysubstance abuse: Code(s): F19.10 - Other psychoactive substance abuse, uncomplicated Status: Chronic Assessment and Plan: Urine tox screen was positive for amphetamines -patient does take heroin, opiates -responded to Narcan when he was found by EMS. Was again given Narcan in the ER to which he responded. -currently is awake, alert, oriented (6) Schizoaffective disorder: Qualifiers: Schizoaffective disorder type: bipolar Qualified Code(s): F25.0 - Schizoaffective disorder, bipolar type Code(s): F25.9 - Schizoaffective disorder, unspecified Status: Chronic Assessment and Plan: Continue olanzapine, clonazepam (7) Lactic acidosis: Code(s): E87.20 - Acidosis, unspecified Status: Acute Assessment and Plan: Adequately fluid-resuscitated most likely related to rhabdomyolysis, possible hypovolemia/hypotension -trending down, will continue to monitor (8) Alcoholism: Code(s): F10.20 - Alcohol dependence, uncomplicated Status: Chronic Assessment and Plan: Patient with history of alcoholism, alcohol levels on admission were within normal limits -will watch for withdrawal (9) Transaminitis: Code(s): R74.01 - Elevation of levels of liver transaminase levels Status: Acute Assessment and Plan: Significantly elevated LFTs likely related to hypovolemia/hypotension, polysubstance abuse, alcoholism, shock liver -adequately fluid-resuscitated, maintain MAP of greater than 65 mmHg for adequate end organ perfusion -LFTs trending down, continue to monitor Bilirubin is within normal limits (10) Elevated troponin: Code(s): R79.89 - Other specified abnormal findings of blood cata
[2023-11-11 14:30] VITALS: BP 118/85; PULSE 103; RESP 16; TEMP 36.3; O2SAT 95
[2023-11-11] MEDS: traZODone HCL 50 MG TABLET PO (21:12)
[2023-11-11] MEDS: AZITHROMYCIN 500 MG/NS 250 ML 500 MG/250 ML BAG 250 MG IVPB (21:12)
[2023-11-11] MEDS: clonazePAM (*CRX) 0.5 MG TABLET PO (21:12)
[2023-11-12] VITALS: BP 109/84; PULSE 76; RESP 18; TEMP 36.5; O2SAT 96
[2023-11-12] MEDS: PIPERACILLIN/TAZ 4.5G/NS 100ML 4.5 GM/100 ML BAG IVPB ×2 (00:23→06:24)
[2023-11-12] MEDS: SODIUM CHLORIDE 0.9% IV 1,000 ML 75 ML IV CONT (01:45)
[2023-11-12 05:03] VITALS: BP 126/85; PULSE 76; RESP 18; TEMP 36.6; O2SAT 97
[2023-11-12 05:36] LABS: Basophils Absolute Auto 0.1 K/mm3 (0.0-0.1); Basophils Percent Auto 0.7 % (0.2-1.2); Eosinophils Absolute Auto 0.7 K/mm3 (0-0.3); Eosinophils Percent Auto 8.9 % (0-4.4); Hematocrit 38.7 % (42.0-52.0); Hemoglobin 12.6 g/dL (14.0-18.0); Immature Granulocyte Absolute 0.05 K/mm3 (0.00-0.031); Immature Granulocyte Percent A 0.6 % (0-0.5); Lymphocytes Absolute Auto 1.57 K/mm3 (0.9-3.2); Lymphocytes Percent Auto 18.9 % (18.3-44.2); Mean Corpuscular HGB Conc 32.6 g/dl (32-36); Mean Corpuscular Volume 89.2 fl (80-100); Mean Platelet Volume 8.7 fl (7.4-10.4); Monocytes Absolute Auto 0.7 K/mm3 (0.1-0.6); Monocytes Percent Auto 8.3 % (2.6-8.5); Neutrophils Absolute Auto 5.2 K/mm3 (1.3-6.7); Neutrophils Percent Auto 62.6 % (45.5-73.1); Platelet Count Result 259 k/mm3 (150-375); Red Blood Count 4.34 M/mm3 (4.6-6.20); Red Cell Distribution Width 13.4 % (11.5-14.5); White Blood Count 8.3 K/mm3 (4.5-10.0)
[2023-11-12 05:55] LABS: Alanine Aminotransferase 222 U/L (6-50); Albumin Level 3.5 g/dL (3.5-5.1); Alkaline Phosphatase 57 U/L (38-126); Anion Gap 7 mmol/L (4-12); Aspartate Amino Transferase 115 U/L (17-59); Bilirubin,Total 0.4 mg/dL (0.2-1.3); Blood Urea Nitrogen 11 mg/dL (9-20); Calcium 8.8 mg/dL (8.4-10.2); Carbon Dioxide 25 mmol/L (22-30); Chloride 108 mmol/L (98-107); Creatine Kinase 1446 U/L (55-170); Estimated CRCL calculation 93 ml/min; Estimated Glomerular Filt Rate > 60; Glucose 93 mg/dL (65-110); Magnesium 1.9 mg/dL (1.6-2.3); Phosphorus 3.7 mg/dL (2.5-4.5); Potassium 3.7 mmol/L (3.4-5.0); Sodium 140 mmol/L (137-145)
[2023-11-12] MEDS: THIAMINE HCL 200 MG/2 ML VIAL 100 MG IV PUSH (08:57)
[2023-11-12] MEDS: GABAPENTIN 300 MG CAPSULE PO ×2 (08:57→12:00)
[2023-11-12] MEDS: OLANZapine 5 MG TABLET 15 MG PO (08:58)
[2023-11-12 09:00] VITALS: O2SAT 97
[2023-11-12 09:08] LABS: Add Urine Microscopic? NO; Appearance Urine Clear (Clear); Bilirubin Urine Negative (Negative); Blood Urine Negative (Negative); Color Urine Yellow (Yellow); Glucose Urine UA Negative (Negative); Ketones Urine Negative (Negative); Leukocyte Esterase Ur Negative LEU/UL (Negative); Nitrate Urine Negative (Negative); Protein Urine Negative (Negative); Specific Grav Ur 1.015 (1.001-1.035); Urobilinogen Urine 0.2 mg/dL (<2.0); pH Urine 7.5 (5.0-9.0)
--- NOTE | 2023-11-12 10:02 | P.PNNP_ITS ---
Progress Note: A&P Assessment and Plan (1) Acute kidney injury: Code(s): N17.9 - Acute kidney failure, unspecified Status: Acute Assessment and Plan: * resolved * due to several issues: * rhabdomyolysis * possible prerenal factors * polysubstance abuse * relative hypotension * renal ultrasound normal * CPK and liver enzymes trending down * follow repeat labs and UOP (2) Acute hyperkalemia: Code(s): E87.5 - Hyperkalemia Status: Acute Assessment and Plan: * probably due to rhabdo, acidosis, and MAURO * resolved (3) Rhabdomyolysis: Code(s): M62.82 - Rhabdomyolysis Status: Acute Assessment and Plan: * as noted by serial CPKs > 16,000 * on IVFs * CK improving (4) Pneumonia: Code(s): J18.9 - Pneumonia, unspecified organism Status: Acute Assessment and Plan: * as noted by admission imaging * suspicion falls on possible aspiration given admission history * follow culture data - negative to date * on antibiotics (5) Transaminitis: Code(s): R74.01 - Elevation of levels of liver transaminase levels Status: Acute Assessment and Plan: * due to hypovolemia/hypotension, polysubstance abuse, alcoholism, shock liver, but most likely rhabdo * AST and ALT are improving (6) Polysubstance abuse: Code(s): F19.10 - Other psychoactive substance abuse, uncomplicated Status: Chronic Assessment and Plan: * urine tox screen was positive for amphetamines * known history of heroin and opiate abuse * responded to Narcan when givenby EMS as well as in ER * Improved mentation Not much else to add -- will continue to follow from a distance. Subjective Date/time seen: 11/12/23 10:02 Interval history: Follow-up for acute kidney injury/acute renal failure. Chart reviewed since last seen -- renal function is back to baseline with downtrending CPK level as well; no apparent distress noted; no issues/events overnight or earlier this morning. Exam Narrative: General: WD/WN male in NAD Heart: normal S1 and S2; no rub Lungs: clear to auscultation Abdomen: soft, nontender, nondistended, positive bowel sounds Extremities: no cyanosis or clubbing; no edema Skin: warm and dry Objective Data Vital Signs Vital Signs: Vital Signs Temp Pulse Resp BP Pulse Ox O2 Del Method 11/12/23 05:03 97.8 F 76 18 126/85 97 11/12/23 00:00 97.7 F 76 18 109/84 96 11/11/23 20:00 Room Air 11/11/23 14:30 97.3 F L 103 H 16 118/85 95 Intake/Output Intake/Output: Intake & Output 11/09/23 11/10/23 11/11/23 11/12/23 23:59 23:59 23:59 23:59 Intake Total 4720 3591.3 4133.8 410 Output Total 4700 3000 1600 1300 Balance 20 591.3 2533.8 -890 Meds/Results Medications: Active Medications Generic Name Dose Route Start Last Admin Trade Name Freq PRN Reason Stop Dose Admin Clonazepam 0.5 mg 11/08/23 03:03 11/11/23 21:12 Clonazepam (*Crx) 0.5 Mg Tablet PO 0.5 mg TID PRN Administration Anxiety Dextrose 12.5 gm 11/07/23 23:25 Dextrose 50% 25 Gm/50 Ml Syringe IV PUSH PRN
--- NOTE | 2023-11-12 10:02 | PM.PNNEP ---
Progress Note: A&P Assessment and Plan (1) Acute kidney injury: Code(s): N17.9 - Acute kidney failure, unspecified Status: Acute Assessment and Plan: resolved due to several issues: rhabdomyolysis possible prerenal factors polysubstance abuse relative hypotension renal ultrasound normal CPK and liver enzymes trending down follow repeat labs and UOP (2) Acute hyperkalemia: Code(s): E87.5 - Hyperkalemia Status: Acute Assessment and Plan: probably due to rhabdo, acidosis, and MAURO resolved (3) Rhabdomyolysis: Code(s): M62.82 - Rhabdomyolysis Status: Acute Assessment and Plan: as noted by serial CPKs > 16,000 on IVFs CK improving (4) Pneumonia: Code(s): J18.9 - Pneumonia, unspecified organism Status: Acute Assessment and Plan: as noted by admission imaging suspicion falls on possible aspiration given admission history follow culture data - negative to date on antibiotics (5) Transaminitis: Code(s): R74.01 - Elevation of levels of liver transaminase levels Status: Acute Assessment and Plan: due to hypovolemia/hypotension, polysubstance abuse, alcoholism, shock liver, but most likely rhabdo AST and ALT are improving (6) Polysubstance abuse: Code(s): F19.10 - Other psychoactive substance abuse, uncomplicated Status: Chronic Assessment and Plan: urine tox screen was positive for amphetamines known history of heroin and opiate abuse responded to Narcan when givenby EMS as well as in ER Improved mentation Not much else to add -- will continue to follow from a distance. Subjective Date/time seen: 11/12/23 10:02 Interval history: Follow-up for acute kidney injury/acute renal failure. Chart reviewed since last seen -- renal function is back to baseline with downtrending CPK level as well; no apparent distress noted; no issues/events overnight or earlier this morning. Exam Narrative: General: WD/WN male in NAD Heart: normal S1 and S2; no rub Lungs: clear to auscultation Abdomen: soft, nontender, nondistended, positive bowel sounds Extremities: no cyanosis or clubbing; no edema Skin: warm and dry Objective Data Vital Signs Vital Signs: Vital Signs Temp Pulse Resp BP Pulse Ox O2 Del Method 11/12/23 05:03 97.8 F 76 18 126/85 97 08/12/24 00:00 97.7 F 76 18 109/84 96 11/11/23 20:00 Room Air 11/11/23 14:30 97.3 F L 103 H 16 118/85 95 Intake/Output Intake/Output: Intake & Output 11/09/23 11/10/23 11/11/23 11/12/23 23:59 23:59 23:59 23:59 Intake Total 4720 3591.3 4133.8 410 Output Total 4700 3000 1600 1300 Balance 20 591.3 2533.8 -890 Meds/Results Medications: Active Medications Generic Name Dose Route Start Last Admin Trade Name Freq PRN Reason Stop Dose Admin Clonazepam 0.5 mg 11/08/23 03:03 11/11/23 21:12 Clonazepam (*Crx) 0.5 Mg Tablet PO 0.5 mg TID PRN Administration Anxiety Dextrose 12.5 gm 11/07/23 23:25 Dextrose 50% 25 Gm/50 Ml Syringe IV PUSH PRN PRN Hypoglycemia Protocol Gabapentin 300 mg 11/08/23 09:00 11/12/23 12:00 Gabapentin 300 Mg Capsule PO 300 mg TID MIGUEL Administration Glucose 15 gm 11/07/23 23:25 Glucose Oral Gel 15 Gm Of Glucse In 37.5 Gm Tube PO PRN PRN Hypoglycemia Protocol Azithromycin 500 mg in 250 mls @ 250 mls/hr 11/08/23 22:00 11/11/23 21:12 Zithromax IVPB 250 mls/hr Q24H MIGUEL Administration Dextrose 1,000 mls @ 100 mls/hr 11/07/23 23:25 Dextrose 5% 1,000 Ml IVPB PRN PRN Hypoglycemia Protocol Piperacillin Sod/Tazobactam Sod 4.5 gm in 100 mls @ 200 mls/hr 11/08/23 11:00 11/12/23 11:56 Zosyn 4.5 Gm/Ns 100 Ml IVPB Not Given Q6HR MIGUEL Olanzapine 15 mg 11/08/23 09:00 11/12/23 08:58 Olanzapine 5 Mg Tablet PO 15 mg DAILY MIGUEL Administration Th
--- NOTE | 2023-11-12 10:39 | PM.DS ---
DS: Admitting Diagnosis Discharge Date 11/12/23 Admitting Diagnosis Acute kidney failure DS: Discharge Diagnosis Discharge Diagnosis (1) Rhabdomyolysis: Code(s): M62.82 - Rhabdomyolysis Status: Acute DS: Summary Hospital Course Hospital Course: 28-year-old male with past medical history of alcoholism, a narcotic abuse, methamphetamine abuse, schizoaffective disorder, bipolar disorder and generalized anxiety who presented to the ER after being [place]. The patient was found sitting on a bench by the bike trail with pinpoint pupils. He received 0.4 of Narcan in the field without improvement in his level of confusion. The patient admitted to using fentanyl or heroin yesterday. The patient's urine drug screen positive for amphetamines. The patient is alert oriented x3 currently. Speech is slow. He has a flat affect. He reports that he does not know when he last used drugs. He is restless in scratching at his skin. He has multiple areas of pinpoint lesions on his extremities. He reports that he lost some time and does not know the exact events of what happened today. He reports that his legs hurt terribly. He states that he [place] and [place] and broke his legs. However the patient is able to pick his legs up off the bed in kicks them up and down freely. He is requesting pain medications for his severe leg pain. On exam patient bladder was markedly distended. The patient had greater than 650 mL on bladder scan and was able to void about 550 mL. He denies any dysuria. He is a poor historian. Source of information obtained from ER physician report, review of past medical records and patient report. The patient received 3 L normal saline in the ER. He was started on a sodium bicarb drip at 150 mL an hour. He also received Rocephin, azithromycin, vancomycin and Flagyl was added. CT of the abdomen pelvis demonstrated bilateral lower lobe pneumonias, chest x-ray demonstrated upper lobe pneumonia, blood cultures were obtained. MRSA screen was positive. Labs demonstrated acute kidney injury, marked rhabdomyolysis, transaminitis and acute hyperkalemia. The patient received low, sodium bicarb, calcium in the ER due to hyperkalemia. Repeat labs demonstrated persistent hyperkalemia and I subsequently ordered repeat hyperkalemia treatment protocol. Patient was hypoxic on arrival to the ER and initially was requiring 6 L of oxygen. Oxygen has subsequently been weaned down to 2 L. Patient was managed for Acute kidney failure, pneumonia possible aspiration pneumonia and Rhabdomyolysis. Hyperkalemia was noted on admission. Patient was managed with IVF and Antibiotics, renal function normal now, K normal, patient completed 5 days of antibiotics. CK >17561 on admission and 1446 today. See topical management Assessment and Plan (1) Acute kidney injury, resolved Acute kidney injury likely related to rhabdomyolysis, hypokalemia, substance abuse s/p IVF -continue to monitor renal function, electrolytes, CK levels, urine output -CT scan abdomen and pelvis did not show any hydronephrosis Cr 1.1 today, 2.9 on admission appreciate nephrology following the patient (2) Acute hyperkalemia: Acute hyperkalemia likely a to metabolic acidosis, acute kidney injury, rhabdomyolysis -hyperkalemia was treated aggressively as his potassium level was 7.1 on admission s/p IVF, K 3.7 today - (3) Pneumonia: Chest x-ray showed left upper and lower lobe pneumonia, atypical versus Viral pneumonia should be considered -likely aspiration pneumonia as he [place] in the bike trail had responsive -Completed 5 days Zosyn and Azithromycin -currently on room air discharged 2 more days of Augmentin (4) Rhabdomyolysis: Adequately fluid-resuscitated, continue maintenance IV fluids with sodium bicarb -obtained BMP later this evening and will switch to LR or normal saline if his CO2 is significantly elevate
== END 2023-11-12 16:54 | disposition home or self-care (01) | DRG 720 ==
LOC: ANHED 20:01 → ANHICU 11-08 01:09 → ANH3MED 11-08 15:46
PROVIDERS: Internal Medicine; Internal Medicine Nephrology; Admitting Provider Internal Medicine; Emergency Provider Emergency Medicine; Visit Provider Internal Medicine
DX: A41.9 Sepsis, unspecified organism (principal); J18.9 Pneumonia, unspecified organism; R65.20 Severe sepsis without septic shock; J96.01 Acute respiratory failure with hypoxia; J69.0 Pneumonitis due to inhalation of food and vomit; M62.82 Rhabdomyolysis; F31.9 Bipolar disorder, unspecified; K72.00 Acute and subacute hepatic failure without coma; F25.9 Schizoaffective disorder, unspecified; N17.9 Acute kidney failure, unspecified; E87.5 Hyperkalemia; F19.10 Other psychoactive substance abuse, uncomplicated; F15.10 Other stimulant abuse, uncomplicated; F10.20 Alcohol dependence, uncomplicated; F41.1 Generalized anxiety disorder; Z20.822 Contact with and (suspected) exposure to COVID-19; E87.6 Hypokalemia
CPT/HCPCS: 36415; 36600; 70450; 71045; 74176; 76775; 80048; 80053; 80069; 80074; 80202; 80307; 81001; 81003; 82550; 82805; 83605; 83735; 83880; 84100; 84439; 84443; 84480; 84484; 85025; 85610; 85730; 87040; 87637; 87641; 93005; 93306; 94640; 96361; 96374; 96375; 96376; 99285; A9270; J0456; J0612; J0696; J1815; J1836; J2310; J2543; J3370; J3411; J7030; J7070

== ENCOUNTER → 2024-03-13 15:48 | Emergency (ER) | payer SELFPAY | END | disposition left against medical advice (07) | DX: Z53.21 Procedure and treatment not carried out due to patient leaving prior to being seen by health care provider (principal) | CPT/HCPCS: 99199 ==

== ENCOUNTER 2024-11-01 09:33 | Emergency (ER) | payer OTHER, SELFPAY ==
--- NOTE | ~2024-11-01 | XR_ITS ---
EXAMINATION: XR chest 2V DATE: 11/01/2024 10:27 INDICATION: Shortness of breath and tachycardia TECHNIQUE: PA and lateral views of the chest were obtained. COMPARISON: Chest radiograph dated 11/09/2023 FINDINGS: The lungs are clear with no focal airspace opacities, pulmonary edema, pleural effusion or pneumothor ax. The cardiomediastinal silhouette is normal. Visualized bones and soft tissues are unremarkable. IMPRESSION: 1. No acute cardiopulmonary disease. Reviewed, dictated and finalized at location A.
--- OUTSIDE RECORDS SUMMARY | 2024-11-01 09:36 | XMS_ITS | Referral Summary ---
Author Organization [facility] Address [address] [place] [address] Care Team Providers Care Jig Mill Operator Name Role Phone Gail Gregg Unavailable Unavailable No, Physician Primary Care Provider [phone] Allergies No known active allergies Medications gabapentin (NEURONTIN) 300 mg capsule Take 1 capsule (300 mg total) by mouth 3 (three) times a day 2 Active naloxone (NARCAN) 4 mg/actuation spray,non-aerosolI ndications:Moderat e opioid use disorder (HCC) Administer 1 spray into affected nostril(s) as needed for opioid reversal Call 911. Administer a single spray in one nostril. Repeat every 3 minutes as needed if no or minimal response. 2 each 3 Active ondansetron ODT (ZOFRAN-ODT) 4 mg disintegrating tablet Take 1 tablet (4 mg total) by mouth every 8 (eight) hours as needed for nausea or vomiting 20 tablet 3 Active clonazePAM (KlonoPIN) 0.5 mg tablet Take 1 tablet (0.5 mg total) by mouth 3 (three) times a day as needed for anxiety 4 Active OLANZapine (ZyPREXA) 15 mg tablet Take 1 tablet (15 mg total) by mouth nightly 4 Active traZODone (DESYREL) 50 mg tablet Take 1 tablet (50 mg total) by mouth nightly 4 Active Active Problems Problem Noted Date Diagnosed Date Anemia 01/20/2024 Accidental drug ingestion, initial encounter Rhabdomyolysis 01/16/2024 Accidental drug overdose, initial encounter 12/31 Assessment & Plan (01/16/2024 12:33 AM CDT): Patient was found unconscious by his mom upstairs in his room. She started to give compressions and intranasal Narcan and contacted EMS. Full resuscitation with 16 mg of Narcan was achieved prior to arrival in the ED where he received a 2 L fluid bolus. CXR is normal without acute findings on arrival in the ED. patient not a reliable historian. Reports fentanyl use but was not forthcoming initially. Denies SI and is adamant that he did not try to harm himself. Leukocytosis likely reactive 2/2 to compressions/respiratory depression for an undetermined amount of time. BG is also elevated; likely stress response from cortisol; will r/o underlying endocrine abnormalities with A1C. Asked pt if he is interested in speaking with [facility] re: rehab/recovery to which he responded I'll think about it; Pre-contemplation phase. He has completed rehab in the past and has overdosed 48 hours after being discharged from the facility. 07/2022. Was previously maintained on suboxone 4-1. - O2 monitoring/capnography - monitor for development of ARDS/post-OD pulmonary edema - warm handoff consulted - Check morning CK and WBCs Severe protein-calorie malnutrition 08/05/2022 Psychosis, unspecified psychosis type 08/04/2022 Accidental carbamazepine poisoning, initial enco unter 12/14/2021 Assessment & Plan (12/26/2021 11:23 AM CDT): Stable, improved; patient reports axonal intake of multiple doses Carbamazepine has been discontinued from patient medicine list Will continue to monitor Gastroesophageal reflux disease without esophagi tis 06/02/2021 Assessment & Plan (01/16/2024 12:30 AM CDT): Known hx, chronic, stable. - Protonix while inpatient. Assessment & Plan (05/09/2022 8:[address]STRUCTION INSPECTOR): Stable, well controlled; continue prilosec 40 mg daily Assessment & Plan (05/02/2022 5:[address] CONSTRUCTION INSPECTOR): Stable, well controlled; no significant side effects from medication Continue omeprazole 40 mg daily Assessment & Plan (04/04/2022 5:[address] CONSTRUCTION INSPECTOR): Will, well controlled; continue omeprazole 40 mg daily Assessment & Plan (09/08/2021 12:19 PM CDT): Stable, well controlled; continue omeprazole 40 mg daily Assessment & Plan (07/04/2021 12:52 PM CDT): Stable, well controlled; continue prednisone 40 mg daily Assessment & Plan (06/02/2021 4:[address] CONSTRUCTION INSPECTOR): Patient continues to have regular acid reflux; will start omeprazole 40 mg daily Psychophysiological insomnia 02/17/2021 Assessment & Plan (06/02/2021 4:[address] CONSTRUCTION INSPECTOR): Stable, improving control; continue amitriptyline 50 mg nightly Assessment & Plan (05/17/2021 1:[address] CONSTRUCTION INSPECTOR): Continue amitriptyline 50 mg at bedtime Assessment & Plan (02/17/2021 4:[address] CONSTRUCTION INSPECTOR): Unclear etiology, patient reports no substance use; will start amitriptyline 25 mg nightly, work closely with patient to titrate dose; encouraged patient to engage with psychiatry services Moderate opioid use disorder 11/23/2020 Assessment & Plan (08/17/2022 4:12 PM CDT): Not well controlled, urine drug screen from emergency room demonstrated positive amphetamine as well as fentanyl Patient reports he was recently in residential rehab, discharge at the end of July; but has continued use Patient denies use, saying he is not actively seeking substances Will have patient continue to engage with peer aircraft launch and recovery technician, patient may benefit from intensive outpatient therapies to continue residential teachings This time will continue buprenorphine 4 mg b.i.d. for risk reduction to reduce amount of substances use but patient will continue to monitor closely Assessment & Plan (05/09/2022 8:[address] CONSTRUCTION INSPECTOR): Not well controlled; continues to have some use; patient reports trying to avoid situations and places that trigger use; working to keep anxiety down Patient reports consistent use of suboxone UDS: positive for fentanyl; Buprenorphine negative with low levels of metabolite demonstrating inconsistent use Continue with suboxone 4 mg bid for harm reduction and continue to engage patient in behavioral changes Countinue to engage with PRS Assessment & Plan (05/02/2022 5:[address] CONSTRUCTION INSPECTOR): Improving, though still has positive urine drug screen; patient denies use of fentanyl in over 2 weeks; patient reports he has been taking medication regularly, has been having improvement in symptoms as he is able to visit with sister and grandmother over [place] Able to focus on improved aspects of life, has been to 1 meeting Continue buprenorphine 4 mg b.i.d.; encouraged patient to continue to engage with peer aircraft launch and recovery technician, as well as regular mutual support meetings Assessment & Plan (04/04/2022 5:[address] CONSTRUCTION INSPECTOR): Well controlled, improving; last urine drug screen positive for fentanyl, but patient denies use of any substances since last visit Patient reports that medicine and staying home are helping with symptoms Patient is interested in online mutual support groups, working on staying on schedule and changing mind set Continue buprenorphine 4 mg b.i.d. Assessment & Plan (02/28/2022 4:[address] CONSTRUCTION INSPECTOR): Not well controlled, patient continues to regularly use substances Patient reports that he has not been using any substances, has been trying to stay home to avoid use in places if use Not currently engaged with counseling and mutual support meetings, but living with mother at this time Will continue buprenorphine 4 mg b.i.d. for harm reduction to help reduce use of fentanyl continue to engage with patient for long-term treatment Last urine drug screen did demonstrate appropriate levels of buprenorphine and metabolite Assessment & Plan (02/05/2022 10:[address] CONSTRUCTION INSPECTOR): Not well controlled, recently admitted for overdose, though patient denies use of fentanyl Patient has been trying to stay home, prevention use, currently living with mother and her boyfriend Patient states that he has interest in working recovery, but has been a to no recent mutual support meetings Encouraged patient continue to engage with peer aircraft launch and recovery technician or developed long-term strategy for sobriety Given continued use, patient is not yet in to early remission; however given harm reduction with prescription of buprenorphine, will continue Suboxone prescriptions in order to attempt to reduce use of fentanyl and reduce risk of overdose Continue buprenorphine 4 mg b.i.d. in order to help patient remain engaged and developed plans for long-term recovery strategies Assessment & Plan (12/26/2021 11:24 AM CDT): Stable, improving; patient reports no use of any substances for the past 2-3 weeks; patient reports he has been staying home, trying to stay sober Patient reports he continues to have some cravings and desire to use Encouraged patient to engage with warm handoff program; will check urine drug screen today, if urine drug screen is negative from substances, will consider restarting Suboxone Assessment & Plan (09/08/2021 12:20 PM CDT): Not well controlled, patient continues to have multiple substances in urine drug screens, including amphetamines and cocaine and fentanyl Most recent drug screen had no buprenorphine in urine, but patient had been nearly 1 month since last visit Will continue buprenorphine 4 mg b.i.d. dosing at this time for harm reduction; work with warm handoff program for referral to higher level of care Assessment & Plan (08/25/2021 1:05 PM CDT): Not well controlled, patient has not had an appointment over a month; a sudden no refills of Suboxone that time Patient denies use of substances and loss month, those inconsistent Patient urine drug screens have been chronically positive for sepsis Encouraged patient, will likely benefit from injections Psychiatry, given possibly poorly-controlled mental health diagnosis as well as continued substance use At this time as part of harm reduction would continue with Suboxone prescription in order to reduce or minimize patient's use of substances Assessment & Plan (07/18/2021 11:40 AM CDT): Not well controlled, continues to have regular use fentanyl for urine drug screen; the patient denies use Patient not currently engaged in group meetings, looking for behavior health alternatives Patient reports no cravings to use desire for constipation Will continue buprenorphine 4 mg daily Will work with patient to engage with Addiction Psychiatry given patient's underlying schizophrenia may make treatment difficult Assessment & Plan (07/04/2021 12:51 PM CDT): Not well controlled, given underlying mental health concerns, would recommend referral to addiction psychiatrist Patient continues to regularly use fentanyl, the patient does deny substance use Patient is not currently engaged in mutual support meetings due to limited transportation Patient would like options close to would refer online At this time for risk reduction, would continue buprenorphine 4 mg daily Assessment & Plan (06/02/2021 4:[address] CONSTRUCTION INSPECTOR): Not well controlled, patient minimizes use, reports that he is not seek out substances, but noted to have consistent use based upon repeat positive fentanyl results and urine drug screens Patient is interested in tapering of Suboxone, feels that is not will decrease dose to 4 mg q.d. Patient will likely benefit from a higher level of care, patient working with [facility] handoff program for referral to [place] or [place] for more intensive care Assessment & Plan (05/17/2021 1:[address] CONSTRUCTION INSPECTOR): Not well controlled, patient continues to struggle with substance use, most recent urine drug screen was positive for amphetamines cocaine and fentanyl Patient denies any previous issues Will recommend patient follow-up with [facility] for continued counseling Follow-up in approximately 2 weeks given prior urine drug screen Continue buprenorphine 8 mg b.i.d., patient continues to struggle and has incomplete amount of knee Suboxone in urine drug screen, will review need for higher level of care Assessment & Plan (03/18/2021 2:[address] CONSTRUCTION INSPECTOR): Stable, well controlled; patient has had mixed results with urine drug screens with some positive fentanyl and past Patient denies use of any substances, has not been getting mutual support groups With recent use and drug screen was negative for all substances, appropriate ratio of buprenorphine to metabolite Will continue 8 mg b.i.d.; encouraged patient to engage with Community resources including mutual support groups Assessment & Plan (03/03/2021 2:[address] CONSTRUCTION INSPECTOR): Not well controlled, patient continues to have positive urine drug screens for fentanyl; patient denies use Will continue to engage with patient, encourage counseling through [facility] continue buprenorphine 8 mg b.i.d. as patient has positive buprenorphine levels Continue to work to engage patient understand continued use Assessment & Plan (02/17/2021 4:[address] CONSTRUCTION INSPECTOR): Stable, unclear about controlled; patient denies use of substances, however most recent urine drug screen is positive for cocaine and fentanyl Will continue to monitor with regular urine drug screens Encouraged complete cessation, and encouraged continued engagement with recovery counseling Continue buprenorphine 8 mg b.i.d. dosing Assessment & Plan (02/03/2021 3:38 PM CDT): Stable, improving control; patient reports no use of any substances last week Stable on buprenorphine 8 mg B.i.d.with no significant side effects Continue Suboxone 8 mg b.i.d. Encouraged patient to me to counseling, Engage with community resources including mutual support groups in order to help achieve sustained recovery Assessment & Plan (02/01/2021 4:12 PM CDT): Patient is tolerating Suboxone well, no significant cravings or withdrawal Has been trying to convert meetings Patient does report taking recent Percocet street; last urine drug screen was positive for fentanyl, patient also positive for amphetamines, the patient denies use Patient reports uses primarily related around stressors including grandmother Encouraged patient to work with counselor as well as mutual support groups in order to help with improved mechanisms for coping Assessment & Plan (01/20/2021 10:11 AM CDT): Stable, not well controlled Patient reports use of Percocet during recent episode of depression Encouraged patient to continue to work closely with counselor as well as mutual support groups in order to resolve new in healthier coping mechanisms S patient reports that he was using a mg daily strips, as less prescriptions written for only 14 strips patient did not understand he should follow-up in 1 week S patient reports he has been skipping doses previous to last urine drug screen, which was by buprenorphine was negative; had been trying to lose stop using medication Continue Buprenorphine 8 mg b.i.d. given concern for lukewarm urine drug sample as well as UDS negative for all substances as well as buprenorphine, concern for false urine sample; will continue to monitor closely, if concerns persist patient may require referral to higher level of care with observed urine samples Assessment & Plan (12/23/2020 10:29 AM CDT): Stable, improving control UDS remains positive for fentanyl and amphetamines; patient denies any current use Will continue to monitor is patient is longer in his recovery Continue buprenorphine 8 mg b.i.d.; Encouraged patient to be continue to engage in mutual support groups, discussion aircraft launch and recovery technician Assessment & Plan (12/16/2020 12:48 PM CDT): Stable, well controlled; patient reports a withdrawals or cravings Buprenorphine levels received after patient relate, patient negative fluid buprenorphine in mild urine drug screen; unable to address during visit Patient is beginning to get resolved in mutual support groups online At this time will continue buprenorphine 8 mg b.i.d.; recheck UDS today to evaluate for appropriate use of medication Assessment & Plan (12/09/2020 4:38 PM CDT): Stable, well controlled; patient denies use of any substances since last visit Has been to 1 NA meeting which provider to get experience No side effects with current dose of Suboxone, no cravings or withdrawal Will continue buprenorphine 8 mg b.i.d. dosing Follow-up in 1 week Encouraged patient to continue to engage with recovery coaching in mutual support groups Assessment & Plan (12/02/2020 12:46 PM CDT): Stable and well controlled No use of opioids since last visit No withdrawal or cravings on current dose of Suboxone Patient has been to 1 AA meeting, encouraged continued engagement review to support meetings Continue buprenorphine 8 mg b.i.d. dosing Assessment & Plan (11/23/2020 4:31 PM CDT): Stable, improved control on Suboxone for emergency department Will continue Suboxone 8 mg b.i.d. dosing for patient as he reports good mental and physical response to medication Will follow-up in 9 days for patient will meet with recovery counselor to help developed community were sources and recovery plan Leukocytosis 03/02/2020 Assessment & Plan (03/02/2020 6:[address] CONSTRUCTION INSPECTOR): WBC 13, with ANC 9.2. Afebrile, but tachycardic to 110s at admission. History of pericarditis. Not endorsing CP or any constitutional symptoms of infection. Increased RBC and plt, may be hemoconcentrated. If WBC does not resolve, consider further infectious work-up: HIV, RPR, UA, BCx. -Daily CBC -EKG -CTM Elevated serum creatinine 03/02/2020 Assessment & Plan (03/02/2020 6:[address] CONSTRUCTION INSPECTOR): Cr 1.08. Previous Cr in 2018 was 0.89. May be due to poor PO intake from disorganization. -q2 day BMP -CTM Schizophrenia, unspecified 01/18/2018 Assessment & Plan (08/17/2022 4:12 PM CDT): Not well controlled, patient recently admitted to hospital with episodes psychosis; continue Zyprexa 50 mg daily, amitriptyline 25 mg nightly, hydroxyzine 25 mg p.r.n. for anxiety Assessment & Plan (05/09/2022 8:[address] CONSTRUCTION INSPECTOR): Stable, patient follows with psychiatry for management of schizophrenia; conitinue current medications Assessment & Plan (02/05/2022 10:[address] CONSTRUCTION INSPECTOR): Stable, generally well controlled; follows with Dr. Olivia oswald in psychiatry for management of medications Has been doing well with current antipsychotics Continue amitriptyline 50 mg nightly, Zyprexa 10 mg daily Assessment & Plan (09/08/2021 12:20 PM CDT): Not well controlled, patient continues to have flat affect, as well as decreased slowed reaction Assessment & Plan (08/25/2021 1:04 PM CDT): Not well controlled, patient was generally inattentive during interview today; patient was not familiar with medications that were sent to pharmacy on August 01, 2021; patient is not familiar with medications he is currently taking Patient was inconsistent answers regarding substance use over the past month focus last visit per patient mother primarily manages prescription medications; Encouraged patient to bring medications and/or mother to clinic in order to discuss current medical therapies and ensure appropriate care Assessment & Plan (07/04/2021 12:52 PM CDT): Stable, patient continues to have withdrawal symptoms Continue olanzapine 10 mg daily, amitriptyline 25 mg at bedtime for sleep aid Assessment & Plan (01/18/2018 9:09 PM CDT): Assessment: Patient`s presentation is concerning for schizophrenia, panic disorder without agoraphobia, anxiety disorder, and unspecified depressive disorder complicated by methamphetamine use disorder. TREATMENT PLAN: 1. Mr. Sidney Gold will be admitted to the 3rd floor of [facility] for crisis stabilization, and he will be offered a safe, secure, structured, and supportive environment throughout the course of his hospitalization. 2. We initiated Seroquel po 50 mg q day, and po 100 mg qhs, Clonazepam po 0.5 mg tid prn for panic attacks, Hydroxyzine po 25 mg q.6 hours p.r.n. for anxiety, trazodone p.o. 50 mg at bedtime p.r.n. for insomnia, as well as comfort medications which will be administered on as needed basis. We discussed risks, benefits, alternatives, and adverse effects of newly started psychotropic medications with the patient who voiced understanding and gave consent. 3. We requested a medical consultation for physical examination to be done by the medical treatment team who will also provide treatment for the patient's medical comorbidities. 4. Patient is scheduled to participate actively in group and individual psychotherapy sessions so as to learn helpful coping and interpersonal skills to help him deal with his ongoing stressors. He will also attend chemical dependency session so as to learn helpful strategies that will help him stay away from methamphetamine or any other illicit drug and prevent methamphetamine or any other illicit drug use relapse. Case Management will be involved in the patient's care so as to touch base with patient's mother/grand mother/family/loved ones to obtain pertinent collateral information that will help us better appreciate history of present illness as well as discuss ongoing treatment and aftercare plan. We will also touch base with his current community psychiatrist Dr. Montiel so as to review his current community psychiatric care as well as discuss ongoing treatment and after care plan. 5. Psychiatric treatment team will continue to evaluate the patient on a regular basis and when patient does reach maximum benefit for this hospitalization, a discharge will be planned which will be mutually acceptable and effective in the predatory animal exterminator. . Panic disorder without agoraphobia 01/18/2018 Assessment & Plan (01/18/2018 9:09 PM CDT): Assessment: Patient`s presentation is concerning for schizophrenia, panic disorder without agoraphobia, anxiety disorder, and unspecified depressive disorder complicated by methamphetamine use disorder. TREATMENT PLAN: 1. Mr. Sidney Gold will be admitted to the 3rd floor of [facility] for crisis stabilization, and he will be offered a safe, secure, structured, and supportive environment throughout the course of his hospitalization. 2. We initiated Seroquel po 50 mg q day, and po 100 mg qhs, Clonazepam po 0.5 mg tid prn for panic attacks, Hydroxyzine po 25 mg q.6 hours p.r.n. for anxiety, trazodone p.o. 50 mg at bedtime p.r.n. for insomnia, as well as comfort medications which will be administered on as needed basis. We discussed risks, benefits, alternatives, and adverse effects of newly started psychotropic medications with the patient who voiced understanding and gave consent. 3. We requested a medical consultation for physical examination to be done by the medical treatment team who will also provide treatment for the patient's medical comorbidities. 4. Patient is scheduled to participate actively in group and individual psychotherapy sessions so as to learn helpful coping and interpersonal skills to help him deal with his ongoing stressors. He will also attend chemical dependency session so as to learn helpful strategies that will help him stay away from methamphetamine or any other illicit drug and prevent methamphetamine or any other illicit drug use relapse. Case Management will be involved in the patient's care so as to touch base with patient's mother/grand mother/family/loved ones to obtain pertinent collateral information that will help us better appreciate history of present illness as well as discuss ongoing treatment and aftercare plan. We will also touch base with his current community psychiatrist Dr. Montiel so as to review his current community psychiatric care as well as discuss ongoing treatment and after care plan. 5. Psychiatric treatment team will continue to evaluate the patient on a regular basis and when patient does reach maximum benefit for this hospitalization, a discharge will be planned which will be mutually acceptable and effective in the predatory animal exterminator. . Anxiety disorder 01/18/2018 Assessment & Plan (01/16/2024 12:27 AM CDT): Known hx, chronic. Previously prescribed amitryptiline 25 mg nightly; reports non compliance. - will hold at this time. Assessment & Plan (01/18/2018 9:09 PM CDT): Assessment: Patient`s presentation is concerning for schizophrenia, panic disorder without agoraphobia, anxiety disorder, and unspecified depressive disorder complicated by methamphetamine use disorder. TREATMENT PLAN: 1. Mr. Sidney Gold will be admitted to the 3rd floor of [facility] for crisis stabilization, and he will be offered a safe, secure, structured, and supportive environment throughout the course of his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
--- OUTSIDE RECORDS SUMMARY | 2024-11-01 09:36 | XMS_ITS | Encounter Summary ---
Author Organization [facility] Healthcare Address [address] [place] [address] Care Team Providers Care Facility Manager Name Role Phone Gail Gregg Unavailable Unavailable No, Physician Primary Care Provider [phone] Encounter Details Date Type Department Care Team (Late st Contact Info) Description 01/30/2023 [facility] Initial Eligibility [facility] Warm Hand Off Program [address] [place], [place] [phone] Chas Osborne Social History Tobacco Use Types Packs/Day Years Used Date Smoking Tobacco: Former Cigarettes Q uit: 11/02/2020 Smokeless Tobacco: Never Alcohol Use Standard Drinks/Week Comments Not Currently [...] often do you attend chur ch or synagogue services? 1 to 4 times per year 08/07/2022 Do you belong to any clubs o r organizations such as buddhist groups, unions, fraternal or athletic groups, or school groups? No 08/07/2022 How often do you attend meet ings of the clubs or organizations you belong to? Never 08/07/2022 Are you , , di vorced, , never , or living with a partner? Never 08/07/2022 AUDIT-C Answer Date Recorded Q1: How often do you have a drink containing alc ohol? Patient declined 08/05/2022 Q2: How many drinks containi ng alcohol do you have on a typical day when you are drinking? Patient declined 08/05/2022 Q3: How often do you have si x or more drinks on one occasion? Patient declined 08/05/2022 Overall Financial Resource Strain (CARDIA) Answe r [...] place to sleep or slept in a half-way (including now)? Yes 08/07/2022 Sex and Gender Information Value Date Recorded Sex Assigned at Not on file Legal Sex Male 12:19 AM BILL PEDDLER Gender Identity Not on file Sexual Orientation Not on file documented as of this encounter Plan of Treatment Not on file documented as of this encounter Goals Goal Patient Goal Type Associated Problems Recent Progress Patient-Stated? Author Attend Narcotics Anonymous meetings Drug Use No Gail Gregg Note: Pt will attend one 12 step meeting before next visit. Improve your coping skills Lifestyle On track( 021 3:27 PM CDT) No Gail Gregg Note: Begin working on toolbox. 01/20/21- Pt expressed an interest in attending IOP documented as of this encounter Visit Diagnoses Not on filedocumented in this encounter Care Teams Facility Manager Relationship Specialty Start Date End Date No, Physician PCP - General 10/24/23 Gail Gregg Gardener Addiction Medicine 12/02/20 documented as of this encounter
--- OUTSIDE RECORDS SUMMARY | 2024-11-01 09:36 | XMS_ITS | Patient Health Record ---
Author Organization [facility] Address [address] [place] [address] Care Team Providers Care Printed Circuit Board Pcb Draftsman Name Role Phone Alicia Rodríguez Primary Care Provider [phone] Allergies No Known Allergies Reason For Referral No Information Medications Medication SIG (Take, Route, Frequency, Duration) Notes Start Date End Date Status traZODone HCl 50 MG 1 tablet at bedtime as needed Orally Once a day; Duration: 30 day(s) Active clonazePAM 0.5 MG 1 tablet Orally Once a day Active Gabapentin 300 MG 1 capsule Oral 3 edy es a day; Duration: 30 days Active Invega Sustenna 156 MG/ML 1 mL Intramusc ular; Duration: 30 day(s) Active Social History Tobacco Use: Social History Observation Description Date Details (start date - stop date) Light tobacco s moker NA - NA Sex Assigned At : Social History Observation Description Sex Assigned At Male Dont use, Tobacco Use/Smoking Question Answer Notes Are you a nonsmoker Tobacco Control (Standard) Question Answer Notes Tobacco use: Light tobacco smoker Additional Findings: Tobacco user Light cigarett e smoker (1-9 cigs/day) Problems Problem Type SNOMED Code ICD Code Onset Dates Problem Status W/U Status Risk Notes Problem Schizoaffective disorder (37607771) Schizoaffective disorder (F25.9) Active confirmed Problem Arm paresthesia, left (R20.2) Active confirmed Vital Signs Heart Rate 117 /min 08/26/2024 Temperature 97.6 degrees Fahrenheit 08/26/2024 Respiratory Rate 16 /min 08/26/2024 Blood pressure diastolic 60 mm Hg 08/26/2024 Oximetry 99 % 08/26/2024 Height 72.25 in 08/26/2024 Blood pressure systolic 104 mm Hg 08/26/2024 Weight 162.8 lbs 08/26/2024 BMI 21.92 kg/m2 08/26/2024 Encounters Encounter Location Date Provider Diagnosis [address], [place] [address] 08/26/2024 Alicia Rodríguez Adult general medical exam Z00.00 ; History of substance use Z87.898 and Arm paresthesia, left R20.2 Assessments Encounter Date Diagnosis (ICD Code) Assessment Notes Treatment Notes Treatment Clinical Notes Section Notes 08/26/2024 Adult general medical exam (ICD-10 - Z00.00) 08/26/2024 History of substance use (ICD-10 - Z87.898) Schedule for MAT new patient 08/26/2024 Arm paresthesia, left (ICD-10 - R20.2) Bracing or splinting: Wearing a padded brace or splint when you sleep might help keep your elbow straight.Exercise: Nerve gliding exercises might help your ulnar nerve to slide more easily through the cubital tunnel. These exercises might also prevent stiffness in your arm and wrist. One exercise you could try is holding your arm in front of you with your elbow straight, then curling your wrist and fingers toward your body. Then, push them away from you and bend your elbow. Check with your healthcare provider to see if nerve gliding exercises are right for youNonsteroidal anti-inflammatory drugs: Medications such as Ibuprofen (Advil, Motrin) might help. They can reduce the swelling around your nerve and lessen your pain from cubital tunnel syndrome. Plan Of Treatment Pending Test Test Name Order Date EMG, upper extemity 08/26/2024 Future Test Test Name Order Date HIV Screen *HIV 1, 2 Ab, p24 Ag ([id number]) 08/26/2024 Hemoglobin A1c* 08/26/2024 CBC With Differential/Platelet* 08/27/19 Hepatitis B Surf Ab Quant* 08/26/2024 Hepatitis C Virus Antibody w/Rflx to Juan Ramon ntitative Real-time PCR ([id number]) 08/26/2024 TSH+Free T4* 08/26/2024 Lipid Panel* 08/26/2024 CMP 14 Comprehensive Metabolic Panel* QuantiFERON-TB Gold Plus ([id number]) 2024 Insurance Providers Payer Name Payer Address Payer Phone Subscriber Number Group Number Insured Name Patient Relationship to Insured Coverage Start Date Coverage End Date [employer] [address] [place] [address] [id number] Sidney Jiménez Self - patient is the insured 3 [employer] [address] [place] [address] [id number] Sidney Jiménez Self - patient is the insured 3 Medical (General) History Surgical History Surgery Date(Month/Year) Hospitalization History Reason Date(Month/Year)
--- OUTSIDE RECORDS SUMMARY | 2024-11-01 09:36 | XMS_ITS | Clinical Summary ---
Author Organization [facility] Address [address] [place] [address] Care Team Providers Care Calender Inspector Name Role Phone Gail Gregg Unavailable Unavailable No, Physician Primary Care Provider [phone] Allergies No known active allergies Medications gabapentin [...] inpatient. Assessment & Plan (05/09/2022 8:26 PM TAFFY CANDY MAKER): Stable, well controlled; continue prilosec 40 mg daily Assessment & Plan (05/02/2022 5:45 PM TAFFY CANDY MAKER): Stable, well controlled; no significant side effects from medication Continue omeprazole 40 mg daily Assessment & Plan (04/04/2022 5:17 PM TAFFY CANDY MAKER): Will, well controlled; continue omeprazole 40 mg daily Assessment & Plan (09/08/2021 12:19 PM CDT): Stable, well controlled; continue omeprazole 40 mg daily Assessment & Plan (07/04/2021 12:52 PM CDT): Stable, well controlled; continue prednisone 40 mg daily Assessment & Plan (06/02/2021 4:16 PM TAFFY CANDY MAKER): Patient continues to have regular acid reflux; will start omeprazole 40 mg daily Psychophysiological insomnia 02/17/2021 Assessment & Plan (06/02/2021 4:15 PM TAFFY CANDY MAKER): Stable, improving control; continue amitriptyline 50 mg nightly Assessment & Plan (05/17/2021 1:48 PM TAFFY CANDY MAKER): Continue amitriptyline 50 mg at bedtime Assessment & Plan (02/17/2021 4:24 PM TAFFY CANDY MAKER): Unclear etiology, patient reports no substance use; [...] have patient continue to engage with peer disaster recovery consultant, patient may benefit from intensive outpatient therapies to continue residential teachings This time will continue buprenorphine 4 mg b.i.d. for risk reduction to reduce amount of substances use but patient will continue to monitor closely Assessment & Plan (05/09/2022 8:29 PM TAFFY CANDY MAKER): Not well controlled; continues to have some [...] PRS Assessment & Plan (05/02/2022 5:46 PM TAFFY CANDY MAKER): Improving, though still has positive urine drug screen; patient denies use of fentanyl in over 2 weeks; patient reports he has been taking medication regularly, has been having improvement in symptoms as he is able to visit with sister and grandmother over [place] [employer] to focus on improved aspects of life, has been to 1 meeting Continue buprenorphine 4 mg b.i.d.; encouraged patient to continue to engage with peer disaster recovery consultant, as well as regular mutual support meetings Assessment & Plan (04/04/2022 5:16 PM TAFFY CANDY MAKER): Well controlled, improving; last urine drug screen positive for fentanyl, but patient denies use of any substances since last visit Patient reports that medicine and staying home are helping with symptoms Patient is interested in online mutual support groups, working on staying on schedule and changing mind set Continue buprenorphine 4 mg b.i.d. Assessment & Plan (02/28/2022 4:53 PM TAFFY CANDY MAKER): Not well controlled, patient continues to regularly [...] metabolite Assessment & Plan (02/05/2022 10:03 AM TAFFY CANDY MAKER): Not well controlled, recently admitted for overdose, though patient denies use of fentanyl Patient has been trying to stay home, prevention use, currently living with mother and her boyfriend Patient states that he has interest in working recovery, but has been a to no recent mutual support meetings Encouraged patient continue to engage with peer disaster recovery consultant or developed long-term strategy for sobriety Given [...] daily Assessment & Plan (06/02/2021 4:15 PM TAFFY CANDY MAKER): Not well controlled, patient minimizes use, reports that he is not seek out substances, but noted to have consistent use based upon repeat positive fentanyl results and urine drug screens Patient is interested in tapering of Suboxone, feels that is not will decrease dose to 4 mg q.d. Patient will likely benefit from a higher level of care, patient working with [facility] hand[facility] program for referral to [facility] or [facility] for more intensive care Assessment & Plan (05/17/2021 1:48 PM TAFFY CANDY MAKER): Not well controlled, patient continues to struggle with substance use, most recent urine drug screen was positive for amphetamines cocaine and fentanyl Patient denies any previous issues Will recommend patient follow-up with [facility] for continued counseling Follow-up in approximately 2 weeks given prior urine drug screen Continue buprenorphine 8 mg b.i.d., patient continues to struggle and has incomplete amount of knee Suboxone in urine drug screen, will review need for higher level of care Assessment & Plan (03/18/2021 2:28 PM TAFFY CANDY MAKER): Stable, well controlled; patient has had mixed [...] groups Assessment & Plan (03/03/2021 2:51 PM TAFFY CANDY MAKER): Not well controlled, patient continues to have positive urine drug screens for fentanyl; patient denies use Will continue to engage with patient, encourage counseling through [facility] continue buprenorphine 8 mg b.i.d. as patient has positive buprenorphine levels Continue to work to engage patient understand continued use Assessment & Plan (02/17/2021 4:23 PM TAFFY CANDY MAKER): Stable, unclear about controlled; patient denies use [...] to engage in mutual support groups, discussion disaster recovery consultant Assessment & Plan (12/16/2020 12:48 PM CDT): [...] 03/02/2020 Assessment & Plan (03/02/2020 6:27 AM TAFFY CANDY MAKER): WBC 13, with ANC 9.2. Afebrile, but tachycardic to 110s at admission. History of pericarditis. Not endorsing CP or any constitutional symptoms of infection. Increased RBC and plt, may be hemoconcentrated. If WBC does not resolve, consider further infectious work-up: HIV, RPR, UA, BCx. -Daily CBC -EKG -CTM Elevated serum creatinine 03/02/2020 Assessment & Plan (03/02/2020 6:17 AM TAFFY CANDY MAKER): Cr 1.08. Previous Cr in 2018 was 0.89. May be due to poor PO intake from disorganization. -q2 day BMP -CTM Schizophrenia, unspecified 01/18/2018 Assessment & Plan (08/17/2022 4:12 PM CDT): Not well controlled, patient recently admitted to hospital with episodes psychosis; continue Zyprexa 50 mg daily, amitriptyline 25 mg nightly, hydroxyzine 25 mg p.r.n. for anxiety Assessment & Plan (05/09/2022 8:27 PM TAFFY CANDY MAKER): Stable, patient follows with psychiatry for management of schizophrenia; conitinue current medications Assessment & Plan (02/05/2022 10:02 AM TAFFY CANDY MAKER): Stable, generally well controlled; follows with Dr. [...] be admitted to the 3rd floor of [facility] for crisis stabilization, and [...] be mutually acceptable and effective in the middle or intermediate school principal. . Panic disorder without agoraphobia 01/18/2018 Assessment & Plan (01/18/2018 9:09 PM CDT): Assessment: Patient`s presentation is concerning for schizophrenia, panic disorder without agoraphobia, anxiety disorder, and unspecified depressive disorder complicated by methamphetamine use disorder. TREATMENT PLAN: 1. Mr. Sidney Gold will be admitted to the 3rd floor of [facility] for crisis stabilization, and [...] be mutually acceptable and effective in the middle or intermediate school principal. . Anxiety disorder 01/18/2018 Assessment & Plan [...] be admitted to the 3rd floor of [facility] for crisis stabilization, and [...] be mutually acceptable and effective in the middle or intermediate school principal. . Moderate methamphetamine use disorder 01/18/2018 Assessment [...] be admitted to the 3rd floor of [facility] for crisis stabilization, and [...] be mutually acceptable and effective in the middle or intermediate school principal. . 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 . Psychoses ([facility]) 01/17/2018 Assessment & Plan (04/04/2022 5:17 PM TAFFY CANDY MAKER): General anxiety, stress around the holidays; no current individual counseling, but following with psychiatry Continue tomonitor Assessment & Plan (03/02/2020 8:58 AM TAFFY CANDY MAKER): Mr. Gold is a 24-year-old man with [...] adjustment. Recommendation: - please admit VOLUNTARILY to [facility], [facility], or other appropriate facility pending [...] Refused),04/02/2020(Deferred: Patient Refused),04/02/2019(Deferred: Patient Refused),04/02/2019(Deferred: Patient Refused) Medical History Medical History Date Comments Schizophrenia Panic disorder Pericarditis Pneumonia 12/17/2020 Family History Medical History Relation Name Comments No Known Problems Brother 1 No Known Problems Brother 2 No Known Problems Father No Known Problems Mother No Known Problems Sister 1 No Known Problems Sister 2 No Known Problems Sister 3 Relation Name Status Comments Brother 1 Alive Brother 2 Alive Father Alive Mother Alive Sister 1 Alive Sister 2 Alive Sister 3 Alive Social History Tobacco Use Types Packs/Day Years [...] with family, friends, or neighbors? Never 08/08/19 23 How often do you get togethe r with friends or relatives? Never 08/07/2022 How often do you attend chur ch or roman catholic services? 1 to 4 times per year 08/07/2022 Do you belong to any clubs o r organizations such as uatsdin groups, unions, fraternal or athletic groups, or [...] place to sleep or slept in a halfway (including now)? Yes 08/07/2022 Personal Safety Answer Date Recorded Have you ever been in or are you currently in a harmful physical or emotional relationship or is someone making you feel afraid or unsafe? Denies 05/05/2024 Sex and Gender Information Value Date Recorded Sex Assigned at Not on file Legal Sex Male 12:19 AM TAFFY CANDY MAKER Gender Identity Not on file Sexual Orientation Not on file Obstetrics History Last Filed Vital Signs Vital Sign Reading Time Taken Comments Blood Pressure 110/50 05/05/2024 11:00 PM TAFFY CANDY MAKER Pulse 102 05/05/2024 11:00 PM TAFFY CANDY MAKER Temperature 36 C (96.8 F) 04/01/2024 8:46 AM TAFFY CANDY MAKER Respiratory Rate 18 05/05/2024 11:00 PM TAFFY CANDY MAKER Oxygen Saturation 96% 05/05/2024 11:00 PM TAFFY CANDY MAKER Inhaled Oxygen Concentration - - Weight 81.6 kg (180 lb) 05/05/2024 4:56 PM TAFFY CANDY MAKER Height 185.4 cm (6' 1) 05/05/2024 4:56 PM TAFFY CANDY MAKER Body Mass Index 23.75 05/05/2024 4:56 PM TAFFY CANDY MAKER Plan of Treatment Health Maintenance Due Date Last Done Comments Hepatitis C Screening 1993 DTaP/Tdap/Td Vaccine (1 - Tdap) 2004 Varicella Vaccines (1 of 2 - 13+ 2-dose series) 2006 Hepatitis B Screening 10/19/2011 Regular Well Visit/Exam 18-64 10/19/2011 HPV Vaccines (1 - 3-dose SCDM series) 2020 Depression Screening 08/05/2023 08/04/2022, 04/06/2022, 02/09/2022, Additional history exists Influenza Vaccine (#1) 2024 Pneumococcal vaccine <65 Aged Out No longer eligible based on patient's age to complete this topic Goals Goal Patient Goal Type Associated Problems Recent Progress Patient-Stated? Author Attend Narcotics Anonymous meetings Drug Use No Gail Gregg Note: Pt will attend one 12 step meeting before next visit. Improve your coping skills Lifestyle On track(10/28/2 021 3:27 PM CDT) Gail Ruth Note: Begin working on toolbox. 01/20/21- Pt expressed an interest in attending [facility] Insurance [facility] [place] [address] [facility] Advance Directives For more information, please contact: [phone] * Full Code (Latest Code Status on [...] 4:41 AM 03/08/2020 8:27 PM Care Teams Calender Inspector Relationship Specialty Start Date End Date No, Physician PCP - General 10/24/23 Gail Gregg Truss Assembler Addiction Medicine 12/02/20
--- OUTSIDE RECORDS SUMMARY | 2024-11-01 09:36 | XMS_ITS | Patient Health Record ---
Author Organization [facility] Address [address] [place] [address] Care Team Providers Care Chair And Couch Maker Name Role Phone Marco A Casiano Unavailable [phone] Reason For Referral No Information Medications Medication SIG (Take, Route, Frequency, Duration) Notes Start Date End Date Status Gabapentin 300 MG Oral Ac tive OLANZapine 15 MG Oral Act rafal Buprenorphine HCl-Naloxone HCl 8-2 MG Sublingual Active carBAMazepine ER 200 MG Oral Active QUEtiapine Fumarate 100 MG Oral Active traZODone HCl 100 MG Oral Active Plan Of Treatment No Information Insurance Providers Payer Name Payer Address Payer Phone Subscriber Number Group Number Insured Name Patient Relationship to Insured Coverage Start Date Coverage End Date [facility] [address] [place] [address] [id number] AMBER KIM Child - Insured has Financial Responsibility Medical (General) History Surgical History Surgery Date(Month/Year) Other Any surgical history 01/19/2019
[2024-11-01 09:38] VITALS: BP 120/79; PULSE 115; RESP 18; TEMP 36.6; O2SAT 100
--- NOTE | 2024-11-01 10:04 | ECG_ITS ---
Test Date: 2024-11-01 10:12:36 Measurements Intervals [place] Rate: 106 P: 38 RI: 148 QRS: 91 QRSD: 90 T: 47 QT: 299 QTc: 397 Interpretive Statements SINUS TACHYCARDIA RIGHT AXIS DEVIATION BASELINE ARTIFACT- I, II, AVR BORDERLINE ECG Compared to ECG 11/07/2023 21:10:25 Ectopic atrial rhythm no longer present Electronically Signed On 11-01-2024 14:45:41 CDT by Durga Kirk D.O.
--- NOTE | 2024-11-01 10:38 | ED.GENADULT ---
HPI - General Adult General Chief complaint: Skin/Abscess/Foreign Body Stated complaint: Chest Pain Source: patient Mode of arrival: ambulatory Limitations: no limitations History of Present Illness HPI narrative: Pt presents for evaluation of pain under the left areola. Symptom onset 1.5r weeks ago. Pain has been constant, 8/10 in severity. He denies any drainage from the area. He has times where he feels like his heart is beating fast and has intermittent SOB. He applied scotch tape to the area, noting that it helped secure the area. He now has redness in the site of the tape and reports a tingling sensation as being present. He denies cough. He took tylenol for his symptoms. He is prescribed gabapentin 300mg TID but states he only takes once daily. His chart indicates he has a history of methamphetamine use. He states that he last used several years ago, however his mother, present in the room today, shakes her head as saying no disagreeing with pt when he provides me with that response. Related Data Home Medications ?Medication ?Instructions ?Recorded ?Confirmed ?Last Taken ?Type clonazepam 0.5 mg tablet 0.5 mg PO TID 06/28/21 11/01/24 Unknown History gabapentin 300 mg capsule 300 mg PO TID 11/08/23 11/01/24 Unknown History olanzapine 15 mg tablet 15 mg PO DAILY 11/08/23 03/13/24 Unknown History trazodone 50 mg tablet 50 mg PO DAILY 11/08/23 11/01/24 Unknown History Allergies Allergy/AdvReac Type Severity Reaction Status Date / Time No Known Allergies Allergy Unknown Verified 03/13/24 15:49 Review of Systems Review of Systems: CONSTITUTIONAL: Denies fever, chills, or sweats. EYES: Denies visual changes, redness, or discharge. ENT: Denies rhinorrhea, congestion, sore throat, or otalgia. CARDIOVASCULAR: Reports intermittent racing heart rate RESPIRATORY:Reports SOB. Denies cough GASTROINTESTINAL: Denies abdominal pain, nausea, vomiting, or diarrhea. GENITOURINARY: Denies dysuria or hematuria. SKIN: Reports redness to left anterior chest MUSCULOSKELETAL: Reports pain under the left areola NEUROLOGIC: Reports tingling to left side of the chest. Denies headache, numbness, dizziness, or weakness. PSYCHIATRIC: Denies anxiety or depression. [facility] Past Medical History Medical History Methamphetamine abuse Heroin abuse Anxiety Schizoaffective disorder Alcoholism Polysubstance abuse Bipolar 1 disorder Surgical History Surgical History History of facial surgery Jaw reconstruction Family History Family History Father Drug abuse Mother Depression Social History Social History Social History: The patient is single. The patient was back and forth between his mom and dad's house. The patient is disabled due to his mental illness. He does not have any children. The patient has a history of alcohol abuse. He has a history of polysubstance abuse. Code status: Full code With surrogate decision maker: Parents Smoking packs per day: 1 Smoking cigarettes per day: 20.0 Smoking status: Never smoker Alcohol intake: current Substance use: current Substance use type: amphetamines Gender identity (if verbalized by the patient): Male Spiritual care concerns: No Exam Narrative: GENERAL: Well-appearing, well-nourished, and in no acute distress. HEAD: Normocephalic, atraumatic. EYES: PERRLA and EOMI. ENT: Nares clear, no rhinorrhea or epistaxis. Mucous membranes moist. Oropharynx without tonsillar hypertrophy exudate or other lesions. Bilateral TMs pearly jones nonbulging NECK: Supple. No adenopathy or masses. No carotid bruits or JVD CHEST: Clear to auscultation. No respiratory distress. No wheezes rales or rhonchi HEART: Regular rate and rhythm. No murmur heard. Normal peripheral pulses. ABDOMEN: Soft, nontender, nondistended, normal active bowel sounds. EXTREMITIES: Normal range of motion. No edema. SKIN: There are a few linear areas of erythema to the left side of the chest beneath the a piece of scotch tape. NEURO: No focal deficits. Alert and oriented x3. PSYCH: Anxious Course Course Emergency Course: This is a 29-year-old male who presented for evaluation of discomfort underneath the left areola. He has some overlying erythema which may be from scotch tape. Less likely would be early shingles. He may also have some paranoia related to schizoaffective disorder and/or meth use. Chest x-ray negative. EKG showed sinus tachycardia. Recommended he take gabapentin 3 times daily as prescribed instead of once daily. He should follow up with his primary provider and go to the ER for worsening symptoms. Patient in agreement with plan of care. Level of Care: Express Care Visit Vital Signs Vital signs: Vital Signs Temperature 36.6 C 11/01/24 09:38 Pulse Rate 115 H 11/01/24 09:38 Respiratory Rate 18 11/01/24 09:38 Blood Pressure 120/79 11/01/24 09:38 Pulse Oximetry 100 11/01/24 09:38 Oxygen Delivery Room Air 11/01/24 09:38 Temperature 36.6 C 11/01/24 09:38 Pulse Rate 115 H 11/01/24 09:38 Respiratory Rate 18 11/01/24 09:38 Blood Pressure 120/79 11/01/24 09:38 Pulse Oximetry 100 11/01/24 09:38 Oxygen Delivery Room Air 11/01/24 09:38 Medical Decision Making Vital Signs Vital Signs: Vital Signs Temperature 36.6 C 11/01/24 09:38 Pulse Rate 115 H 11/01/24 09:38 Respiratory Rate 18 11/01/24 09:38 Blood Pressure 120/79 11/01/24 09:38 Pulse Oximetry 100 11/01/24 09:38 Oxygen Delivery Room Air 11/01/24 09:38 Temperature 36.6 C 11/01/24 09:38 Pulse Rate 115 H 11/01/24 09:38 Respiratory Rate 18 11/01/24 09:38 Blood Pressure 120/79 11/01/24 09:38 Pulse Oximetry 100 11/01/24 09:38 Oxygen Delivery Room Air 11/01/24 09:38 Imaging Data Radiologist's impression: EXAMINATION: XR chest 2V DATE: 11/01/2024 10:27 INDICATION: Shortness of breath and tachycardia TECHNIQUE: PA and lateral views of the chest were obtained. COMPARISON: Chest radiograph dated 11/09/2023 FINDINGS: The lungs are clear with no focal airspace opacities, pulmonary edema, pleural effusion or pneumothorax. The cardiomediastinal silhouette is normal. Visualized bones and soft tissues are unremarkable. IMPRESSION: 1. No acute cardiopulmonary disease. ECG Data EKG #1: ECG completion date: 11/01/24 ECG completion time: 10:12 Interpretation: Sinus tachycardia, rate 106, right axis deviation, otherwise normal EKG Discharge Plan Discharge Clinical Impression: Left-sided chest wall pain Patient Disposition: Home Condition: Stable Instructions: Antibiotic Form, Chest Wall Pain (ED) Patient Language: Pakistani Prescriptions: No Action clonazepam 0.5 mg tablet 0.5 mg PO TID trazodone 50 mg tablet 50 mg PO DAILY gabapentin 300 mg capsule 300 mg PO TID olanzapine 15 mg tablet 15 mg PO DAILY Follow-up/Referrals: Fili Hurst MD [Physician] - Time of Disposition: 11:19
== END 2024-11-01 11:25 | disposition home or self-care (01) ==
PROVIDERS: Emergency Provider Nurse Practitioner
DX: R07.89 Other chest pain (principal); F41.9 Anxiety disorder, unspecified; F25.9 Schizoaffective disorder, unspecified
CPT/HCPCS: 71046; 93005; 99213; G0463